=== PATIENT | female | born 1940 | race Caucasian/White ===

== ENCOUNTER → 2017-02-20 | Outpatient (CLI) | payer OTHER ==
[~2017-02-20] MED LIST: ASCRIPTIN PO; ATR25 PO; LEVO-217 PO; LISI-725 PO; MEPE1TAB PO; OXAZ10CA25 PO; [UNRECOGNIZED DRUG - CODE] PO
[2017-02-20 18:11] LABS: ALT/SGPT 31 U/L (12-78); AST/SGOT 18 U/L (15-37); BLOOD UREA NITROGEN 19 mg/dl (7-18); BUN/CREATININE RATIO 19.1 (10-20); CARBON DIOXIDE 29 mmol/L (21-32); CHLORIDE 104 mmol/L (98-107); GLUCOSE 107 mg/dl (70-99); POTASSIUM 4.1 mmol/L (3.5-5.1); SODIUM 139 mmol/L (136-145)
[2017-02-20 18:21] LABS: ALKALINE PHOSPHATASE 155 U/L (45-117)
== END | disposition home or self-care (01) ==
LOC: C.LABPVFM 12:54
PROVIDERS: ATTEND Family Medicine
DX: E03.9 Hypothyroidism, unspecified (principal); I10 Essential (primary) hypertension; M26.609 Unspecified temporomandibular joint disorder, unspecified side; E55.9 Vitamin D deficiency, unspecified

== ENCOUNTER → 2018-02-01 | Outpatient (CLI) | payer OTHER ==
[2018-02-01 17:39] LABS: HEMATOCRIT 42.8 % (37-47); HEMOGLOBIN 14.2 g/dL (12.0-16.0); MEAN CELL VOLUME 90.7 fL (80-100); MEAN CORPUSCULAR HEMOGLOBIN 30.1 pg (25-34); MEAN CORPUSCULAR HGB CONC 33.2 g/dl (32-36); MEAN PLATELET VOLUME 9.5 fL (7.4-10.4); PLATELET COUNT 270 K/uL (130-400); RED CELL DISTRIBUTION WIDTH CV 12.8 % (11.5-14.5); RED CELL DISTRIBUTION WIDTH SD 42.7 fL (36.4-46.3); WHITE BLOOD COUNT 5.51 K/uL (4.8-10.8)
[2018-02-01 18:14] LABS: ALBUMIN 3.9 gm/dl (3.4-5.0); ALT/SGPT 22 U/L (12-78); AST/SGOT 14 U/L (15-37); BLOOD UREA NITROGEN 16 mg/dl (7-18); CALCIUM 9.2 mg/dl (8.5-10.1); CARBON DIOXIDE 28 mmol/L (21-32); CREATININE 1.07 mg/dl (0.60-1.20); GLUCOSE 102 mg/dl (70-99); POTASSIUM 3.7 mmol/L (3.5-5.1); SODIUM 136 mmol/L (136-145)
[2018-02-01 18:26] LABS: ALKALINE PHOSPHATASE 164 U/L (45-117); CHOLESTEROL 241 mg/dl (0-200); LDL CHOLESTEROL CALCULATED 147 mg/dl
[2018-02-02 07:54] LABS: HEMOGLOBIN A1C 5.7 % (4.5-5.6)
== END | disposition home or self-care (01) ==
LOC: C.LABPVFM 13:04
PROVIDERS: ATTEND Family Medicine
DX: I10 Essential (primary) hypertension (principal); E78.5 Hyperlipidemia, unspecified; R73.9 Hyperglycemia, unspecified; E55.9 Vitamin D deficiency, unspecified; E03.9 Hypothyroidism, unspecified

== ENCOUNTER 2024-06-03 15:21 | Inpatient (IN) ==
--- NOTE | 2024-06-03 16:06 | Emergency Department Note ---
Impression & Plan Abdominal pain, Transaminitis, Elevated bilirubin, Vomiting, HTN (hypertension) ED Provider Note NAME: LAURA SOLOMON AGE: 83 SEX: F : 1940 ARRIVES VIA: Ambulance INFORMANT: Patient ED PROVIDER(S): Jomar Morales DO CHIEF COMPLAINT: abdominal pain HPI: Patient is a 83-year-old female who presents to the ER with a past medical history of hyperlipidemia, hypertension for right lower quadrant abdominal pain associated with nausea, vomiting, and diarrhea. She also has pain in the left flank associated with this. Does admit to a history of cholecystectomy and appendectomy. Symptoms have been present since Sunday. She denies any other exacerbating or remitting factors. No fevers. ADDITIONAL HISTORY OBTAINED: Per HPI Chronic Medical/Social Conditions Affecting Care: Per HPI PAST MEDICAL HISTORY:See Below PAST SURGICAL HISTORY:See Below FAMILY HISTORY:See Below SOCIAL HISTORY:See Below HOME MEDICATIONS:See Below ALLERGIES:See Below VITALS:See Below PHYSICAL EXAMINATION: GENERAL: Sitting up in bed, alert, well appearing, well nourished, no distress, non-toxic EYE EXAM: normal conjunctiva. PERRL and EOM's grossly intact. OROPHARYNX: mucous membranes are moist NECK: supple, no nuchal rigidity, no adenopathy, non-tender LUNGS: Clear to auscultation. Normal chest wall mechanics HEART: no murmurs, S1 normal and S2 normal ABDOMEN: abdomen soft, non-tender, normo-active bowel sounds, no masses, no rebound or guarding. BACK: Back is symmetrical on inspection and there is no deformity, no midline tenderness, no CVA tenderness. SKIN: no rashes and no bruising UPPER EXTREMITIES: upper extremities are grossly normal. LOWER EXTREMITIES: No pitting edema. NEURO EXAM: Normal sensorium, cranial nerves II-XII grossly intact, normal speech, no gross weakness of arms, no gross weakness of legs. MEDICAL DECISION MAKING: Patient is an 83-year-old female who presents ER for the above-stated complaint. IV was established blood work was obtained. Labs show no significant leukocytosis or anemia. INR was unremarkable. BMP with a hypokalemia 3.3. LFTs with a significant transaminitis of 300-400. T. bili at 5 lipase was normal. UA without white cells. I discussed with GI and they are agreeable to keeping the patient here and getting an MRCP as an inpatient. The hospitalist refused until results of the MRCP. MRCP was ordered and was negative. IV discussed with the hospitalist and they will admit. Patient was given IV fluids Reglan Zofran and updated bedside. Patient was also given Toradol and hydralazine for the elevated blood pressure. Consults/Care Managements Discussions: Per MDM Triage Nursing notes reviewed. Limited review of prior medical records performed Vital Signs: reviewed and remarkable for no significant abnormalities Differential diagnosis: Differential diagnoses includes but is not limited to gastritis, peptic ulcer disease, GERD, gallbladder disease, pancreatitis, small bowel obstruction, appendicitis, diverticulitis, hernia, urinary tract infection, torsion, perforation, trauma, infectious. ER treatment provided: See below Diagnostics interpreted by me include EKG and cardiac monitoring as listed below: -Cardiac Monitoring: An order was placed for continuous cardiac monitoring. The monitor shows a rate of 70 with sinus rhythm. -ECG: Sinus rhythm rate of 66 Left axis No PVCs QTc 423 -Laboratory studies:Interpreted by me as stated above in MDM and shown below. Imaging studies: Xrays: As interpreted by me:none CTs show: CT abdomen pelvis per my preliminary interpretation showed no obvious bowel obstruction CT abdomen pelvis per radiology as described above MRCP showed no obstruction Procedures:none Critical Care: None Past Med/Surg History Problem List (Updated 06/03/24 @ 22:20 by Jomar Morales DO) HTN (hypertension) (Acute) Vomiting (Acute) Elevated bilirubin (Acute) Transaminitis (Acute) Abdominal pain (Acute) Impacted cerumen of both ears Routine health maintenance (Chronic) Vitamin D deficiency (Chronic) Temporomandibular joint dysfunction syndrome (Chronic) Hypothyroidism (Chronic) Hyperlipidemia (Chronic) Elevated blood sugar level (Acute) History of mandibular surgery No pertinent family history HTN (hypertension) TMJ (dislocation of temporomandibular joint) Medical History Elevated blood sugar level HTN (hypertension) Hyperlipidemia Hypothyroidism No pertinent family history Temporomandibular joint dysfunction syndrome TMJ (dislocation of temporomandibular joint) Vitamin D deficiency Surgical History H/O oophorectomy History of mandibular surgery Family History Mother Hypertension Denies family history of Ovarian cancer Prostate cancer Diabetes Myocardial infarction Breast cancer Colorectal cancer Social History Smoking Status: Never smoker Second Hand Exposure: No; Do You Dip or Chew Tobacco: No; Hx Alcohol Use: No Hx Substance Use: No Preferred Language: Turkish Communication Ability: Effective Visual Impairment: No Limitations Hearing Ability: Normal marital status: Current Living Situation: Spouse current occupational status: retired How many Children do You have: 3 Feels Safe at Home: Yes Childhood Exposure to Second-Hand Smoke: Yes Diet: regular caffeine: Yes (coffee) Physical Activity Frequency: 1-2 Times per Week Seatbelt Use: sometimes Sunscreen Use: No Allergies Allergies Allergy/AdvReac Type Severity Reaction Status Date / Time acetaminophen Allergy Unknown Unknown Verified 06/03/24 18:29 codeine Allergy Unknown Unknown Verified 06/03/24 18:29 cyclobenzaprine Allergy Unknown Unknown Verified 06/03/24 18:29 diazepam Allergy Unknown Unknown Verified 06/03/24 18:29 Opioids - Morphine Analogues Allergy Unknown Unknown Verified 06/03/24 18:29 oxycodone Allergy Unknown Unknown Verified 06/03/24 18:29 propoxyphene Allergy Unknown Unknown Verified 06/03/24 18:29 Home Meds Home Medications Medication Instructions Recorded Confirmed atorvastatin 40 mg tablet 40 mg PO DAILY 06/03/24 06/03/24 hydroxyzine pamoate 50 mg capsule 50 mg PO HS 06/03/24 06/03/24 meprobamate 400 mg tablet 400 mg PO .Q4-6XDAY PRN pain 06/03/24 06/03/24 oxazepam 10 mg capsule 10 mg PO .Q4-6XDAY PRN TMJ 06/03/24 06/03/24 Previous Rx's Medication Instructions Recorded cholecalciferol (vitamin D3) 50 2,000 units PO DAILY #30 caps 05/13/19 mcg (2,000 unit) capsule hydrochlorothiazide 12.5 mg tablet 12.5 mg PO DAILY #90 tabs 07/13/23 lisinopril 20 mg tablet 20 mg PO DAILY #90 tabs 07/13/23 morphine 15 mg tablet,extended 15 mg PO HS PRN severe pain #90 05/08/24 release tabs levothyroxine 75 mcg tablet 75 mcg PO DAILY #30 tabs 05/23/24 Results & Data (ED) Vital Signs Vital Signs - 24 hr 06/03/24 15:45 06/03/24 15:45 06/03/24 15:54 Temperature 37.0 C Temperature Source Oral Pulse Rate 67 66 70 Pulse Rate from SpO2 Sensor Pulse Rhythm Regular Pulse Strength Normal Respiratory Rate 15 23 Respiratory Effort / Characteristics Non-Labored Respiratory Depth Normal Respiratory Pattern Regular Blood Pressure 175/128 H Blood Pressure Mean 143 Blood Pressure Position Lying Pulse Oximetry 95 Oxygen Delivery Method Room Air Sepsis Recent Fever Within 48 Hours No Sepsis New/Unexplained Change in Mental Status N/A Sepsis Action Taken by Nursing No Action Required 06/03/24 15:56 06/03/24 16:00 06/03/24 16:00 Temperature Temperature Source Pulse Rate 70 65 Pulse Rate from SpO2 Sensor Pulse Rhythm Pulse Strength Respiratory Rate 23 20 Respiratory Effort / Characteristics Respiratory Depth Respiratory Pattern Blood Pressure 187/83 H Blood Pressure Mean 144 Blood Pressure Position Pulse Oximetry 95 Oxygen Delivery Method Room Air Sepsis Recent Fever Within 48 Hours Sepsis New/Unexplained Change in Mental Status Sepsis Action Taken by Nursing 06/03/24 16:00 06/03/24 16:24 06/03/24 16:30 Temperature Temperature Source Pulse Rate 63 Pulse Rate from SpO2 Sensor Pulse Rhythm Pulse Strength Respiratory Rate 25 H Respiratory Effort / Characteristics Respiratory Depth Respiratory Pattern Blood Pressure 187/83 H 195/92 H Blood Pressure Mean 144 129 Blood Pressure Position Pulse Oximetry Oxygen Delivery Method Sepsis Recent Fever Within 48 Hours Sepsis New/Unexplained Change in Mental Status Sepsis Action Taken by Nursing 06/03/24 16:30 06/03/24 16:36 06/03/24 16:57 Temperature Temperature Source Pulse Rate 67 63 Pulse Rate from SpO2 Sensor 63 Pulse Rhythm Pulse Strength Respiratory Rate 25 H 19 Respiratory Effort / Characteristics Respiratory Depth Respiratory Pattern Blood Pressure 195/92 H Blood Pressure Mean 129 Blood Pressure Position Pulse Oximetry 97 Oxygen Delivery Method Sepsis Recent Fever Within 48 Hours Sepsis New/Unexplained Change in Mental Status Sepsis Action Taken by Nursing 06/03/24 17:00 06/03/24 17:09 06/03/24 17:24 Temperature Temperature Source Pulse Rate 58 L 63 Pulse Rate from SpO2 Sensor 58 L 63 Pulse Rhythm Pulse Strength Respiratory Rate 18 Respiratory Effort / Characteristics Respiratory Depth Respiratory Pattern Blood Pressure 201/92 H Blood Pressure Mean 135 Blood Pressure Position Pulse Oximetry 95 99 Oxygen Delivery Method Sepsis Recent Fever Within 48 Hours Sepsis New/Unexplained Change in Mental Status Sepsis Action Taken by Nursing 06/03/24 17:26 06/03/24 17:30 06/03/24 17:30 Temperature Temperature Source Pulse Rate Pulse Rate from SpO2 Sensor Pulse Rhythm Pulse Strength Respiratory Rate Respiratory Effort / Characteristics Respiratory Depth Respiratory Pattern Blood Pressure 200/102 H 208/94 H 208/94 H Blood Pressure Mean 140 126 126 Blood Pressure Position Pulse Oximetry Oxygen Delivery Method Sepsis Recent Fever Within 48 Hours Sepsis New/Unexplained Change in Mental Status Sepsis Action Taken by Nursing 06/03/24 17:30 06/03/24 17:30 06/03/24 17:30 Temperature Temperature Source Pulse Rate 61 Pulse Rate from SpO2 Sensor 61 Pulse Rhythm Pulse Strength Respiratory Rate 26 H Respiratory Effort / Characteristics Respiratory Depth Respiratory Pattern Blood Pressure 208/94 H 208/94 H Blood Pressure Mean 126 126 Blood Pressure Position Pulse Oximetry 98 Oxygen Delivery Method Sepsis Recent Fever Within 48 Hours Sepsis New/Unexplained Change in Mental Status Sepsis Action Taken by Nursing 06/03/24 18:00 06/03/24 18:00 06/03/24 18:03 Temperature Temperature Source Pulse Rate Pulse Rate from SpO2 Sensor 61 Pulse Rhythm Pulse Strength Respiratory Rate Respiratory Effort / Characteristics Respiratory Depth Respiratory Pattern Blood Pressure 170/88 H 170/88 H Blood Pressure Mean 133 133 Blood Pressure Position Pulse Oximetry 93 Oxygen Delivery Method Sepsis Recent Fever Within 48 Hours Sepsis New/Unexplained Change in Mental Status Sepsis Action Taken by Nursing 06/03/24 18:30 06/03/24 18:32 06/03/24 18:32 Temperature Temperature Source Pulse Rate 63 Pulse Rate from SpO2 Sensor Pulse Rhythm Pulse Strength Respiratory Rate 29 H Respiratory Effort / Characteristics Respiratory Depth Respiratory Pattern Blood Pressure 224/85 H 224/85 H Blood Pressure Mean 101 101 Blood Pressure Position Pulse Oximetry Oxygen Delivery Method Sepsis Recent Fever Within 48 Hours Sepsis New/Unexplained Change in Mental Status Sepsis Action Taken by Nursing 06/03/24 18:38 06/03/24 18:38 06/03/24 19:34 Temperature Temperature Source Pulse Rate 72 Pulse Rate from SpO2 Sensor Pulse Rhythm Pulse Strength Respiratory Rate Respiratory Effort / Characteristics Respiratory Depth Respiratory Pattern Blood Pressure 204/83 H 204/83 H Blood Pressure Mean 111 111 Blood Pressure Position Pulse Oximetry Oxygen Delivery Method Sepsis Recent Fever Within 48 Hours Sepsis New/Unexplained Change in Mental Status Sepsis Action Taken by Nursing Laboratory Data 06/03/24 16:33 06/03/24 16:33 Lab Results 06/03/24 06/03/24 Range/Units 16:33 16:47 WBC 9.08 (4.8-10.8) K/ul RBC 4.88 (4.20-5.40) M/uL Hgb 15.1 (12.0-16.0) g/dl Hct 43.2 (37.0-47.0) % MCV 88.5 (80.0-100.0) fL MCH 30.9 (25.0-34.0) pg MCHC 35.0 (32.0-36.0) g/dL RDW Std Deviation 41.0 (36.4-46.3) fL RDW Coeff of Mj 12.7 (11.5-14.5) % Plt Count 223 (130-400) K/uL MPV 9.8 (9.4-12.4) fL Immature Gran % (Auto) 0.3 % Neut % (Auto) 82.9 % Lymph % (Auto) 8.9 % [place] % (Auto) 7.7 % Eos % (Auto) 0.0 % Baso % (Auto) 0.2 % Neut # (Auto) 7.52 H (1.40-6.50) K/uL Lymph # (Auto) 0.81 L (1.20-3.40) K/uL [place] # (Auto) 0.70 H (0.11-0.59) K/uL Eos # (Auto) 0.00 (0.00-0.50) K/uL Baso # (Auto) 0.02 (0.00-0.20) K/uL Immature Gran # (Auto) 0.03 (0.01-0.20) K/uL PT 10.9 (9.0-12.0) Seconds INR 1.0 (0.9-1.1) Sodium 140 (136-145) mmol/L Potassium 3.3 L (3.5-5.1) mmol/L Chloride 100 (98-107) mmol/L Carbon Dioxide 28 (21-32) mmol/L Anion Gap 12 H (3-11) BUN 17 (6-23) mg/dl Creatinine 1.00 (0.6-1.2) mg/dl Est Cr Clr Drug Dosing 37.1 ml/min Est GFR ( Amer) 61.2 ml/min Est GFR (Non-Af Amer) 52.8 ml/min BUN/Creatinine Ratio 17.0 (10-20) Glucose 128 H (70-99(Fasting)) mg/dl Calcium 9.8 (8.6-10.3) mg/dl Total Bilirubin 5.0 H (0.2-1.0) mg/dl AST 387 H (13-39) U/L ALT 461 H (7-52) U/L Alkaline Phosphatase 428 H (34-104) U/L Total Protein 8.4 H (6.0-8.3) gm/dl Albumin 4.8 (3.4-5.0) gm/dl Globulin 3.6 (2.5-4.0) gm/dl Albumin/Globulin Ratio 1.3 (0.9-2) Lipase 9 L (11-82) U/L Urine Color Dark Yellow Urine Appearance Clear (Clear) Urine pH 5.5 (4.5-7.5) Ur Specific [place] 1.026 (1.000-1.030) Urine Protein 2+ H (Negative) Urine Glucose (UA) Negative (Negative) Urine Ketones Negative (Negative) Urine Blood Trace H (Negative) Urine Nitrite Negative (Negative) Urine Bilirubin 2+ H (Negative) Urine Urobilinogen Negative (Negative) Ur Leukocyte Esterase Trace H (Negative) Urine WBC (Auto) 0-5 (0-5) /hpf Urine RBC (Auto) 3-5 H (0-2) /hpf U Hyaline Cast (Auto) 0-2 (0-2) /lpf U Epithel Cells (Auto) 6-10 H (0-2) /hpf Urine Bacteria (Auto) 2+ H (None Seen) Administered Medications Discontinued Medications Hydralazine HCl (Hydralazine Hcl 20 Mg/Ml Vial) 10 mg IV NOW STA Stop: 06/03/24 18:51 Last Admin: 06/03/24 19:03 Dose: 10 mg Documented By: JERILYN Sodium Chloride (Nss) 500 mls @ 999 mls/hr IV .Q31M ONE Stop: 06/03/24 16:33 Last Infusion: 06/03/24 17:56 Dose: Infused Documented By: Admin: 06/03/24 16:39 Dose: 999 mls/hr Documented By: JERILYN Ioversol (Optiray 320 100ml) 95 ml IV ONCE ONE Stop: 06/03/24 17:43 Last Admin: 06/03/24 17:42 Dose: 95 ml Documented By: HARSHAL Ketorolac Tromethamine (Ketorolac Tromethamine 15 Mg/Ml Vial) 10 mg IV NOW ONE Stop: 06/03/24 20:30 Last Admin: 06/03/24 20:59 Dose: 10 mg Documented By: JERILYN Metoclopramide HCl (Metoclopramide Hcl Inj 5 Mg/Ml 2 Ml Vial) 5 mg IV NOW STA Stop: 06/03/24 21:21 Last Admin: 06/03/24 21:30 Dose: 5 mg Documented By: JERILYN Ondansetron HCl (Ondansetron Inj 2 Mg/Ml 2 Ml Vial) 4 mg IV NOW STA Stop: 06/03/24 16:04 Last Admin: 06/03/24 16:38 Dose: 4 mg Documented By: JERILYN Imaging Data Radiologist's Impression: Abdomen/Pelvis CT 06/03/24 16:02 CT abd pelvis IV con only CLINICAL HISTORY: RLQ abd pain and flank pain TECHNIQUE: Helical axial images of the abdomen and pelvis were obtained and displayed. Automated dose lowering techniques and/or adjustment according to patient size were utilized for this exam. This exam was performed with intravenous contrast. CT DOSE: 1168.69 mGy.cm COMPARISON: None available at the time of this dictation. FINDINGS: Lower chest: Bibasilar atelectasis versus scarring is seen. Liver: Unremarkable. No focal lesions are seen. Gallbladder and biliary tree: Patient is status post cholecystectomy. Physiologic prominence of the biliary ducts is noted. Pancreas: Unremarkable, no focal lesions. Spleen: Unremarkable. Adrenals: Unremarkable. Kidneys and ureters: Unremarkable. Bladder: Unremarkable. Reproductive organs: Unremarkable. Bowel: Patient is status post appendectomy. A hiatal hernia is seen. Lymph nodes Retroperitoneal: Unremarkable. Pelvic: Unremarkable. Mesenteric: Unremarkable. Peritoneum: Normal. Vessels: Atherosclerotic calcifications are seen. Abdominal wall: Unremarkable. Bones: Degenerative changes in the visualized spine. IMPRESSION: 1. No acute abnormalities are seen. 2. Status post colectomy. 3. Additional findings are seen. ACT 112: Negative or not required by law. Electronically signed by: Damien Robertson M.D. 06/03/2024 6:05 PM Cholangiopancreatography MRI 06/03/24 19:09 Exam(s): MRI MRCP EXAM: MR Abdomen Without Intravenous Contrast, MRCP Protocol CLINICAL HISTORY: Reason for exam: obstructive liver enzyme pattern. TECHNIQUE: Multiplanar magnetic resonance images of the abdomen without intravenous contrast using MRCP protocol. COMPARISON: CT abdomen and pelvis 06/03/24 FINDINGS: Gallbladder is surgically absent. There is intrahepatic and extra hepatic bile duct dilatation. Common bile duct measures up to 1.5 cm. No choledocholithiasis or obstructing mass lesion is visible. Pancreas appears within normal limits. Pancreatic duct is normal in caliber. Spleen and adrenal glands are unremarkable. Kidneys are similar in size and contour. There is no hydronephrosis. Small simple parapelvic cysts are present bilaterally, more numerous in the left kidney; no follow-up is required. There is no aortic aneurysm. Bowel gas pattern is nonobstructive. IMPRESSION: Biliary dilatation in the setting of cholecystectomy without visible choledocholithiasis or obstructing mass. Consider ERCP for further characterization. Electronically signed by: Edward Ordaz M.D. 06/03/24 22:09 PM Discharge Plan Visit Data Chief Complaint: Abdominal Pain ED Provider: Jomar Morales Discharge Problem: Abdominal pain, Transaminitis, Elevated bilirubin, Vomiting, HTN (hypertension) Forms Stand Alone Forms: [facility] [employer] Prescriptions Prescriptions: No Action lisinopril 20 mg tablet 20 mg PO DAILY Qty: 90 1RF Rx Instructions: PER EXT MED HX--LAST FILLED 07/13/23 FOR 90 TABS. hydrochlorothiazide 12.5 mg tablet 12.5 mg PO DAILY Qty: 90 1RF Rx Instructions: PER EXT MED HX--LAST FILLED 07/13/23 FOR 90 TABS. morphine 15 mg tablet extended release 15 mg PO HS PRN (Reason: severe pain) Qty: 90 0RF levothyroxine 75 mcg tablet 75 mcg PO DAILY Qty: 30 2RF cholecalciferol (vitamin D3) 2,000 unit capsule 2,000 units PO DAILY Qty: 30 0RF atorvastatin 40 mg tablet 40 mg PO DAILY Rx Instructions: PER EXT MED HX --LAST FILLED 01/17/24 FOR 90 TABS oxazepam 10 mg capsule 10 mg PO .Q4-6XDAY PRN (Reason: TMJ) meprobamate 400 mg tablet 400 mg PO .Q4-6XDAY PRN (Reason: pain) hydroxyzine pamoate 50 mg capsule 50 mg PO HS Rx Instructions: PER EXT MED LIST-- CAN BE TAKEN Q4H. Referrals Referrals: Mary Mckeon MD [Primary Care Provider] - Discharge Problem: Abdominal pain Qualifiers: Abdominal location: unspecified location Qualified Code(s): R10.9 - Unspecified abdominal pain Vomiting Qualifiers: Vomiting type: unspecified Nausea presence: unspecified Qualified Code(s): R 11.10 - Vomiting, unspecified HTN (hypertension) Qualifiers: Hypertension type: unspecified Qualified Code(s): I10 - Essential (primary) hypertension
[2024-06-03] MEDS: ONDANSETRON INJ 2 MG/ML 2 ML VIAL IV STA (16:38)
[2024-06-03] MEDS: SODIUM CHLORIDE 0.9% 500 ML IV ONE (16:39)
[2024-06-03 16:52] LABS: Basophils # (auto) 0.02 K/uL (0.00-0.20); Basophils % (auto) 0.2 %; Hematocrit (blood only) 43.2 % (37.0-47.0); Hemoglobin 15.1 g/dl (12.0-16.0); Immature Granulocytes # (auto) 0.03 K/uL (0.01-0.20); Immature Granulocytes % (auto) 0.3 %; Lymphocytes # (auto) 0.81 K/uL (1.20-3.40); Lymphocytes % (auto) 8.9 %; Mean Corpuscular Hemoglobin 30.9 pg (25.0-34.0); Mean Corpuscular Volume 88.5 fL (80.0-100.0); Mean Platelet Volume 9.8 fL (9.4-12.4); Monocytes % (auto) 7.7 %; Neutrophils # (auto) 7.52 K/uL (1.40-6.50); Neutrophils % (auto) 82.9 %; Platelet Count 223 K/uL (130-400); RDW Coefficient of Variation 12.7 % (11.5-14.5); Red Blood Count 4.88 M/uL (4.20-5.40); White Blood Count 9.08 K/ul (4.8-10.8)
[2024-06-03 17:02] LABS: Appearance Urine Clear (Clear); Bacteria Urine Automated 2+ (None Seen); Bilirubin Urine 2+ (Negative); Blood Urine Trace (Negative); Cast Urine Automated 0-2 /lpf (0-2); Color Urine Dark Yellow; Glucose Urine UA Negative (Negative); Ketones Urine Negative (Negative); Leukocyte Esterase Urine Trace (Negative); Nitrite Urine Negative (Negative); Protein Urine 2+ (Negative); Specific Gravity Urine 1.026 (1.000-1.030); Urobilinogen Urine Negative (Negative); WBC Urine Automated 0-5 /hpf (0-5); pH Urine 5.5 (4.5-7.5)
[2024-06-03 17:12] LABS: Albumin Globulin Ratio 1.3 (0.9-2); Albumin Level 4.8 gm/dl (3.4-5.0); Calcium 9.8 mg/dl (8.6-10.3); Creatinine Clr Calc Pharmacy 37.1 ml/min; Est GFR (African American) 61.2 ml/min; Est GFR (Non-African American) 52.8 ml/min; Globulin 3.6 gm/dl (2.5-4.0); Potassium 3.3 mmol/L (3.5-5.1); Total Protein 8.4 gm/dl (6.0-8.3)
[2024-06-03] MEDS: OPTIRAY 320 100ml IV ONE (17:42)
--- NOTE | 2024-06-03 18:07 | CT Scan Report ---
CT abd pelvis IV con only CLINICAL HISTORY: RLQ abd pain and flank pain TECHNIQUE: Helical axial images of the abdomen and pelvis were obtained and displayed. Automated dose lowering techniques and/or adjustment according to patient size were utilized for this exam. This e xam was performed with intravenous contrast. CT DOSE: 1168.69 mGy.cm COMPARISON: None available at the time of this dictation. FINDINGS: Lower chest: Bibasilar atelectasis versus scarring is seen. Liver: Unremarkable. No focal lesions are seen. Gallbladder and biliary tree: Patient is status post cholecystectomy. Physiologic prominence of the b iliary ducts is noted. Pancreas: Unremarkable, no focal lesions. Spleen: Unremarkable. Adrenals: Unremarkable. Kidneys and ureters: Unremarkable. Bladder: Unremarkable. Reproductive organs: Unremarkable. Bowel: Patient is status post appendectomy. A hiatal hernia is seen. Lymph nodes Retroperitoneal: Unremarkable. Pelvic: Unremarkable. Mesenteric: Unremarkable. Peritoneum: Normal. Vessels: Atherosclerotic calcifications are seen. Abdominal wall: Unremarkable. Bones: Degenerative changes in the visualized spine. IMPRESSION: 1. No acute abnormalities are seen. 2. Status post colectomy. 3. Additional findings are seen. ACT 112: Negative or not required by law. Electronically signed by: Damien Robertson M.D. 06/03/2024 6:05 PM
[2024-06-03] MEDS: hydrALAZINE HCL 20 MG/ML VIAL IV STA (19:03)
[2024-06-03] MEDS: KETOROLAC TROMETHAMINE 15 MG/ML VIAL IV ONE (20:59)
[2024-06-03 21:04] LABS: Prothrombin Time 10.9 Seconds (9.0-12.0)
[2024-06-03] MEDS: METOCLOPRAMIDE HCL INJ 5 MG/ML 2 ML VIAL IV STA (21:30)
--- NOTE | 2024-06-03 22:10 | Magnetic Resonance Report ---
Exam(s): MRI MRCP EXAM: MR Abdomen Without Intravenous Contrast, MRCP Protocol CLINICAL HISTORY: Reason for exam: obstructive liver enzyme pattern. TECHNIQUE: Multiplanar magnetic resonance images of the abdomen without intravenous contrast using MRCP protocol. COMPARISON: CT abdomen and pelvis 06/03/24 FINDINGS: Gallbladder is surgically absent. There is intrahepatic and extra hepatic bile duct dilatation. Common bile duct measures up to 1.5 cm. No choledocholithiasis or obstructing mass lesion is visible. Pancreas appears within normal limits. Pancreatic duct is normal in caliber. Spleen and adrenal glands are unremarkable. Kidneys are similar in size and contour. There is no hydronephrosis. Small simple parapelvic cysts are present bilaterally, more numerous in the left kidney; no follow-up is required. There is no aortic aneurysm. Bowel gas pattern is nonobstructive. IMPRESSION: Biliary dilatation in the setting of cholecystectomy without visible choledocholithiasis or obstructing mass. Consider ERCP for further characterization. Electronically signed by: Edward Ordaz M.D. 06/03/24 22:09 PM
--- NOTE | 2024-06-03 23:30 | History & Physical Report ---
Date of Service June 03, 2024 Assessment & Plan (1) HTN (hypertension): (2) Vomiting: (3) Transaminitis: (4) Hypothyroidism: (5) Hyperlipidemia: Plan Marisol is an 83-year-old female with past medical history of hypertension, TMJ dysfunction, hypothyroidism, hyperlipidemia, and history of cholecystectomy and appendectomy who was admitted due to abdominal pain with associated nausea and vomiting that has limited p.o. intake. Abdominal pain //abnormal LFTs -Patient with abdominal pain with associated nausea and vomiting in the setting of elevated AST at 387, ALT of 461, alk phos of 428, and T. bili of 5 -MRCP without evidence of choledocholithiasis however did show dilation of intrahepatic and extrahepatic bile ducts with the common bile duct measuring up to 1.5 cm. -Differential diagnosis at this time includes acute hepatitis, tickborne il lness, or autoimmune disorder like primary sclerosing cholangitis or autoimmune hepatitis given that patient has had similar symptoms in the past -Hepatitis panel ordered and collected. Result pending -Order antimitochondrial and anti-smooth muscle antibody testing -Will treat supportively with IV fluids, Zofran, and Tylenol for pain control -GI consulted. Appreciate recommendations -Monitor a.m. labs Asymptomatic UTI -UA showing positive leukocyte esterase and bacteria patient without dysuria, frequency, or urgency; no no suprapubic tenderness -No fevers or azul CVA tenderness to raise suspicion of pyelonephritis -Will hold off on the biotic coverage for now as patient is asymptomatic, but may consider starting warranted if patient becomes febrile or new symptoms develop Hypertension -Patient usually takes lisinopril 20 mg daily and hydrochlorothiazide 12.5 mg daily at home -Did not take her blood pressure medications today due to significant nausea and vomiting -Blood pressure corrected after hydralazine administration. Patient has remained asymptomatic. -Will continue home antihypertensive regimen Hypothyroidism -Continue home levothyroxine 75 mcg Hyperlipidemia -Will hold atorvastatin 40 mg due to current transaminitis Dispo: Admit to MedSurg Fluids: LR at 200 cc/h Diet: N.p.o. for now but may advance as tolerated starting tomorrow if nausea is well controlled VTE ppx: Lovenox Code Status: Full History of Present Illness Chief Complaint: Abdominal pain Primary Care Provider: Mary Mckeon MD Marisol is a 83 y/o F who comes to the ED due to RUQ pain and left flank pain that began on Sunday (05/31/24). She had similar pain around 3 weeks ago, which resolved spontaneously. The same pain returned on 05/31/24 and was more marked in lower abdomen, RUQ and left flank. Associated sxs are nausea and bilious non- bloody vomiting. Due to nausea, has not been able to eat or drink much and was not able to take her antihypertensives this morning. No changes in bm, which have remained non-bloody. Patient states she has had the same symptoms on previous occasions over the last 3 years, one of which brought her to the ED. Denies any recent travel or sick contacts. Denies alcohol use or subtance use. Denies having fevers, chills, weakness, chest pain, SOB, or any other sxs. ED Course: Given Toradol 10 mg x1, Reglan 5 mg x1, Zofran 4 mg x1, NSS 1L bolus x2, Hydralazine 10 mg due to BP reaching ~220 systolic (asymptomatic) Labs/Imaging: CBC w/o leukocytosis but showing mild neutrophilia, hgb of 15.1, platelets wnl. CMP with mild hypokalemia (3.3) and no other electrolyte abnormalities, renal function wnl (Cr of 1). LFTs with AST of 387 and ALT 461, alk phos of 428, T.bili of 5. Normal lipase. U/A with possible UTI. Medical History: [Reviewed] Medications: [Reviewed] Surgical History: [Reviewed] Family history: [Reviewed] Allergies: [Reviewed] Social History: [Reviewed] Allergies Allergy/AdvReac Type Severity Reaction Status Date / Time acetaminophen Allergy Unknown Unknown Verified 06/03/24 18:29 codeine Allergy Unknown Unknown Verified 06/03/24 18:29 cyclobenzaprine Allergy Unknown Unknown Verified 06/03/24 18:29 diazepam Allergy Unknown Unknown Verified 06/03/24 18:29 Opioids - Morphine Analogues Allergy Unknown Unknown Verified 06/03/24 18:29 oxycodone Allergy Unknown Unknown Verified 06/03/24 18:29 propoxyphene Allergy Unknown Unknown Verified 06/03/24 18:29 Home Medications Medication Instructions Recorded Confirmed Type cholecalciferol (vitamin D3) 50 2,000 units PO DAILY #30 caps 05/13/19 06/03/24 Rx mcg (2,000 unit) capsule hydrochlorothiazide 12.5 mg tablet 12.5 mg PO DAILY #90 tabs 07/13/23 06/03/24 Rx lisinopril 20 mg tablet 20 mg PO DAILY #90 tabs 07/13/23 06/03/24 Rx morphine 15 mg tablet,extended 15 mg PO HS PRN severe pain #90 05/08/24 06/03/24 Rx release tabs levothyroxine 75 mcg tablet 75 mcg PO DAILY #30 tabs 05/23/24 06/03/24 Rx atorvastatin 40 mg tablet 40 mg PO DAILY 06/03/24 06/03/24 History hydroxyzine pamoate 50 mg capsule 50 mg PO HS 06/03/24 06/03/24 History meprobamate 400 mg tablet 400 mg PO .Q4-6XDAY PRN pain 06/03/24 06/03/24 History oxazepam 10 mg capsule 10 mg PO .Q4-6XDAY PRN TMJ 06/03/24 06/03/24 History Past Med/Surg History Problem List (Updated 06/03/24 @ 22:20 by Jomar Morales DO) HTN (hypertension) (Acute) Vomiting (Acute) Elevated bilirubin (Acute) Transaminitis (Acute) Abdominal pain (Acute) Impacted cerumen of both ears Routine health maintenance (Chronic) Vitamin D deficiency (Chronic) Temporomandibular joint dysfunction syndrome (Chronic) Hypothyroidism (Chronic) Hyperlipidemia (Chronic) Elevated blood sugar level (Acute) History of mandibular surgery No pertinent family history HTN (hypertension) TMJ (dislocation of temporomandibular joint) Medical History Elevated blood sugar level HTN (hypertension) Hyperlipidemia Hypothyroidism No pertinent family history Temporomandibular joint dysfunction syndrome TMJ (dislocation of temporomandibular joint) Vitamin D deficiency Surgical History H/O oophorectomy History of mandibular surgery Family History Mother Hypertension Denies family history of Ovarian cancer Prostate cancer Diabetes Myocardial infarction Breast cancer Colorectal cancer Social History Smoking Status: Never smoker Second Hand Exposure: No; Do You Dip or Chew Tobacco: No; Tobacco Cessation Education Requested by Patient: No Hx Alcohol Use: No Hx Substance Use: No Preferred Language: Chilean Communication Ability: Effective Visual Impairment: No Limitations Hearing Ability: Normal Linux Network Engineer Required: No Beliefs That Will Affect Care: None marital status: Current Living Situation: Spouse current occupational status: retired How many Children do You have: 3 Other Information That Helps Us Care for You: No Feels Safe at Home: Yes Safety Concerns: Feels Safe At This Time Childhood Exposure to Second-Hand Smoke: Yes Diet: regular caffeine: Yes (coffee) Physical Activity Frequency: 1-2 Times per Week Seatbelt Use: sometimes Sunscreen Use: No Assistive Devices: Glasses, Hospital Bed and Walker Review of Systems Review of Systems: As per HPI Physical Exam Physical Exam: GENERAL: AAOx3, afebrile, NAD HEAD: AT and NC EYES: EOM intact, ALFONZO, no scleral icterus CHEST: symmetrical chest expansions w/ respirations CARDIO: RRR, murmur in right sternal border, no rubs or gallops PULMONARY: CTA, normal respiratory effort, no respiratory distress GI: soft, non-distended, mild tenderness with palpation of left CVA that is not the same pain she has been experiencing, no pain on palpation of RUQ or other abdominal regions, no suprapubic tenderness EXTREMITIES: no swelling or calf tenderness in b/l LE SKIN: no rashes, warm, dry Results & Data Results & Data Vital Signs (Past 12 Hours) Vital Signs Temp Pulse Resp BP Pulse Ox O2 Del Method 06/03/24 21:06 66 16 06/03/24 20:42 66 17 96 06/03/24 20:24 82 18 06/03/24 20:00 160/80 H 06/03/24 20:00 160/80 H 06/03/24 19:42 70 15 06/03/24 19:36 71 17 06/03/24 19:34 72 06/03/24 19:30 166/71 H 06/03/24 19:30 166/71 H 06/03/24 19:30 166/71 H 06/03/24 19:21 172/81 H 06/03/24 19:21 172/81 H 06/03/24 19:21 71 17 06/03/24 19:01 177/119 H 06/03/24 18:48 66 16 06/03/24 18:42 67 19 06/03/24 18:38 204/83 H 06/03/24 18:38 204/83 H 06/03/24 18:32 224/85 H 06/03/24 18:32 224/85 H 06/03/24 18:30 63 29 H 06/03/24 18:03 93 06/03/24 18:00 170/88 H 06/03/24 18:00 170/88 H 06/03/24 17:30 61 26 H 98 06/03/24 17:30 208/94 H 06/03/24 17:30 208/94 H 06/03/24 17:30 208/94 H 06/03/24 17:30 208/94 H 06/03/24 17:26 200/102 H 06/03/24 17:24 63 18 99 06/03/24 17:09 58 L 95 06/03/24 17:00 201/92 H 06/03/24 16:57 63 19 97 06/03/24 16:36 67 25 H 06/03/24 16:30 195/92 H 06/03/24 16:30 195/92 H 06/03/24 16:24 63 25 H 06/03/24 16:00 187/83 H 06/03/24 16:00 187/83 H 06/03/24 16:00 65 20 06/03/24 15:56 70 23 95 Room Air 06/03/24 15:54 37.0 C 70 23 175/128 H 95 Room Air 06/03/24 15:45 66 15 06/03/24 15:45 67 Supervising Physician Co-Signing Physician Notes Attending addendum: I have physically seen this patient, have supervised the medical residents activities, and agree with the H&P unless as otherwise noted. Assessment and Plan: Abnormal LFTs- NPO except meds Total bilirubin 5.0, AST 387, ALT 461 28, total protein 8.4 CT scan abdomen pelvis without acute findings, rotation of status post colectomy MRCP without evidence of choledocholithiasis, but does show dilation of intrahepatic and extrahepatic bile ducts with common bile duct measuring up to 1.5 cm. Recommendation for ERCP as follow-up Order acute hepatitis panel Order ESR, antimitochondrial antibody, anti-smooth muscle antibody and YOBANY Pantoprazole 40 mg IV daily Zofran 4 mg IV every 4 hours as needed NSS 1 L bolus LR at 200 mL/h x 1 Follow-up CBC with differential, chemistry profile and magnesium level in a.m Consult gastroenterology Hypertension- Hold HCTZ and lisinopril Hyperlipidemia- Hold atorvastatin Resident Activity Tracking Resident Involvement: Resident Care Provided Care Provided: Adult Hospital Medicine (1) HTN (hypertension) Hypertension type: unspecified Qualified Code(s): I10 - Essential (primary) hypertension (2) Vomiting Nausea presence: unspecified Vomiting type: unspecified Qualified Code(s): R11.10 - Vomiting, unspecified (4) Hypothyroidism Hypothyroidism type: acquired Qualified Code(s): E03.9 - Hypothyroidism, unspecified (5) Hyperlipidemia Hyperlipidemia type: mixed hyperlipidemia Qualified Code(s): E78.2 - Mixed hyperlipidemia
[2024-06-03] MEDS: SODIUM CHLORIDE 0.9% 1,000 ML IV ONE (23:43)
[2024-06-03 23:51] LABS: Hep B Surface Ag with confirm Negative (Negative)
[2024-06-03 23:56] LABS: Hep C Ab Rflx HepCQuant RNA Negative (Negative)
[2024-06-04] MEDS ORDERED: ACETAMINOPHEN 325 MG TAB PO PRN (01:23)
[2024-06-04] MEDS: LACTATED RINGER'S 1,000 ML IV SCH (01:23)
[2024-06-04] MEDS ORDERED: OXAZEPAM 10 MG PO PRN (01:23)
[2024-06-04] MEDS: KETOROLAC TROMETHAMINE 15 MG/ML VIAL IV ONE ×2 (03:12→07:57)
--- NOTE | 2024-06-04 03:41 | Billing Data ---
Date of Service June 04, 2024 Coding Level of Care Code 57288 INT INP/OBS CARE
[2024-06-04] MEDS: LEVOTHYROXINE SODIUM 75 MCG TABLET PO SCH (06:27)
[2024-06-04 06:41] LABS: Basophils # (auto) 0.02 K/uL (0.00-0.20); Basophils % (auto) 0.3 %; Eosinophils # (auto) 0.01 K/uL (0.00-0.50); Eosinophils % (auto) 0.1 %; Immature Granulocytes # (auto) 0.03 K/uL (0.01-0.20); Immature Granulocytes % (auto) 0.4 %; Lymphocytes # (auto) 0.73 K/uL (1.20-3.40); Lymphocytes % (auto) 9.7 %; Mean Corpuscular Hemoglobin 30.6 pg (25.0-34.0); Mean Corpuscular Hgb Conc 34.2 g/dL (32.0-36.0); Mean Corpuscular Volume 89.4 fL (80.0-100.0); Mean Platelet Volume 9.9 fL (9.4-12.4); Monocytes # (auto) 0.59 K/uL (0.11-0.59); Monocytes % (auto) 7.9 %; Neutrophils # (auto) 6.11 K/uL (1.40-6.50); Neutrophils % (auto) 81.6 %; Platelet Count 183 K/uL (130-400); RDW Coefficient of Variation 12.5 % (11.5-14.5); RDW Standard Deviation 41.3 fL (36.4-46.3); Red Blood Count 4.25 M/uL (4.20-5.40); White Blood Count 7.49 K/ul (4.8-10.8)
[2024-06-04 07:08] LABS: Alanine Aminotransferase 340 U/L (7-52); Albumin Globulin Ratio 1.4 (0.9-2); Albumin Level 3.6 gm/dl (3.4-5.0); Alkaline Phosphatase 333 U/L (34-104); Anion Gap 8 (3-11); Aspartate Aminotransferase 180 U/L (13-39); BUN Creatinine Ratio 18.5 (10-20); Bilirubin Direct 0.6 mg/dl (0-0.2); Bilirubin,Total 1.8 mg/dl (0.2-1.0); Blood Urea Nitrogen 17 mg/dl (6-23); C Reactive Protein < 0.50 mg/dl (0-0.5); Calcium 8.5 mg/dl (8.6-10.3); Carbon Dioxide 28 mmol/L (21-32); Chloride 105 mmol/L (98-107); Creatinine Clr Calc Pharmacy 39.3 ml/min; Est GFR (African American) 67.7 ml/min; Est GFR (Non-African American) 58.4 ml/min; Globulin 2.6 gm/dl (2.5-4.0); Glucose 100 mg/dl (70-99(Fasting)); Potassium 3.6 mmol/L (3.5-5.1); Sodium 141 mmol/L (136-145); Total Protein 6.2 gm/dl (6.0-8.3)
[2024-06-04] MEDS: ONDANSETRON INJ 2 MG/ML 2 ML VIAL IV PRN (07:58)
[2024-06-04] MEDS ORDERED: hydroCHLOROthiazide 25 MG TAB PO SCH (09:00)
[2024-06-04] MEDS ORDERED: lisinopril 20 MG TAB PO SCH (09:00)
[2024-06-04] MEDS ORDERED: CHOLECALCIFEROL 25 MCG (1000 UNITS) TAB PO SCH (09:00)
--- NOTE | 2024-06-04 10:16 | Gastrointestinal Consultation ---
Date of Consultation June 04, 2024 Assessment & Plan (1) Elevated bilirubin: 83 year old female w/ history of HTN, hypothyroidism, hyperlipidemia s/p CCY years ago admitted with LLQ pain, nausea/vomiting and elevated transaminases. CT and MR imaging with CBD dilation of 1.5 cm without apparent mass/stone/lesion. Interestingly, her LFTs are improving overnight with downtrending Tbili 5 --> 1 and she has been afebrile without leukocytosis with normal INR and normal mental status. DDX discussed including passed biliary stone, infectious hepatitis, DILI, autoimmune hepatitis vs other. Given symptomatic improvement, downtrending LFTs and no current evidence of cholangitis, no urgent indication for EUS/ERCP evaluation Symptomatic management NPO for bowel rest May advance to clear liquids once pain is controlled IVF maintenance Analgesia PRN Antiemetics PRN Trend LFTs Follow autoimmune studies Follow acute hepatitis panel Thank you for allowing us to participate in the care of this patient. Please call with any acute changes, questions or concerns. Please see addendum below with additional recommendation from my supervising physician. I spent a total of 80 minutes on the date of service in review of patient's record, and previously obtained information in person and appropriate medical visit, discussion and education of plan, with patient and/or caregiver, placing orders for tests/referral/procedures as medically necessary and documentation of pertinent clinical information in patient's medical records for their visit today. Supervising Physician Co-Signing Physician Notes I personally saw and examined the patient. I have reviewed the chart and agree with the documentation provided by the EXECUTIVE MARKETING ASSISTANT including discussion about the assessment, treatment and plan. Briefly, 83 year old female w/ history of HTN, hypothyroidism, hyperlipidemia s/p CCY years ago admitted with LLQ pain, nausea/vomiting and elevated transaminases and tb 5.3. CT and MR imaging with CBD dilation of 1.5 cm without apparent mass/stone/lesion. Interestingly, her LFTs are improving overnight with downtrending Tbili 5 --> 1 and she has been afebrile without leukocytosis with normal INR and normal mental status. I suspect she passed a cbd stone as mrcp is negative and she is improving. Lower in ddx: viral hep, autoimmune hep, dili. Suggest trend lfts to normal and f/up liver workup which has been sent. Advance diet to soft solids. History of Present Illness Reason for Consultation: abnormal LFTs Requesting Physician: Isidro Attending Physician: Christine Felix DO History of Present Illness 83 year old female with history of hypertension, TMJ dysfunction, hypothyroidism, hyperlipidemia, and history of cholecystectomy and appendectomy admitted through the ED w/ LLQ abd pain x 1 month and a week of nausea/vomiting - GI asked to evaluate. Pt was seen and evaluated, chart reviewed. She endorses a month of left lower abd pain, cramping. No change in bowel habits - denies diarrhea/constipation or black or bloody stools. A week ago she also developed nausea and bilious emesis. No black or bloody emesis. INR 1 Tbili 5 --> 1.8 AST 387 --> 180 ALT 461 --> 340 ALKP 428 -->333 Lipase 9 Hep A pending Hep B pending Hep C negative YOBANY/AMA/ASMA pending MRCP 2023: Biliary dilatation in the setting of cholecystectomy without visible choledocholithiasis or obstructing mass. Consider ERCP for further characterization. CTAP 2023: Liver: Unremarkable. No focal lesions are seen.Gallbladder and biliary tree: Patient is status post cholecystectomy. Physiologic prominence of the biliary ducts is noted. Pancreas: Unremarkable, no focal lesions. EGD: none Colonoscopy: none Allergies Allergy/AdvReac Type Severity Reaction Status Date / Time acetaminophen Allergy Unknown Unknown Verified 06/03/24 18:29 codeine Allergy Unknown Unknown Verified 06/03/24 18:29 cyclobenzaprine Allergy Unknown Unknown Verified 06/03/24 18:29 diazepam Allergy Unknown Unknown Verified 06/03/24 18:29 Opioids - Morphine Analogues Allergy Unknown Unknown Verified 06/03/24 18:29 oxycodone Allergy Unknown Unknown Verified 06/03/24 18:29 propoxyphene Allergy Unknown Unknown Verified 06/03/24 18:29 Home Medications Medication Instructions Recorded Confirmed Type cholecalciferol (vitamin D3) 50 2,000 units PO DAILY #30 caps 05/13/19 06/03/24 Rx mcg (2,000 unit) capsule hydrochlorothiazide 12.5 mg tablet 12.5 mg PO DAILY #90 tabs 07/13/23 06/03/24 Rx lisinopril 20 mg tablet 20 mg PO DAILY #90 tabs 07/13/23 06/03/24 Rx morphine 15 mg tablet,extended 15 mg PO HS PRN severe pain #90 05/08/24 06/03/24 Rx release tabs levothyroxine 75 mcg tablet 75 mcg PO DAILY #30 tabs 05/23/24 06/03/24 Rx atorvastatin 40 mg tablet 40 mg PO DAILY 06/03/24 06/03/24 History hydroxyzine pamoate 50 mg capsule 50 mg PO HS 06/03/24 06/03/24 History meprobamate 400 mg tablet 400 mg PO .Q4-6XDAY PRN pain 06/03/24 06/03/24 History oxazepam 10 mg capsule 10 mg PO .Q4-6XDAY PRN TMJ 06/03/24 06/03/24 History Patient History Medical History Elevated blood sugar level HTN (hypertension) Hyperlipidemia Hypothyroidism No pertinent family history Temporomandibular joint dysfunction syndrome TMJ (dislocation of temporomandibular joint) Vitamin D deficiency Surgical History H/O oophorectomy History of mandibular surgery Family History Mother Hypertension Denies family history of Ovarian cancer Prostate cancer Diabetes Myocardial infarction Breast cancer Colorectal cancer Social History Smoking Status: Never smoker Second Hand Exposure: No; Do You Dip or Chew Tobacco: No; Tobacco Cessation Education Requested by Patient: No Hx Alcohol Use: No Hx Substance Use: No Preferred Language: Liberian Communication Ability: Effective Visual Impairment: No Limitations Hearing Ability: Normal Health And Safety Tech Required: No Beliefs That Will Affect Care: None marital status: Current Living Situation: Spouse current occupational status: retired How many Children do You have: 3 Other Information That Helps Us Care for You: No Feels Safe at Home: Yes Safety Concerns: Feels Safe At This Time Childhood Exposure to Second-Hand Smoke: Yes Diet: regular caffeine: Yes (coffee) Physical Activity Frequency: 1-2 Times per Week Seatbelt Use: sometimes Sunscreen Use: No Assistive Devices: Glasses, Hospital Bed and Walker Review of Systems Review of Systems: All other findings negative except as noted in HPI. Physical Exam Constitutional: WD/WN, vitals as above Respiratory: normal respiratory effort, lungs clear to auscultation Cardiovascular: Rate/Rhythm: regular rate and regular rhythm Gastrointestinal (Abdomen): normal bowel sounds, soft, nontender, no hepatosplenomegaly Skin: no rashes, warm and dry Results & Data Vital Signs (Past 12 Hours) Vital Signs Temp Pulse Pulse Resp BP BP Pulse Ox 06/04/24 07:30 06/04/24 07:25 36.8 C 51 L 16 127/71 96 06/04/24 01:20 96 06/04/24 01:20 06/04/24 01:20 06/04/24 01:20 36.7 C 60 16 145/75 H 96 06/04/24 01:20 06/03/24 23:51 57 L 06/03/24 23:00 140/73 06/03/24 23:00 140/73 06/03/24 23:00 140/73 06/03/24 23:00 58 L 26 H 06/03/24 22:30 163/85 H 06/03/24 22:21 59 L 29 H 93 Pulse Ox O2 Del Method O2 Del Method 06/04/24 07:30 Room Air 06/04/24 07:25 Room Air 06/04/24 01:20 Room Air 06/04/24 01:20 Room Air 06/04/24 01:20 96 Room Air 06/04/24 01:20 Room Air 06/04/24 01:20 Room Air 06/03/24 23:51 06/03/24 23:00 06/03/24 23:00 06/03/24 23:00 06/03/24 23:00 06/03/24 22:30 06/03/24 22:21 Laboratory Results 06/04/24 06/03/24 06/03/24 Range/Units 05:52 22:44 16:47 WBC 7.49 (4.8-10.8) K/ul RBC 4.25 (4.20-5.40) M/uL Hgb 13.0 (12.0-16.0) g/dl Hct 38.0 (37.0-47.0) % MCV 89.4 (80.0-100.0) fL MCH 30.6 (25.0-34.0) pg MCHC 34.2 (32.0-36.0) g/dL RDW Std Deviation 41.3 (36.4-46.3) fL RDW Coeff of Mj 12.5 (11.5-14.5) % Plt Count 183 (130-400) K/uL MPV 9.9 (9.4-12.4) fL Immature Gran % (Auto) 0.4 % Neut % (Auto) 81.6 % Lymph % (Auto) 9.7 % [place] % (Auto) 7.9 % Eos % (Auto) 0.1 % Baso % (Auto) 0.3 % Neut # (Auto) 6.11 (1.40-6.50) K/uL Lymph # (Auto) 0.73 L (1.20-3.40) K/uL [place] # (Auto) 0.59 (0.11-0.59) K/uL Eos # (Auto) 0.01 (0.00-0.50) K/uL Baso # (Auto) 0.02 (0.00-0.20) K/uL Immature Gran # (Auto) 0.03 (0.01-0.20) K/uL ESR 8 (0-30) mm/hr PT (9.0-12.0) Seconds INR (0.9-1.1) Sodium 141 (136-145) mmol/L Potassium 3.6 (3.5-5.1) mmol/L Chloride 105 (98-107) mmol/L Carbon Dioxide 28 (21-32) mmol/L Anion Gap 8 (3-11) BUN 17 (6-23) mg/dl Creatinine 0.92 (0.6-1.2) mg/dl Est Cr Clr Drug Dosing 39.3 ml/min Est GFR ( Amer) 67.7 ml/min Est GFR (Non-Af Amer) 58.4 ml/min BUN/Creatinine Ratio 18.5 (10-20) Glucose 100 H (70-99(Fasting)) mg/dl Calcium 8.5 L (8.6-10.3) mg/dl Total Bilirubin 1.8 H D (0.2-1.0) mg/dl Direct Bilirubin 0.6 H (0-0.2) mg/dl AST 180 H (13-39) U/L ALT 340 H (7-52) U/L Alkaline Phosphatase 333 H (34-104) U/L C-Reactive Protein < 0.50 (0-0.5) mg/dl Total Protein 6.2 D (6.0-8.3) gm/dl Albumin 3.6 (3.4-5.0) gm/dl Globulin 2.6 (2.5-4.0) gm/dl Albumin/Globulin Ratio 1.4 (0.9-2) Lipase (11-82) U/L Urine Color Dark Yellow Urine Appearance Clear (Clear) Urine pH 5.5 (4.5-7.5) Ur Specific Royal 1.026 (1.000-1.030) Urine Protein 2+ H (Negative) Urine Glucose (UA) Negative (Negative) Urine Ketones Negative (Negative) Urine Blood Trace H (Negative) Urine Nitrite Negative (Negative) Urine Bilirubin 2+ H (Negative) Urine Urobilinogen Negative (Negative) Ur Leukocyte Esterase Trace H (Negative) Urine WBC (Auto) 0-5 (0-5) /hpf Urine RBC (Auto) 3-5 H (0-2) /hpf U Hyaline Cast (Auto) 0-2 (0-2) /lpf U Epithel Cells (Auto) 6-10 H (0-2) /hpf Urine Bacteria (Auto) 2+ H (None Seen) YOBANY Screen Pending Anti-Mitochondrial Ab Pending Anti-Smooth Muscle Ab Pending Hepatitis A IgM Ab Pending Hep Bs Antigen Negative (Negative) Hep B Core IgM Ab Pending Hepatitis C Antibody Negative (Negative) 06/03/24 Range/Units 16:33 WBC 9.08 (4.8-10.8) K/ul RBC 4.88 (4.20-5.40) M/uL Hgb 15.1 (12.0-16.0) g/dl Hct 43.2 (37.0-47.0) % MCV 88.5 (80.0-100.0) fL MCH 30.9 (25.0-34.0) pg MCHC 35.0 (32.0-36.0) g/dL RDW Std Deviation 41.0 (36.4-46.3) fL RDW Coeff of Mj 12.7 (11.5-14.5) % Plt Count 223 (130-400) K/uL MPV 9.8 (9.4-12.4) fL Immature Gran % (Auto) 0.3 % Neut % (Auto) 82.9 % Lymph % (Auto) 8.9 % [place] % (Auto) 7.7 % Eos % (Auto) 0.0 % Baso % (Auto) 0.2 % Neut # (Auto) 7.52 H (1.40-6.50) K/uL Lymph # (Auto) 0.81 L (1.20-3.40) K/uL [place] # (Auto) 0.70 H (0.11-0.59) K/uL Eos # (Auto) 0.00 (0.00-0.50) K/uL Baso # (Auto) 0.02 (0.00-0.20) K/uL Immature Gran # (Auto) 0.03 (0.01-0.20) K/uL ESR (0-30) mm/hr PT 10.9 (9.0-12.0) Seconds INR 1.0 (0.9-1.1) Sodium 140 (136-145) mmol/L Potassium 3.3 L (3.5-5.1) mmol/L Chloride 100 (98-107) mmol/L Carbon Dioxide 28 (21-32) mmol/L Anion Gap 12 H (3-11) BUN 17 (6-23) mg/dl Creatinine 1.00 (0.6-1.2) mg/dl Est Cr Clr Drug Dosing 37.1 ml/min Est GFR ( Amer) 61.2 ml/min Est GFR (Non-Af Amer) 52.8 ml/min BUN/Creatinine Ratio 17.0 (10-20) Glucose 128 H (70-99(Fasting)) mg/dl Calcium 9.8 (8.6-10.3) mg/dl Total Bilirubin 5.0 H (0.2-1.0) mg/dl Direct Bilirubin (0-0.2) mg/dl AST 387 H (13-39) U/L ALT 461 H (7-52) U/L Alkaline Phosphatase 428 H (34-104) U/L C-Reactive Protein (0-0.5) mg/dl Total Protein 8.4 H (6.0-8.3) gm/dl Albumin 4.8 (3.4-5.0) gm/dl Globulin 3.6 (2.5-4.0) gm/dl Albumin/Globulin Ratio 1.3 (0.9-2) Lipase 9 L (11-82) U/L Urine Color Urine Appearance (Clear) Urine pH (4.5-7.5) Ur Specific Royal (1.000-1.030) Urine Protein (Negative) Urine Glucose (UA) (Negative) Urine Ketones (Negative) Urine Blood (Negative) Urine Nitrite (Negative) Urine Bilirubin (Negative) Urine Urobilinogen (Negative) Ur Leukocyte Esterase (Negative) Urine WBC (Auto) (0-5) /hpf Urine RBC (Auto) (0-2) /hpf U Hyaline Cast (Auto) (0-2) /lpf U Epithel Cells (Auto) (0-2) /hpf Urine Bacteria (Auto) (None Seen) YOBANY Screen Anti-Mitochondrial Ab Anti-Smooth Muscle Ab Hepatitis A IgM Ab Hep Bs Antigen (Negative) Hep B Core IgM Ab Hepatitis C Antibody (Negative) PG Care Time/CCT Total # of Minutes Spent Total Time Spent with Patient: Total time spent is greater than 50% in coordination of care (as documented) at patient's floor/unit and/or counseling patient: Coding Level of Care Code 23391 INT INP/OBS CARE 3/75MIN Diagnoses Elevated bilirubin R17
[2024-06-04] MEDS: PANTOprazole 40 MG in SYRINGE 0 ML IV SCH (11:54)
[2024-06-04] MEDS: LORazepam 0.5 MG TAB PO PRN (13:11)
--- NOTE | 2024-06-04 14:30 | Hospitalist Progress Note ---
Date of Service June 04, 2024 Assessment & Plan (1) HTN (hypertension): (2) Vomiting: (3) Transaminitis: (4) Hypothyroidism: (5) Hyperlipidemia: Plan Marisol is an 83-year-old female with past medical history of hypertension, TMJ dysfunction, hypothyroidism, hyperlipidemia, and history of cholecystectomy and appendectomy who was admitted due to abdominal pain with associated nausea and vomiting that has limited p.o. intake. Abdominal pain //abnormal LFTs -LFTs improving -Autoimmune/hepatitis labs pending -MRCP without evidence of choledocholithiasis however did show dilation of intrahepatic and extrahepatic bile ducts with the common bile duct measuring up to 1.5 cm. -Will treat supportively with IV fluids, Zofran, and Tylenol for pain control -GI consulted advance diet as tolerated rest as above Asymptomatic UTI -UA showing positive leukocyte esterase Hypertension Pt w/ episodes of HTN since admission Will restart home HCTZ and lisinopril Hypothyroidism levothyroxine 75 mcg Hyperlipidemia hold atorvastatin due to current transaminitis [facility] 100[facility]/hr Diet: Advance as tolerated VTE ppx: Lovenox Code Status: Full Admission and Anticipated Discharge Date Admission Date: June 03, 2024 Supervising Physician Co-Signing Physician Notes I personally examined the patient and verified thornton points of history and exam, discussed case, and agree with decision making and plan documented by Dr. Gilliland. Patient with marked improvement of transaminases, bilirubin, and alk phos with fluids. She reported that she had decreased appetite and naus ea/vomiting for 4 days prior to her admission. She is advancing her diet. YOBANY, antimicrobial AB and anti-smooth muscle AB pending in addition to completion of hepatitis panel. Subjective Patient seen and evaluated at bedside this morning. No acute events overnight. States her abdominal pain is improving. Is moving bowels and urinating appropri ately. Seen by GI who recommend to advance diet as tolerated. Majority of complaints were in regards to her chronic TMJ dysfunction for which she takes pain medication. Otherwise, no acute complaints this am. VSS. Transaminases trending down. Review of Systems Review of Systems: reviewed, per HPI Physical Exam Physical Exam: Constitutional: age appropriate, overall well-appearing, no acute distress HEENT: NCAT, no conjunctival injection CV: regular rhythm, no murmur appreciated, extremities well-perfused, no LE edema Resp: CTABL, no wheezes/rales/rhonchi appreciated, no increased work of breathing GI: soft, nondistended, nontender, BS normoactive MSK: no gross deformities appreciated Skin: warm, dry, no rash appreciated Neuro: alert, oriented, no focal neurologic deficit appreciated Results & Data Results & Data Vital Signs (Past 12 Hours) Vital Signs Temp Pulse Resp BP Pulse Ox O2 Del Method 06/04/24 07:30 Room Air 06/04/24 07:25 36.8 C 51 L 16 127/71 96 Room Air Resident Activity Tracking Resident Involvement: Resident Care Provided Care Provided: Adult Hospital Medicine (1) HTN (hypertension) Hypertension type: unspecified Qualified Code(s): I10 - Essential (primary) hypertension (2) Vomiting Nausea presence: unspecified Vomiting type: unspecified Qualified Code(s): R11.10 - Vomiting, unspecified (4) Hypothyroidism Hypothyroidism type: acquired Qualified Code(s): E03.9 - Hypothyroidism, unspecified (5) Hyperlipidemia Hyperlipidemia type: mixed hyperlipidemia Qualified Code(s): E78.2 - Mixed hyperlipidemia
--- NOTE | 2024-06-04 15:32 | Electrocardiogram Report ---
Test Reason : Blood Pressure : */* mmHG Vent. Rate : 66 BPM Atrial Rate : 66 BPM P-R Int : 150 ms QRS Dur : 98 ms QT Int : 404 ms P-R-T Axes : 97 -24 88 degrees QTcB Int : 423 ms Normal sinus rhythm possible Inferior infarct , age undetermined Abnormal ECG When compared with ECG of 29-Jan-2019 06:53, Aberrant conduction is no longer Present Inverted T waves have replaced nonspecific T wave abnormality in Inferior leads Nonspecific T wave abnormality has replaced inverted T waves in Lateral leads QT has shortened Confirmed by Grey Cheema ([id number]) on 06/04/2024 3:31:46 PM Referred By: REFERRED SELF Confirmed By: Grey Cheema
[2024-06-04] MEDS: LISINOPRIL/HCTZ 20/12.5MG 1 TAB TAB PO SCH (18:25)
[2024-06-04] MEDS: hydrOXYzine HCl 25 MG TAB PO SCH (20:36)
[2024-06-04] MEDS: MoRPHine SULFATE CR 15 MG TABCR PO PRN (20:37)
[2024-06-04] MEDS ORDERED: Nursing to Pharmacy Communication SCH (21:15)
[2024-06-05] MEDS: KETOROLAC TROMETHAMINE 15 MG/ML VIAL IV ONE ×2 (02:21→14:50)
[2024-06-05 07:27] VITALS: RESP 16
[2024-06-05 08:05] LABS: Basophils # (auto) 0.01 K/uL (0.00-0.20); Basophils % (auto) 0.2 %; Eosinophils # (auto) 0.05 K/uL (0.00-0.50); Eosinophils % (auto) 1.1 %; Hematocrit (blood only) 39.2 % (37.0-47.0); Hemoglobin 13.1 g/dl (12.0-16.0); Immature Granulocytes # (auto) 0.02 K/uL (0.01-0.20); Immature Granulocytes % (auto) 0.4 %; Lymphocytes # (auto) 0.89 K/uL (1.20-3.40); Lymphocytes % (auto) 19.3 %; Mean Corpuscular Hemoglobin 30.6 pg (25.0-34.0); Mean Corpuscular Hgb Conc 33.4 g/dL (32.0-36.0); Mean Corpuscular Volume 91.6 fL (80.0-100.0); Mean Platelet Volume 9.7 fL (9.4-12.4); Monocytes % (auto) 10.8 %; Neutrophils # (auto) 3.14 K/uL (1.40-6.50); Neutrophils % (auto) 68.2 %; Platelet Count 144 K/uL (130-400); RDW Coefficient of Variation 12.7 % (11.5-14.5); RDW Standard Deviation 41.9 fL (36.4-46.3); Red Blood Count 4.28 M/uL (4.20-5.40); White Blood Count 4.61 K/ul (4.8-10.8)
[2024-06-05 08:28] LABS: Albumin Level 3.2 gm/dl (3.4-5.0); Bilirubin,Total 1.1 mg/dl (0.2-1.0); Calcium 8.2 mg/dl (8.6-10.3); Potassium 3.3 mmol/L (3.5-5.1)
[2024-06-05 08:34] LABS: Albumin Globulin Ratio 1.3 (0.9-2); BUN Creatinine Ratio 18.4 (10-20); Creatinine Clr Calc Pharmacy 36.9 ml/min; Est GFR (African American) 62.7 ml/min; Est GFR (Non-African American) 54.1 ml/min; Globulin 2.4 gm/dl (2.5-4.0); Total Protein 5.6 gm/dl (6.0-8.3)
[2024-06-05] MEDS: POTASSIUM CHLORIDE CRTAB 20 MEQ TABCR PO STA (09:04)
[2024-06-05 14:07] LABS: Hepatitis A Antibody IgM NON-REACTIVE (NON-REACTIVE); Hepatitis B Core Antibody IgM NON-REACTIVE (NON-REACTIVE)
[2024-06-05 14:53] LABS: Anti Mitochondrial Antibody NEGATIVE (NEGATIVE); Anti Nuclear Antibody Screen NEGATIVE (NEGATIVE); Smooth Muscle Antibody NEGATIVE (NEGATIVE)
[2024-06-05 15:14] VITALS: BP 179/65; PULSE 60; TEMP 97.9
[2024-06-05 15:37] VITALS: O2SAT 95
--- NOTE | 2024-06-05 16:30 | Discharge Summary ---
Date of Service June 05, 2024 Admission HPI Per Admitting Provider Marisol is a 83 y/o F who comes to the ED due to RUQ pain and left flank pain that began on Sunday (05/31/24). She had similar pain around 3 weeks ago, which resolved spontaneously. The same pain returned on 05/31/24 and was more marked in lower abdomen, RUQ and left flank. Associated sxs are nausea and bilious non- bloody vomiting. Due to nausea, has not been able to eat or drink much and was not able to take her antihypertensives this morning. No changes in bm, which have remained non-bloody. Patient states she has had the same symptoms on previous occasions over the last 3 years, one of which brought her to the ED. Denies any recent travel or sick contacts. Denies alcohol use or subtance use. Denies having fevers, chills, weakness, chest pain, SOB, or any other sxs. ED Course: Given Toradol 10 mg x1, Reglan 5 mg x1, Zofran 4 mg x1, NSS 1L bolus x2, Hydralazine 10 mg due to BP reaching ~220 systolic (asymptomatic) Labs/Imaging: CBC w/o leukocytosis but showing mild neutrophilia, hgb of 15.1, platelets wnl. CMP with mild hypokalemia (3.3) and no other electrolyte abnormalities, renal function wnl (Cr of 1). LFTs with AST of 387 and ALT 461, alk phos of 428, T.bili of 5. Normal lipase. U/A with possible UTI. Medical History: [Reviewed] Medications: [Reviewed] Surgical History: [Reviewed] Family history: [Reviewed] Allergies: [Reviewed] Social History: [Reviewed] Admission Exam Per Admitting Provider GENERAL: AAOx3, afebrile, NAD HEAD: AT and NC EYES: EOM intact, ALFONZO, no scleral icterus CHEST: symmetrical chest expansions w/ respirations CARDIO: RRR, murmur in right sternal border, no rubs or gallops PULMONARY: CTA, normal respiratory effort, no respiratory distress GI: soft, non-distended, mild tenderness with palpation of left CVA that is not the same pain she has been experiencing, no pain on palpation of RUQ or other abdominal regions, no suprapubic tenderness EXTREMITIES: no swelling or calf tenderness in b/l LE SKIN: no rashes, warm, dry Principal Diagnosis Choledocholithiasis Discharge Exam Constitutional: age appropriate, overall well-appearing, no acute distress HEENT: NCAT, no conjunctival injection CV: regular rhythm, no murmur appreciated, extremities well-perfused, no LE edema Resp: CTABL, no wheezes/rales/rhonchi appreciated, no increased work of breathing GI: soft, nondistended, nontender, BS normoactive MSK: no gross deformities appreciated Skin: warm, dry, no rash appreciated Neuro: alert, oriented, no focal neurologic deficit appreciated Discharge Data Allergies Allergy/AdvReac Type Severity Reaction Status Date / Time acetaminophen Allergy Unknown Unknown Verified 06/03/24 18:29 codeine Allergy Unknown Unknown Verified 06/03/24 18:29 cyclobenzaprine Allergy Unknown Unknown Verified 06/03/24 18:29 diazepam Allergy Unknown Unknown Verified 06/03/24 18:29 Opioids - Morphine Analogues Allergy Unknown Unknown Verified 06/03/24 18:29 oxycodone Allergy Unknown Unknown Verified 06/03/24 18:29 propoxyphene Allergy Unknown Unknown Verified 06/03/24 18:29 Consultations 06/03/24 18:51 ED Decision to Admit Stat 06/04/24 01:23 Consult Gastroenterology Routine Ordered Studies 06/03/24 16:02 CT abd pelvis IV con only Stat 06/03/24 19:09 MR MRCP Stat Hospital Course (1) HTN (hypertension): (2) Vomiting: (3) Transaminitis: (4) Hypothyroidism: (5) Hyperlipidemia: Alexis Damon is an 83-year-old female with past medical history of hypertension, TMJ dysfunction, hypothyroidism, hyperlipidemia, and history of cholecystectomy and appendectomy who was admitted due to abdominal pain with associated nausea and vomiting that has limited p.o. intake. Abdominal pain //abnormal LFTs -LFTs improving -Hepatitis labs negative -Autoimmune labs pending -MRCP without evidence of choledocholithiasis however did show dilation of intrahepatic and extrahepatic bile ducts with the common bile duct measuring up to 1.5 cm. -Treatment was supportive with IV fluids, Zofran, and Tylenol for pain control -GI consulted advance diet as tolerated rest as above Asymptomatic Bacteriuria -UA showing positive leukocyte esterase -No treatment Hypertension Pt w/ episodes of HTN since admission Will restart home HCTZ and lisinopril Appears in records patient is also to be on amlodipine, however none of these scripts appear to be filled since 2022 Will provide refills Strongly urged patient to follow up closely with PCP Hypothyroidism levothyroxine 75 mcg Hyperlipidemia hold atorvastatin due to current transaminitis, restart at discharge Total Time Total Time Spent Total Time Spent (In Minutes): 32 Total Time Includes: Examination of the Patient, Discharge Planning, Medication Reconciliation and Communication With Other Providers Discharge Plan Discharge Items Patient Disposition: Home - Self-Care Reason For Visit: ABD PAIN Discharge Diagnosis: Abdominal pain, choledocholithiasis, Activity: Resume your previous activity Activity Comment: As tolerated Non-emergency contact: Primary Care Provider Call non-emergency contact if: you have any medication questions and your pain is worsening Follow-up/Referrals: Mary Mckeon MD [Primary Care Provider] - 06/13/24 8:00 am Diet: Heart Healthy Addtl Attending Provider Instructions: You were admitted to the hospital for abdominal pain. You were found to have elevated liver enzymes. You were treated with pain medication and fluids. We believe you had a condition known as choledocholithiasis. This is a condition where a stone forms in the tube that connects your liver to your intestine. These stones can form in the absence of a gallbladder. This causes a backup of bile. Because your condition improved quickly, we believe this stone passed on its own and your liver enzymes began to improve. You should have repeat testing of these liver enzymes within one week. Please contact your primary care provider to arrange this testing early next week. While you were hospitalized your blood pressure was elevated. In your home medications you were listed as taking lisinopril 20mg and hydrochlorothiazide (HCTZ) 12.5mg daily. In reviewing your records prior to discharge, it appears that you were also to be taking amlodipine 5mg daily. Refills for all of these medications will be provided at discharge to ensure you have adequate supply until your follow up with your PCP. A discharge summary will be sent to your primary care physician to ensure continuity of care. Please bring this discharge summary with you to your next office appointment so that your provider can review it at that time. Follow-up appointments: Make a follow-up appointment with your PCP within the next week. It is very important that you follow up with them shortly after discharge from the hospital. Keep all your follow-up appointments as already scheduled. If you cannot make an appointment, notify your provider. Medications: Your medication list has been reviewed and reconciled upon discharge to ensure accuracy and continuity of care. An updated list of all your medications is incl uded with your hospital discharge paperwork. Please review this list closely, and make note of any changes. If you have any issues filling these prescriptions, please call [phone] and ask to leave a message for Dr. Sy Gilliland. Take your medications as instructed; do not skip a dose of your medicines. Make sure all of your doctors know every medicine you are taking (including over-the- counter medicines, vitamins, and supplements). Call your primary care provider before taking any new medicines (including [id number] medicines, vitamins, and supplements), because some of these may interact with your current medications, or may make your symptoms worse. Tell your primary care provider if you cannot afford your medications. CONTACT YOUR PRIMARY CARE PROVIDER if you experience any of the following: Increased abdominal pain Changes in your bowel habits Return of nausea and vomiting Difficulty following your treatment plan, or difficulty taking medications CALL 911 OR GO TO THE EMERGENCY DEPARTMENT if you experience any of the following: Sudden, severe abdominal pain or nausea/vomiting Severe chest pain, or chest pain that radiates (moves) to your jaw or arm Sudden, severe shortness of breath or difficulty breathing Thank you for allowing us to participate in your care. Pending Studies at Discharge: Yes Studies:: Rheumatologic studies Stand-Alone Forms: [facility] Chartboost, Smoking Cessation Medications and DC Order Prescriptions: New amlodipine 5 mg tablet 5 mg PO DAILY Qty: 90 1RF Continued morphine 15 mg tablet extended release 15 mg PO HS PRN (Reason: severe pain) Qty: 90 0RF levothyroxine 75 mcg tablet 75 mcg PO DAILY Qty: 30 2RF cholecalciferol (vitamin D3) 2,000 unit capsule 2,000 units PO DAILY Qty: 30 0RF atorvastatin 40 mg tablet 40 mg PO DAILY Rx Instructions: PER EXT MED HX --LAST FILLED 01/17/24 FOR 90 TABS oxazepam 10 mg capsule 10 mg PO .Q4-6XDAY PRN (Reason: TMJ) meprobamate 400 mg tablet 400 mg PO .Q4-6XDAY PRN (Reason: pain) hydroxyzine pamoate 50 mg capsule 50 mg PO HS Rx Instructions: PER EXT MED LIST-- CAN BE TAKEN Q4H. lisinopril 20 mg tablet 20 mg PO DAILY Qty: 90 1RF Rx Instructions: PER EXT MED HX--LAST FILLED 07/13/23 FOR 90 TABS. hydrochlorothiazide 12.5 mg tablet 12.5 mg PO DAILY Qty: 90 1RF Rx Instructions: PER EXT MED HX--LAST FILLED 07/13/23 FOR 90 TABS. Discharge Orders: Discharge Order (Routine); Ordered 06/05/24 Ordered By: Sy Gilliland Admission Data Admit Date/Time: 06/03/24 23:02 Attending Provider: Christine Felix Admit Provider: Dana Gomez Primary Care Provider: Mary Mckeon Other Providers: Darío Lechuga; Kan Santana Other Interventions: Discharge Summary Assessment (RN) Last Done: 06/05/24 16:43 Supervising Physician Co-Signing Physician Notes I personally examined the patient and verified thornton points of history and exam, discussed case, and agree with decision making and plan documented by Dr. Gilliland. Patient with improvement of transaminases, bilirubin, and alk phos with fluids. she was able to advance her diet successfully. YOBANY, antimicrobial AB and anti-smooth muscle AB pending on discharge. Blood pressure was elevated throughout hospitalization, it is unclear if patient has been taking her blood pressure medications as prescribed. At present, regimen includes lisinopril 20 mg daily, hydrochlorothiazide 12.5 mg daily, and amlodipine 5 mg daily. She was advised to monitor home blood pressures, she will follow-up closely with her PCP. Recommend rechecking liver function testing in 1 week. Resident Activity Tracking Resident Involvement: Resident Care Provided Care Provided: Adult Hospital Medicine
== END 2024-06-05 17:34 | disposition home or self-care (01) | DRG 446 ==
LOC: ED 15:21 → 3N 23:02 → SUATTDRO 23:02 → 3N 06-04 00:58
DX: E03.9 Hypothyroidism, unspecified; Z90.49 Acquired absence of other specified parts of digestive tract; R82.71 Bacteriuria; K80.50 Calculus of bile duct without cholangitis or cholecystitis without obstruction; Z88.8 Allergy status to other drugs, medicaments and biological substances; Z79.890 Hormone replacement therapy; Z79.899 Other long term (current) drug therapy; Z88.5 Allergy status to narcotic agent; R74.01 Elevation of levels of liver transaminase levels; E78.5 Hyperlipidemia, unspecified; I10 Essential (primary) hypertension; E87.6 Hypokalemia; Z88.6 Allergy status to analgesic agent

== ENCOUNTER 2025-03-03 17:30 | Inpatient (IN) ==
--- NOTE | 2025-03-03 17:52 | Emergency Department Note ---
Impression & Plan Colitis, Bloody diarrhea ED Provider Note Provider: Nela Zimmerman MD CHIEF COMPLAINT: Nausea, diarrhea, weak abdominal pain HISTORY OF PRESENT ILLNESS: Patient is a 84-year-old female past medical history of hypertension and hypothyroidism presenting here today stating she is doing okay yesterday and then today awoke and developed nausea and significant nonbloody diarrhea. Reports pain in her abdomen particular the left lower abdomen. Denies any falls or trauma. No medications at home by her report. States she lives at home with her sister but she has not been around her 's currently undergoing therapy not at home. No fevers reported. Patient reports she had something similar to this maybe a year ago or so but they did not figure it out but it did get better. PAST MEDICAL HISTORY: As noted above MEDICATIONS: Reviewed home medications SOCIAL HISTORY: PHYSICAL EXAM: GENERAL: alert and oriented in no acute distress on stretcher, holding emesis bag Head: normocephalic and atraumatic EYES: No injection, discharge or icterus. NECK: Trachea midline. ENT: Mucous membranes pink and moist. LUNGS: Airway patent. No retractions or tachypnea HEART: Regular rate and rhythm. No chest wall tenderness ABDOMEN: Soft but diffuse abdominal pain particular in the left lower quadrant. SKIN: Acyanotic, warm, dry, without rashes EXTREMITIES: Without swelling, tenderness or deformity NEUROLOGICAL: No focal deficits moving all extremities. No aphasia. No facial droop or slurred speech. EK bpm. Normal sinus rhythm. No PVC or PAC. But is not refract but no clear acute ST segment elevation or depression with QTc of 425. CONTINUOUS CARDIAC MONITORING: was ordered and showed a heart rate of bpm in Patient's laboratory studies and imaging reviewed. Differential includes Gastroenteritis, food borne illness, infections, appendicitis, diverticulitis, inflammatory bowel disease, obstruction, GI bleed, biliary pathology, volvulus, as well as other pathologies. IMPRESSION/MEDICAL DECISION MAKING: Patient appears uncomfortable with nausea and significant prickly left lower quadrant abdominal pain. Blood work sent here we will obtain a CT scan. Stool studies ordered but no recent significant travel or antibiotics reported. Given some IV fluid, Zofran for nausea and hydration. Patient with multiple allergies to Tylenol and narcotics so we will try to avoid. Blood work with significant leukocytosis of 36 which is new. Bit of an JOHANNA creatinine 1.5 today and again given IV fluids1 L normal saline ordered. Magnesium just slightly low and a gram of IV supplementation ordered. No transaminitis or elevated troponin. TSH normal. Negative COVID flu RSV. CT abdomen pelvis per radiology report shows pancolitis most prominently of the left colon with fluid about this area as well as some free fluid. There is no reported pneumoperitoneum. Patient has a large amount of bloody liquid stool obtained here. Given additional Zofran for nausea and vomiting. Recommend we bring her in for further care and evaluation here. Stool and C. difficile testing has been sent. Discussed with her further care at the hospital and the hospitalist team was consulted. She is agreeable to this and her nausea and pain have improved some here. Does not seem to have significant initial GI bleed as hemoglobin is stable but will be monitored. C. difficile would be important to exclude given the leukocytosis and the colitis findings. C. difficile testing does return negative. Stool PCR returns negative. Will defer any antibiotics to the admitting team. DIAGNOSIS: Bloody diarrhea/colitis DISPOSITION: Hospitalist will evaluate Patient was agreeable with this plan. Past Med/Surg History Problem List (Updated 03/03/25 @ 21:30 by Neal Zimmerman M.D.) Bloody diarrhea (Acute) Colitis (Acute) HTN (hypertension) (Acute) Elevated bilirubin (Acute) Transaminitis (Acute) Impacted cerumen of both ears Routine health maintenance (Chronic) Vitamin D deficiency (Chronic) Temporomandibular joint dysfunction syndrome (Chronic) Hypothyroidism (Chronic) Hyperlipidemia (Chronic) Elevated blood sugar level (Acute) History of mandibular surgery No pertinent family history HTN (hypertension) TMJ (dislocation of temporomandibular joint) Medical History Vomiting Abdominal pain Surgical History H/O oophorectomy Family History Mother Hypertension Denies family history of Ovarian cancer Prostate cancer Diabetes Myocardial infarction Breast cancer Colorectal cancer Social History Smoking Status: Never smoker Second Hand Exposure: Yes (As a child. ); Do You Dip or Chew Tobacco: No; Hx Alcohol Use: No Hx Substance Use: No Preferred Language: Micronesian Communication Ability: Effective Visual Impairment: Limited Hearing Ability: Normal [employer] Required: No Beliefs That Will Affect Care: None marital status: Current Living Situation: Spouse current occupational status: retired How many Children do You have: 3 Feels Safe at Home: Yes Childhood Exposure to Second-Hand Smoke: Yes Diet: regular caffeine: Yes (coffee) during the past year weight has: remained stable Dental Care, Regularly: No Physical Activity Frequency: 1-2 Times per Week Seatbelt Use: sometimes Sunscreen Use: No Do you think of yourself as: straight/heterosexual Sexual Activity: has been sexually active, but not for at least 12 months Gender Identity: Female Assistive Devices: Cane, Glasses and Walker Allergies Allergies Allergy/AdvReac Type Severity Reaction Status Date / Time acetaminophen Allergy Unknown Unknown Verified 03/03/25 19:12 codeine Allergy Unknown Unknown Verified 03/03/25 19:12 cyclobenzaprine Allergy Unknown Unknown Verified 03/03/25 19:12 Opioids - Morphine Analogues Allergy Unknown Unknown Verified 03/03/25 19:12 oxycodone Allergy Unknown Unknown Verified 03/03/25 19:12 propoxyphene Allergy Unknown Unknown Verified 03/03/25 19:12 Home Meds Home Medications Medication Instructions Recorded Confirmed hydroxyzine pamoate 50 mg capsule 50 mg PO Q4H 03/03/25 03/03/25 Previous Rx's Medication Instructions Recorded cholecalciferol (vitamin D3) 50 2,000 units PO DAILY #30 caps 05/13/19 mcg (2,000 unit) capsule atorvastatin 40 mg tablet 40 mg PO DAILY #90 tabs 08/25/24 amlodipine 5 mg tablet 5 mg PO DAILY #90 tabs 12/08/24 lisinopril 20 mg tablet 20 mg PO DAILY #90 tabs 12/08/24 diazepam 5 mg tablet 5 mg PO BID PRN anxiety #60 tabs 12/16/24 morphine 15 mg tablet,extended 15 mg PO HS PRN severe pain #90 01/20/25 release tabs levothyroxine 75 mcg tablet 75 mcg PO DAILY #90 tabs 02/04/25 meprobamate 400 mg tablet 400 mg PO .Q4-6XDAY PRN pain #60 02/09/25 tabs hydrochlorothiazide 12.5 mg tablet 12.5 mg PO DAILY #90 tabs 03/03/25 Results & Data (ED) Vital Signs Vital Signs - 24 hr 03/03/25 17:43 03/03/25 17:47 03/03/25 17:51 Temperature 36.4 C L Temperature Source Oral Pulse Rate 69 68 68 Pulse Rate [Apical] Pulse Rhythm Regular Pulse Rhythm [Apical] Respiratory Rate 16 16 Respiratory Effort / Characteristics Non-Labored Spontaneous Respiratory Depth Normal Respiratory Pattern Blood Pressure 167/80 H Blood Pressure [Left Arm] Blood Pressure Mean 109 Blood Pressure Mean [Left Arm] Pulse Oximetry 100 100 Oxygen Delivery Method Room Air Room Air Sepsis Recent Fever Within 48 Hours No Sepsis New/Unexplained Change in Mental Status No Sepsis Action Taken by Nursing No Action Required 03/03/25 20:07 Temperature Temperature Source Pulse Rate Pulse Rate [Apical] 73 Pulse Rhythm Pulse Rhythm [Apical] Regular Respiratory Rate 23 Respiratory Effort / Characteristics Respiratory Depth Respiratory Pattern Tachypnea Blood Pressure Blood Pressure [Left Arm] 161/63 H Blood Pressure Mean Blood Pressure Mean [Left Arm] 95 Pulse Oximetry 97 Oxygen Delivery Method Room Air Sepsis Recent Fever Within 48 Hours Sepsis New/Unexplained Change in Mental Status Sepsis Action Taken by Nursing Laboratory Data 03/03/25 17:40 03/03/25 17:40 Lab Results 03/03/25 03/03/25 03/03/25 Range/Units 17:40 19:48 Unknown WBC 36.52 H* (4.8-10.8) K/ul RBC 4.17 L (4.20-5.40) M/uL Hgb 13.3 (12.0-16.0) g/dl Hct 38.1 (37.0-47.0) % MCV 91.4 (80.0-100.0) fL MCH 31.9 (25.0-34.0) pg MCHC 34.9 (32.0-36.0) g/dL RDW Std Deviation 38.8 (36.4-46.3) fL RDW Coeff of Mj 11.5 (11.5-14.5) % Plt Count 245 (130-400) K/uL MPV 10.0 (9.4-12.4) fL Immature Gran % (Auto) 1.1 % Neut % (Auto) 93.1 % Lymph % (Auto) 0.9 % [place] % (Auto) 4.7 % Eos % (Auto) 0.0 % Baso % (Auto) 0.2 % Neut # (Auto) 33.97 H (1.40-6.50) K/uL Lymph # (Auto) 0.32 L (1.20-3.40) K/uL [place] # (Auto) 1.73 H (0.11-0.59) K/uL Eos # (Auto) 0.00 (0.00-0.50) K/uL Baso # (Auto) 0.09 (0.00-0.20) K/uL Immature Gran # (Auto) 0.41 H (0.01-0.20) K/uL Sodium 141 (136-145) mmol/L Potassium 4.2 (3.5-5.1) mmol/L Chloride 108 H (98-107) mmol/L Carbon Dioxide 24 (21-32) mmol/L Anion Gap 9 (3-11) BUN 47 H (6-23) mg/dl Creatinine 1.57 H (0.6-1.2) mg/dl Est Cr Clr Drug Dosing Not Reportable eGFR 32.74 BUN/Creatinine Ratio 29.9 H (10-20) Glucose 234 H (70-99(Fasting)) mg/dl Calcium 9.6 (8.6-10.3) mg/dl Magnesium 1.5 L (1.7-2.4) mg/dl Total Bilirubin 0.7 (0.2-1.0) mg/dl AST 24 (13-39) U/L ALT 17 (7-52) U/L Alkaline Phosphatase 98 (34-104) U/L Troponin I High Sens 13.8 (0-14) pg/ml Total Protein 7.4 (6.0-8.3) gm/dl Albumin 4.3 (3.4-5.0) gm/dl Globulin 3.1 (2.5-4.0) gm/dl Albumin/Globulin Ratio 1.4 (0.9-2) TSH 0.875 (0.300-4.500) uIu/ml Stl C. cayetanensis PCR Not Detected (NotDetected) Stool Rotavirus A PCR Not Detected (NotDetected) Stl Adenov F 40/41 PCR Not Detected (NotDetected) Stool Astrovirus (PCR) Not Detected (NotDetected) Stool Campylobacter PCR Not Detected (NotDetected) Stl C. diff Tox B Gene Negative Cdiff Gene (Neg) Stool Cryptosporidium PCR Not Detected (NotDetected) Stl E.coli Shiga Tox PCR Not Detected (NotDetected) Stl Enterotoxigenic E PCR Not Detected (NotDetected) Stool EPEC (PCR) Not Detected (NotDetected) Stool EAEC (PCR) Not Detected (NotDetected) Stl E. histolytica PCR Not Detected (NotDetected) Stool Giardia Lamblia PCR Not Detected (NotDetected) Stool Salmonella PCR Not Detected (NotDetected) Stool Sapovirus (PCR) Not Detected (NotDetected) Stl P. shigelloides PCR Not Detected (NotDetected) Stl Shigella/EIEC PCR Not Detected (NotDetected) St Y.enterocolitica PCR Not Detected (NotDetected) Stool Vibrio (PCR) Not Detected (NotDetected) Stl Vibrio cholerae PCR Not Detected (NotDetected) Stl Norovirus GI/GII PCR Not Detected (NotDetected) SARS-CoV-2 (PCR) NEGATIVE (Negative) Influenza Type A (PCR) Negative (Neg) Influenza Type B (PCR) Negative (Neg) RSV (RT-PCR) Negative (Neg) Administered Medications Discontinued Medications Sodium Chloride (Nss) 500 mls @ 999 mls/hr IV .Q31M ONE Stop: 03/03/25 18:21 Last Infusion: 03/03/25 19:41 Dose: Infused Documented By: Admin: 03/03/25 18:02 Dose: 999 mls/hr Documented By: BILL Magnesium Sulfate/Dextrose (Magnesium Sulfate / D5w) 1 gm in 100 mls @ 100 mls/hr IV NOW STA Stop: 03/03/25 19:27 Last Infusion: 03/03/25 21:13 Dose: Infused Documented By: Admin: 03/03/25 20:11 Dose: 100 mls/hr Documented By: V[place] Sodium Chloride (Nss) 500 mls @ 999 mls/hr IV .Q31M ONE Stop: 03/03/25 18:58 Last Infusion: 03/03/25 20:18 Dose: Infused Documented By: Admin: 03/03/25 19:35 Dose: 999 mls/hr Documented By: VRIGINIA Ioversol (Optiray 320 100ml) 90 ml IV ONCE ONE Stop: 03/03/25 18:40 Last Admin: 03/03/25 18:39 Dose: 90 ml Documented By: CANDELARIO Ondansetron HCl (Ondansetron Inj 2 Mg/Ml 2 Ml Vial) 4 mg IV NOW STA Stop: 03/03/25 17:52 Last Admin: 03/03/25 18:02 Dose: 4 mg Documented By: BILL Ondansetron HCl (Ondansetron Inj 2 Mg/Ml 2 Ml Vial) 4 mg IV NOW STA Stop: 03/03/25 20:04 Last Admin: 03/03/25 20:11 Dose: 4 mg Documented By: VIRGINIA Imaging Data Radiologist's Impression: Abdomen/Pelvis CT 03/03/25 17:51 EXAMINATION: CT of the abdomen and pelvis performed after the administration of IV contrast TECHNIQUE: Helical CT images from the lung bases through the symphysis pubis were obtained with contrast. Coronal and sagittal reformatted images were generated at a workstation for further assessment. Dose reduction techniques were achieved by using automatic exposure control and/or adjustment of mA and/or kV according to patient size and/or use of iterative reconstruction technique. COMPARISON: 06/03/2024 HISTORY: Abdominal pain FINDINGS: Lower chest: No consolidation. No pleural effusion or pneumothorax. Liver: No suspicious liver lesions. Portal veins appear patent. Gallbladder: Cholecystectomy. Pneumobilia is present. Spleen: Normal size. Pancreas: No suspicious pancreatic lesions. The pancreatic duct is not dilated. Adrenal glands: No adrenal nodules. Kidneys: No hydronephrosis or obstructing renal stones. Bladder / Pelvic organs: Surgical clips are seen about both sides of the pelvic sidewall. The endometrial stripe appears thickened up to approximately 0.9 cm in the sagittal plane.. Bowel: There is prominent wall thickening of the large bowel diffusely, most prominently at the descending, sigmoid colon, and rectum. Inflammatory fat stranding and free fluid is seen about the descending colon. There is moderate free fluid also in the pelvis.. The appendix is not visualized. Lymph nodes: No retroperitoneal, mesenteric, or pelvic lymphadenopathy. Peritoneum / Retroperitoneum: No free air Vessels: No infrarenal aortic aneurysm. Heavy aortoiliac calcification. Bones and soft tissues: No suspicious lesion in the bones. Degenerative changes of the spine. IMPRESSION: 1. Pancolitis, most prominently involving the left colon. There is moderate free fluid in the pelvis and extensive fluid about the left colon. 2. Thickness of the endometrial stripe in the sagittal plane of approximately 0.9 cm. Recommend nonemergent pelvic ultrasound. Electronically signed by Grey Schuster 03-03-2025 8:23 PM Discharge Plan Visit Data Chief Complaint: Illness Stated Complaint: ILLNESS ED Provider: Neal Zimmerman Discharge Problem: Colitis, Bloody diarrhea Patient Disposition: Being Evaluated by Hospitalist Condition: Fair Forms Stand Alone Forms: My [facility] Prescriptions Prescriptions: No Action atorvastatin 40 mg tablet 40 mg PO DAILY Qty: 90 3RF Rx Instructions: PER EXT MED HX --LAST FILLED 01/17/24 FOR 90 TABS amlodipine 5 mg tablet 5 mg PO DAILY Qty: 90 1RF lisinopril 20 mg tablet 20 mg PO DAILY Qty: 90 1RF Rx Instructions: PER EXT MED HX--LAST FILLED 07/13/23 FOR 90 TABS. diazepam 5 mg tablet 5 mg PO BID PRN (Reason: anxiety) Qty: 60 3RF morphine 15 mg tablet extended release 15 mg PO HS PRN (Reason: severe pain) Qty: 90 0RF levothyroxine 75 mcg tablet 75 mcg PO DAILY Qty: 90 2RF meprobamate 400 mg tablet 400 mg PO .Q4-6XDAY PRN (Reason: pain) Qty: 60 0RF hydrochlorothiazide 12.5 mg tablet 12.5 mg PO DAILY Qty: 90 1RF Rx Instructions: PER EXT MED HX--LAST FILLED 07/13/23 FOR 90 TABS. cholecalciferol (vitamin D3) 2,000 unit capsule 2,000 units PO DAILY Qty: 30 0RF hydroxyzine pamoate 50 mg capsule 50 mg PO Q4H Referrals Referrals: Mray Mckeon MD [Primary Care Provider] -
[2025-03-03] MEDS: ONDANSETRON INJ 2 MG/ML 2 ML VIAL IV STA ×2 (18:02→20:11)
[2025-03-03] MEDS: SODIUM CHLORIDE 0.9% 500 ML IV ONE ×2 (18:02→19:35)
[2025-03-03 18:07] LABS: Hematocrit (blood only) 38.1 % (37.0-47.0); Hemoglobin 13.3 g/dl (12.0-16.0); Mean Corpuscular Hemoglobin 31.9 pg (25.0-34.0); Mean Corpuscular Hgb Conc 34.9 g/dL (32.0-36.0); Mean Corpuscular Volume 91.4 fL (80.0-100.0); Platelet Count 245 K/uL (130-400); RDW Coefficient of Variation 11.5 % (11.5-14.5); RDW Standard Deviation 38.8 fL (36.4-46.3); Red Blood Count 4.17 M/uL (4.20-5.40); White Blood Count 36.52 K/ul (4.8-10.8)
[2025-03-03 18:13] LABS: Basophils # (auto) 0.09 K/uL (0.00-0.20); Basophils % (auto) 0.2 %; Immature Granulocytes # (auto) 0.41 K/uL (0.01-0.20); Immature Granulocytes % (auto) 1.1 %; Lymphocytes # (auto) 0.32 K/uL (1.20-3.40); Lymphocytes % (auto) 0.9 %; Monocytes # (auto) 1.73 K/uL (0.11-0.59); Monocytes % (auto) 4.7 %; Neutrophils # (auto) 33.97 K/uL (1.40-6.50); Neutrophils % (auto) 93.1 %
[2025-03-03 18:22] LABS: Alanine Aminotransferase 17 U/L (7-52); Albumin Globulin Ratio 1.4 (0.9-2); Albumin Level 4.3 gm/dl (3.4-5.0); Alkaline Phosphatase 98 U/L (34-104); Anion Gap 9 (3-11); Aspartate Aminotransferase 24 U/L (13-39); BUN Creatinine Ratio 29.9 (10-20); Bilirubin,Total 0.7 mg/dl (0.2-1.0); Blood Urea Nitrogen 47 mg/dl (6-23); Calcium 9.6 mg/dl (8.6-10.3); Carbon Dioxide 24 mmol/L (21-32); Chloride 108 mmol/L (98-107); Globulin 3.1 gm/dl (2.5-4.0); Glucose 234 mg/dl (70-99(Fasting)); Magnesium 1.5 mg/dl (1.7-2.4); Potassium 4.2 mmol/L (3.5-5.1); Sodium 141 mmol/L (136-145); Total Protein 7.4 gm/dl (6.0-8.3)
[2025-03-03 18:27] LABS: Troponin I High Sensitivity 13.8 pg/ml (0-14)
[2025-03-03 18:37] LABS: Thyroid Stimulating Hormone 0.875 uIu/ml (0.300-4.500)
[2025-03-03] MEDS: OPTIRAY 320 100ml IV ONE (18:39)
[2025-03-03 18:47] LABS: Influenza A virus by PCR Negative (Neg); Influenza B virus by PCR Negative (Neg); RSV by PCR Negative (Neg); SARS CoV2 RNA(COVID-19) Ceph NEGATIVE (Negative)
[2025-03-03] MEDS: MAGNESIUM SULFATE / D5W 1 GM/100 ML BAG IV STA (20:11)
--- NOTE | 2025-03-03 20:25 | CT Scan Report ---
EXAMINATION: CT of the abdomen and pelvis performed after the administration of IV contrast TECHNIQUE: Helical CT images from the lung bases through the symphysis pubis were obtained with contrast. Coronal and sagittal reformatted images were generated at a workstation for further assessment. Dose reduction techniques were achieved by using automatic exposure control and/or adjustment of mA and/or kV according to patient size and/or use of iterative reconstruction technique. COMPARISON: 06/03/2024 HISTORY: Abdominal pain FINDINGS: Lower chest: No consolidation. No pleural effusion or pneumothorax. Liver: No suspicious liver lesions. Portal veins appear patent. Gallbladder: Cholecystectomy. Pneumobilia is present. Spleen: Normal size. Pancreas: No suspicious pancreatic lesions. The pancreatic duct is not dilated. Adrenal glands: No adrenal nodules. Kidneys: No hydronephrosis or obstructing renal stones. Bladder / Pelvic organs: Surgical clips are seen about both sides of the pelvic sidewall. The endometrial stripe appears thickened up to approximately 0.9 cm in the sagittal plane.. Bowel: There is prominent wall thickening of the large bowel diffusely, most prominently at the descending, sigmoid colon, and rectum. Inflammatory fat stranding and free fluid is seen about the descending colon. There is moderate free fluid also in the pelvis.. The appendix is not visualized. Lymph nodes: No retroperitoneal, mesenteric, or pelvic lymphadenopathy. Peritoneum / Retroperitoneum: No free air Vessels: No infrarenal aortic aneurysm. Heavy aortoiliac calcification. Bones and soft tissues: No suspicious lesion in the bones. Degenerative changes of the spine. IMPRESSION: 1. Pancolitis, most prominently involving the left colon. There is moderate free fluid in the pelvis and extensive fluid about the left colon. 2. Thickness of the endometrial stripe in the sagittal plane of approximately 0.9 cm. Recommend nonemergent pelvic ultrasound. Electronically signed by Grey Schuster 03-03-2025 8:23 PM
--- NOTE | 2025-03-03 20:59 | History & Physical Report ---
Date of Service March 03, 2025 Assessment & Plan (1) Pancolitis: (2) Bloody diarrhea: (3) JOHANNA (acute kidney injury): (4) Hypomagnesemia: Plan Patient is an 84-year-old female with past medical history of hypertension, hypothyroidism, anxiety. Patient presented due to sudden onset nausea and diarrhea that began this morning with associated left lower quadrant abdominal pain. AP CT showed pancolitis and patient was found to have an elevated white blood cell count of 36 with a left shift. Laboratories showed mild JOHANNA with creatinine increased from 1.03 to 1.57 as well as hypomagnesemia suspected to be due to hypovolemia/depletion. #Pancolitis - AP CT showed pancolitis with free fluid within the pelvis and left colon. Patient with significant leukocytosis (WC 36 with left shift). Stool cultures negative, however clinically aligns with C. difficile; will reorder C. difficile testing and treat empirically with Dificid. Patient with hematochezia; hemodynamically stable and Hgb at baseline. No noted history of inflammatory bowel disease; patient denies ever having colonoscopy. *Of note patient had similar presentation in June 2024 with transaminitis. Had GI eval - Hepatitis labs negative, autoimmune labs negative, MRCP showed dilation of intrahepatic hepatic and extrahepatic bile ducts. - Nausea control with Zofran prn; Compazine prn 2nd line - morphine as needed for pain; patient has allergy to Tylenol and JOHANNA as noted below, some allergy to opioids however has tolerated morphine in the past - bowel rest, NPO - Hold nonessential p.o. medications - IVF resuscitation - will empirically treat for C. difficile with Dificid given significant leukocytosis and advanced age - Repeat stool cultures ordered as high clinical suspicion for C. difficile infection - consider starting on Zosyn if 2nd culture negative for C diff. - blood cultures ordered - procalcitonin ordered - Trend CBC to monitor WBC and H&H #JOHANNA/ hypomagnesemia - 2/2 hypovolemia/volume depletion with significant diarrhea. Magnesium 1.5, other electrolytes stable. CR increased from 1.03 to 1.57, BUN 47 (indicating prerenal cause). - total of 2G IV magnesium ordered - UA ordered - Avoid nephrotoxic agents - hold lisinopril, HCTZ - received 1L NSS bolus in ED; Additional 1 hour LR bolus ordered at time of admission and continue fluid resuscitation with LR at 150 mL/hr - trend BMP + magnesium #HTN stable - Holding HCTZ and lisinopril with JOHANNA - Holding amlodipine with bowel rest #Hypothyroidism stable, TSH WNL - Holding levothyroxine with bowel rest #Anxiety stable - Holding diazepam, hydroxyzine, and meprobamate with bowel rest VTE ppx: SCDs, low risk and with hematochezia Dispo: PCU Admission and Anticipated Discharge Date Admission Date: 03/03/25 History of Present Illness Chief Complaint: Illness Primary Care Provider: Mary Mckeon MD Patient is an 84-year-old female with past medical history of hypertension, hypothyroidism, anxiety. Patient presented due to sudden onset nausea and diarrhea that began this morning with associated left lower quadrant abdominal pain. AP CT showed pancolitis and patient was found to have an elevated white blood cell count of 36 with a left shift. Laboratories showed mild JOHANNA with creatinine increased from 1.03 to 1.57 as well as hypomagnesemia suspected to be due to hypovolemia/depletion. Patient seen at bedside. She is frail and appears mildly confused however is alert and oriented. She stated this morning she woke up to feed her cats and felt fine and then all of a sudden she developed sudden onset diarrhea and abdominal pain. She stated her abdominal pain is in her right upper quadrant similar to when she was here in June. She has since developed nausea without vomiting. She denies any blood in her stools, however nursing reports maroon stools have now transitioned to bright red blood filling the bowl. She denies any recent travel or antibiotic use. She denies any recent history of NSAID use. She stated she has never had a colonoscopy before. She denies any fevers, chills, chest pain, shortness of breath. She does not use nicotine or alcohol products. She stated she lives at home with her . She took her medications this morning. She wishes to be full code. Patient stated she gets extremely nauseous and with vomiting when she takes Tylenol. She does have an allergy to opioids however has tolerated morphine well in the past. Spoke with nursing staff regarding patient's bowel movements. They stated she has been having frequent loose bowel movements that have progressed from maroon- colored to bright red blood filling toilet bowl. Patient is hemodynamically stable and hemoglobin is at baseline. Allergies Allergy/AdvReac Type Severity Reaction Status Date / Time acetaminophen Allergy Unknown Unknown Verified 03/03/25 19:12 codeine Allergy Unknown Unknown Verified 03/03/25 19:12 cyclobenzaprine Allergy Unknown Unknown Verified 03/03/25 19:12 Opioids - Morphine Analogues Allergy Unknown Unknown Verified 03/03/25 19:12 oxycodone Allergy Unknown Unknown Verified 03/03/25 19:12 propoxyphene Allergy Unknown Unknown Verified 03/03/25 19:12 Home Medications Medication Instructions Recorded Confirmed Type cholecalciferol (vitamin D3) 50 2,000 units PO DAILY #30 caps 05/13/19 03/03/25 Rx mcg (2,000 unit) capsule atorvastatin 40 mg tablet 40 mg PO DAILY #90 tabs 08/25/24 03/03/25 Rx amlodipine 5 mg tablet 5 mg PO DAILY #90 tabs 12/08/24 03/03/25 Rx lisinopril 20 mg tablet 20 mg PO DAILY #90 tabs 12/08/24 03/03/25 Rx diazepam 5 mg tablet 5 mg PO BID PRN anxiety #60 tabs 12/16/24 03/03/25 Rx morphine 15 mg tablet,extended 15 mg PO HS PRN severe pain #90 01/20/25 03/03/25 Rx release tabs levothyroxine 75 mcg tablet 75 mcg PO DAILY #90 tabs 02/04/25 03/03/25 Rx meprobamate 400 mg tablet 400 mg PO .Q4-6XDAY PRN pain #60 02/09/25 03/03/25 Rx tabs hydrochlorothiazide 12.5 mg tablet 12.5 mg PO DAILY #90 tabs 03/03/25 03/03/25 Rx hydroxyzine pamoate 50 mg capsule 50 mg PO Q4H 03/03/25 03/03/25 History Past Med/Surg History Problem List (Updated 03/03/25 @ 22:19 by Supriya Palomares PA-C) Hypomagnesemia JOHANNA (acute kidney injury) Pancolitis Bloody diarrhea (Acute) Colitis (Acute) HTN (hypertension) (Acute) Elevated bilirubin (Acute) Transaminitis (Acute) Impacted cerumen of both ears Routine health maintenance (Chronic) Vitamin D deficiency (Chronic) Temporomandibular joint dysfunction syndrome (Chronic) Hypothyroidism (Chronic) Hyperlipidemia (Chronic) Elevated blood sugar level (Acute) History of mandibular surgery No pertinent family history HTN (hypertension) TMJ (dislocation of temporomandibular joint) Medical History Vomiting Abdominal pain Surgical History H/O oophorectomy Family History Mother Hypertension Denies family history of Ovarian cancer Prostate cancer Diabetes Myocardial infarction Breast cancer Colorectal cancer Social History Smoking Status: Never smoker Second Hand Exposure: Yes (As a child. 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 Beliefs That Will Affect Care: None marital status: Current Living Situation: Spouse current occupational status: retired How many Children do You have: 3 Feels Safe at Home: Yes Childhood Exposure to Second-Hand Smoke: Yes Diet: regular caffeine: Yes (coffee) during the past year weight has: remained stable Dental Care, Regularly: No Physical Activity Frequency: 1-2 Times per Week Seatbelt Use: sometimes Sunscreen Use: No Do you think of yourself as: straight/heterosexual Sexual Activity: has been sexually active, but not for at least 12 months Gender Identity: Female Assistive Devices: Glasses Review of Systems Review of Systems: See HPI Physical Exam Physical Exam: The patient is awake, alert and oriented 3, Frail. HEENT- EOMI, mucous membranes dry. Hearing grossly intact. Heart-normal S1 and S2. No murmurs, rubs or gallops. Lungs-clear bilaterally, no respiratory distress, no accessory muscle use. Abdomen-normal bowel sounds and soft. No ascites noted. Tenderness to the right upper quadrant. Extremities- no clubbing, cyanosis, or edema. Results & Data Results & Data Vital Signs (Past 12 Hours) Vital Signs Temp Pulse Pulse Resp BP BP Pulse Ox 03/03/25 20:07 73 23 161/63 H 97 03/03/25 17:51 68 16 100 03/03/25 17:47 36.4 C L 68 16 167/80 H 100 03/03/25 17:43 69 O2 Del Method 03/03/25 20:07 Room Air 03/03/25 17:51 Room Air 03/03/25 17:47 Room Air 03/03/25 17:43 Laboratory Results reviewed CBC, CMP, magnesium, TSH, COVID/flu/RSV swab, stool cultures Diagnostic Findings reviewed AP CT Medications Administered ED1L NSS bolus, Zofran 4 Mg IV x 2, magnesium 1G IV AdmissionLR at 150 mL/hour, additional 1G IV magnesium ECG Additional Comments: Ordered Code Status & VTE Plan Code Status Full code VTE Prophylaxis Plan VTE Prophylaxis will be ordered: Yes Supervising Physician Co-Signing Physician Notes I personally saw and examined the patient. I independently reviewed the labs, EKG, imaging, problem list, medication list, past medical history and family history. I verified all thornton points and agree with Supriya Palomares PA-C with the following exceptions and/or additions: 84 year old female presents to the ER with sudden onset watery diarrhea. O/E HS RRR, systolic murmur, Chest CTAB, Abdo LLQ tenderness without guarding or rebound tenderness A/P Sepsis/pancolitis - even though initial c. diff testing in the ER negative this remains the most likely diagnosis and will continue empiric treatment with dificid pending repeat sample. Blood culture taken to assess for alternative etiology. No antibiotics within the last few months. PG Care Time/CCT Total # of Minutes Spent Total Time Spent with Patient: Total time spent is greater than 50% in coordination of care (as documented) at patient's floor/unit and/or counseling patient: Coding Level of Care Code 31877 INT INP/OBS CARE 3/75MIN Diagnoses Pancolitis K52.9 Bloody diarrhea R19.7 JOHANNA (acute kidney injury) N17.9 Hypomagnesemia E83.42
[2025-03-03 21:26] LABS: Adenovirus F 40/41 PCR Not Detected (NotDetected); Astrovirus PCR Not Detected (NotDetected); Campylobacter PCR Not Detected (NotDetected); Cryptosporidium PCR Not Detected (NotDetected); Cyclospora cayetanensis PCR Not Detected (NotDetected); Entamoeba histolytica PCR Not Detected (NotDetected); Enteroaggregative E.coli(EAEC) Not Detected (NotDetected); Enteropathogenic E.coli (EPEC) Not Detected (NotDetected); Enterotoxigenic E.coli (ETEC) Not Detected (NotDetected); Giardia lamblia PCR Not Detected (NotDetected); Norovirus GI/GII PCR Not Detected (NotDetected); Plesiomonas shigelloides PCR Not Detected (NotDetected); Rotavirus A PCR Not Detected (NotDetected); Salmonella PCR Not Detected (NotDetected); Sapovirus PCR Not Detected (NotDetected); Shiga-like Toxin E.coli (STEC) Not Detected (NotDetected); Shigella/Enteroinvasive E.coli Not Detected (NotDetected); Vibrio cholerae PCR Not Detected (NotDetected); Vibrio species PCR Not Detected (NotDetected); Yersinia enterocolitica PCR Not Detected (NotDetected)
[2025-03-03] MEDS ORDERED: FIDAXOMICIN 200 MG TAB PO ONE (21:50)
[2025-03-03] MEDS: LACTATED RINGER'S 1,000 ML IV SCH (22:14)
[2025-03-03] MEDS: LACTATED RINGER'S 1,000 ML IV ONE (22:16)
[2025-03-03] MEDS: MoRPHine SULFATE 2 MG/ML CARP IV STA (22:17)
[2025-03-03] MEDS: MAGNESIUM SULFATE / D5W 1 GM/100 ML BAG IV ONE (22:20)
[2025-03-03] MEDS ORDERED: PROCHLORPERAZINE 5 MG in SYRINGE 4 ML IV PRN (23:36)
[2025-03-03] MEDS ORDERED: MoRPHine SULFATE 4 MG/ML 1 ML CARP\\VIAL IV PRN (23:36)
[2025-03-04] MEDS: Patient's HEIGHT &/or WEIGHT Needed STA (00:09)
[2025-03-04] MEDS: FIDAXOMICIN 200 MG TAB PO STA (00:09)
[2025-03-04] MEDS ORDERED: PNEUMOCOCCAL VACCINE (PCV20) 20-VAL CONJ-DIP CRM/PF 0.5 ML SYR IM ONE (01:39)
[2025-03-04 03:15] LABS: Appearance Urine Clear (Clear); Bilirubin Urine Negative (Negative); Blood Urine Negative (Negative); Color Urine Yellow; Glucose Urine UA Trace (Negative); Ketones Urine Negative (Negative); Leukocyte Esterase Urine Negative (Negative); Nitrite Urine Negative (Negative); Protein Urine Negative (Negative); Specific Gravity Urine 1.029 (1.000-1.030); Urobilinogen Urine Negative (Negative)
[2025-03-04 06:33] LABS: Hematocrit (blood only) 29.8 % (37.0-47.0); Hemoglobin 10.4 g/dl (12.0-16.0); Mean Corpuscular Hemoglobin 31.4 pg (25.0-34.0); Mean Corpuscular Hgb Conc 34.9 g/dL (32.0-36.0); Mean Platelet Volume 10.3 fL (9.4-12.4); Platelet Count 186 K/uL (130-400); RDW Coefficient of Variation 11.4 % (11.5-14.5); Red Blood Count 3.31 M/uL (4.20-5.40); White Blood Count 22.15 K/ul (4.8-10.8)
[2025-03-04 06:43] LABS: Basophils # (auto) 0.03 K/uL (0.00-0.20); Basophils % (auto) 0.1 %; Immature Granulocytes # (auto) 0.21 K/uL (0.01-0.20); Immature Granulocytes % (auto) 0.9 %; Lymphocytes # (auto) 0.46 K/uL (1.20-3.40); Lymphocytes % (auto) 2.1 %; Monocytes # (auto) 0.72 K/uL (0.11-0.59); Monocytes % (auto) 3.3 %; Neutrophils # (auto) 20.73 K/uL (1.40-6.50); Neutrophils % (auto) 93.6 %; RBC Morphology Unremarkable
[2025-03-04 06:45] LABS: Albumin Globulin Ratio 1.5 (0.9-2); Albumin Level 3.4 gm/dl (3.4-5.0); BUN Creatinine Ratio 28.4 (10-20); Bilirubin,Total 0.6 mg/dl (0.2-1.0); Calcium 8.5 mg/dl (8.6-10.3); Creatinine Clr Calc Pharmacy 24.1 ml/min; Globulin 2.3 gm/dl (2.5-4.0); Magnesium 1.9 mg/dl (1.7-2.4); Potassium 3.8 mmol/L (3.5-5.1); Total Protein 5.7 gm/dl (6.0-8.3)
[2025-03-04] MEDS: FIDAXOMICIN 200 MG TAB PO SCH (09:32)
--- NOTE | 2025-03-04 12:54 | Hospitalist Progress Note ---
Date of Service March 04, 2025 Assessment & Plan (1) Pancolitis: (2) Bloody diarrhea: (3) JOHANNA (acute kidney injury): (4) Hypomagnesemia: Plan Patient is an 84-year-old female with past medical history of hypertension, hypothyroidism, anxiety. Patient presented due to sudden onset nausea and diarrhea that began this morning with associated left lower quadrant abdominal pain. AP CT showed pancolitis and patient was found to have an elevated white blood cell count of 36 with a left shift. Laboratories showed mild JOHANNA with creatinine increased from 1.03 to 1.57 as well as hypomagnesemia suspected to be due to hypovolemia/depletion. #Pancolitis - AP CT showed pancolitis with free fluid within the pelvis and left colon. Patient with significant leukocytosis (WC 36 with left shift). Stool cultures negative, however clinically aligns with C. difficile; C. difficile testing reordered and treat empirically with Dificid. Patient with hematochezia; hemodynamically stable and Hgb at baseline. No noted history of inflammatory bowel disease; patient denies ever having colonoscopy. Patient is feeling better overall. Diarrhea improving Leukocytosis improving. 36-22 today Continue n.p.o. Continue IV fluids - morphine as needed for pain; patient has allergy to Tylenol and JOHANNA as noted below, some allergy to opioids however has tolerated morphine in the past - consider starting on Zosyn if 2nd culture negative for C diff. - blood cultures ordered - procalcitonin ordered H&H down from -08/26. Part of it could be hemodilution related. Will continue to monitor. #JOHANNA/ hypomagnesemia - 2/2 hypovolemia/volume depletion with significant diarrhea. Magnesium 1.5, other electrolytes stable. CR increased from 1.03 to 1.57, BUN 47 (indicating prerenal cause). - Creatinine improved from 1.6-1.4 Magnesium improved after replacement Continue to trend Continue to hold lisinopril and hydrochlorothiazide #HTN stable - Holding HCTZ and lisinopril with JOHANNA - Holding amlodipine with bowel rest #Hypothyroidism stable, TSH WNL - Holding levothyroxine with bowel rest #Anxiety stable - Holding diazepam, hydroxyzine, and meprobamate with bowel rest VTE ppx: SCDs, low risk and with hematochezia Full code Admission and Anticipated Discharge Date Admission Date: March 03, 2025 Subjective Patient says that she feels better overall. Her pain has improved. Per nurse, she has had a few episodes of diarrhea but the volumes are less. Review of Systems Review of Systems: All systems reviewed & are unremarkable except as noted in Subjective Physical Exam Physical Exam: General: Awake, conversant. Elderly frail looking woman Heart: S1, S2/regular rate and rhythm, no murmur rubs or gallops Lungs: Clear to auscultation bilaterally. Normal effort Abdomen: Soft/nondistended. Mild tenderness to palpation diffusely all over abdomen without rebound, rigidity or guarding. No hepatosplenomegaly Extremities: No clubbing/cyanosis. No edema Behavior: Appropriate, cooperative Results & Data Results & Data Vital Signs (Past 12 Hours) Vital Signs Temp Pulse Resp BP Pulse Ox O2 Del Method 03/04/25 11:23 36.7 C 73 18 118/44 L 93 Room Air 03/04/25 08:14 36.7 C 78 18 145/74 H 96 Room Air 03/04/25 02:59 37.0 C 16 133/90 98 Room Air Laboratory Results Abnormal lab results 03/03/25 03/04/25 03/04/25 Range/Units 17:40 01:18 05:32 WBC 36.52 H* 22.15 H (4.8-10.8) K/ul RBC 4.17 L 3.31 L (4.20-5.40) M/uL Hgb 10.4 L D (12.0-16.0) g/dl Hct 29.8 L (37.0-47.0) % RDW Coeff of Mj 11.4 L (11.5-14.5) % Neut # (Auto) 33.97 H 20.73 H (1.40-6.50) K/uL Lymph # (Auto) 0.32 L 0.46 L (1.20-3.40) K/uL Pike # (Auto) 1.73 H 0.72 H (0.11-0.59) K/uL Immature Gran # (Auto) 0.41 H 0.21 H (0.01-0.20) K/uL Chloride 108 H 110 H (98-107) mmol/L BUN 47 H 40 H (6-23) mg/dl Creatinine 1.57 H 1.41 H (0.6-1.2) mg/dl BUN/Creatinine Ratio 29.9 H 28.4 H (10-20) Glucose 234 H 147 H (70-99(Fasting)) mg/dl Calcium 8.5 L (8.6-10.3) mg/dl Magnesium 1.5 L (1.7-2.4) mg/dl Total Protein 5.7 L D (6.0-8.3) gm/dl Globulin 2.3 L (2.5-4.0) gm/dl Procalcitonin 1.39 H (0-0.5) ng/ml Urine Glucose (UA) Trace H (Negative) Diagnostic Findings Abdomen/Pelvis CT 03/03/25 17:51 EXAMINATION: CT of the abdomen and pelvis performed after the administration of IV contrast TECHNIQUE: Helical CT images from the lung bases through the symphysis pubis were obtained with contrast. Coronal and sagittal reformatted images were generated at a workstation for further assessment. Dose reduction techniques were achieved by using automatic exposure control and/or adjustment of mA and/or kV according to patient size and/or use of iterative reconstruction technique. COMPARISON: 06/03/2024 HISTORY: Abdominal pain FINDINGS: Lower chest: No consolidation. No pleural effusion or pneumothorax. Liver: No suspicious liver lesions. Portal veins appear patent. Gallbladder: Cholecystectomy. Pneumobilia is present. Spleen: Normal size. Pancreas: No suspicious pancreatic lesions. The pancreatic duct is not dilated. Adrenal glands: No adrenal nodules. Kidneys: No hydronephrosis or obstructing renal stones. Bladder / Pelvic organs: Surgical clips are seen about both sides of the pelvic sidewall. The endometrial stripe appears thickened up to approximately 0.9 cm in the sagittal plane.. Bowel: There is prominent wall thickening of the large bowel diffusely, most prominently at the descending, sigmoid colon, and rectum. Inflammatory fat stranding and free fluid is seen about the descending colon. There is moderate free fluid also in the pelvis.. The appendix is not visualized. Lymph nodes: No retroperitoneal, mesenteric, or pelvic lymphadenopathy. Peritoneum / Retroperitoneum: No free air Vessels: No infrarenal aortic aneurysm. Heavy aortoiliac calcification. Bones and soft tissues: No suspicious lesion in the bones. Degenerative changes of the spine. IMPRESSION: 1. Pancolitis, most prominently involving the left colon. There is moderate free fluid in the pelvis and extensive fluid about the left colon. 2. Thickness of the endometrial stripe in the sagittal plane of approximately 0.9 cm. Recommend nonemergent pelvic ultrasound. Electronically signed by Grey Schuster 03-03-2025 8:23 PM PG Care Time/CCT Total # of Minutes Spent Total Time Spent with Patient: Total time spent is greater than 50% in coordination of care (as documented) at patient's floor/unit and/or counseling patient: Coding Level of Care Code 62136 SUB INP/OBS CARE 2/35MIN Diagnoses Pancolitis K52.9 Bloody diarrhea R19.7 JOHANNA (acute kidney injury) N17.9 Hypomagnesemia E83.42
[2025-03-04] MEDS: ACETAMINOPHEN 325 MG TAB PO PRN (13:46)
[2025-03-04] MEDS: MoRPHine SULFATE 2 MG/ML CARP IV PRN (15:07)
--- NOTE | 2025-03-04 16:25 | Electrocardiogram Report ---
Test Reason : Blood Pressure : */* mmHG Vent. Rate : 74 BPM Atrial Rate : 74 BPM P-R Int : 168 ms QRS Dur : 92 ms QT Int : 390 ms P-R-T Axes : 54 20 47 degrees QTcB Int : 432 ms Poor data quality, interpretation may be adversely affected Normal sinus rhythm Nonspecific ST abnormality Abnormal ECG When compared with ECG of 03-Mar-2025 17:43, No significant change Confirmed by Edgar Fuller ([id number]) on 03/04/2025 4:25:11 PM Referred By: REFERRED SELF Confirmed By: Edgar Fuller
--- NOTE | 2025-03-04 16:25 | Electrocardiogram Report ---
Test Reason : Blood Pressure : */* mmHG Vent. Rate : 66 BPM Atrial Rate : 66 BPM P-R Int : 154 ms QRS Dur : 92 ms QT Int : 406 ms P-R-T Axes : 81 81 60 degrees QTcB Int : 425 ms Normal sinus rhythm Nonspecific ST and T wave abnormality When compared with ECG of 03-Jun-2024 15:38, Criteria for Inferior infarct are no longer Present Confirmed by Edgar Fuller ([id number]) on 03/04/2025 4:24:45 PM Referred By: REFERRED SELF Confirmed By: Edgar Fuller
[2025-03-04] MEDS: ACETAMINOPHEN 1,000 MG/100 ML VIAL IV STA (17:14)
[2025-03-04] MEDS: ONDANSETRON INJ 2 MG/ML 2 ML VIAL IV PRN (17:15)
[2025-03-04] MEDS: METHOCARBAMOL 750 MG TABLET PO ONE (20:40)
[2025-03-05 06:12] LABS: Hematocrit (blood only) 26.8 % (37.0-47.0); Hemoglobin 9.1 g/dl (12.0-16.0); Mean Corpuscular Hemoglobin 30.5 pg (25.0-34.0); Mean Corpuscular Volume 89.9 fL (80.0-100.0); Mean Platelet Volume 10.3 fL (9.4-12.4); Platelet Count 140 K/uL (130-400); RDW Coefficient of Variation 11.4 % (11.5-14.5); RDW Standard Deviation 37.1 fL (36.4-46.3); Red Blood Count 2.98 M/uL (4.20-5.40); White Blood Count 14.87 K/ul (4.8-10.8)
[2025-03-05 06:30] LABS: Albumin Globulin Ratio 1.4 (0.9-2); BUN Creatinine Ratio 25.2 (10-20); Bilirubin,Total 0.5 mg/dl (0.2-1.0); Creatinine Clr Calc Pharmacy 28.3 ml/min; Globulin 2.1 gm/dl (2.5-4.0); Magnesium 1.6 mg/dl (1.7-2.4); Potassium 3.3 mmol/L (3.5-5.1); Total Protein 5.1 gm/dl (6.0-8.3)
[2025-03-05 07:16] LABS: Basophils # (auto) 0.03 K/uL (0.00-0.20); Basophils % (auto) 0.2 %; Eosinophils # (auto) 0.01 K/uL (0.00-0.50); Eosinophils % (auto) 0.1 %; Immature Granulocytes # (auto) 0.09 K/uL (0.01-0.20); Immature Granulocytes % (auto) 0.6 %; Lymphocytes # (auto) 0.71 K/uL (1.20-3.40); Lymphocytes % (auto) 4.8 %; Monocytes % (auto) 3.4 %; Neutrophils # (auto) 13.53 K/uL (1.40-6.50); Neutrophils % (auto) 90.9 %
[2025-03-05] MEDS: MAGNESIUM SULFATE / D5W 1 GM/100 ML BAG IV SCH (08:03)
[2025-03-05] MEDS: POTASSIUM CHLORIDE CRTAB 20 MEQ TABCR PO STA (08:04)
[2025-03-05] MEDS: POTASSIUM CHLORIDE 20 MEQ/15 ML UDC PO STA (09:04)
[2025-03-05] MEDS ORDERED: diazePAM 5 MG TABLET PO PRN (13:13)
--- NOTE | 2025-03-05 13:16 | Hospitalist Progress Note ---
Date of Service March 05, 2025 Assessment & Plan (1) Pancolitis: (2) Bloody diarrhea: (3) JOHANNA (acute kidney injury): (4) Hypomagnesemia: Plan Patient is an 84-year-old female with past medical history of hypertension, hypothyroidism, anxiety. Patient presented due to sudden onset nausea and diarrhea that began this morning with associated left lower quadrant abdominal pain. AP CT showed pancolitis and patient was found to have an elevated white blood cell count of 36 with a left shift. Laboratories showed mild JOHANNA with creatinine increased from 1.03 to 1.57 as well as hypomagnesemia suspected to be due to hypovolemia/depletion. #Pancolitis - AP CT showed pancolitis with free fluid within the pelvis and left colon. Patient with significant leukocytosis (WC 36 with left shift). Stool cultures negative, however clinically aligns with C. difficile; C. difficile testing reordered and treat empirically with Dificid. Patient with hematochezia; hemodynamically stable and Hgb at baseline. No noted history of inflammatory bowel disease; patient denies ever having colonoscopy. Patient is feeling better overall. Diarrhea improving Leukocytosis improving. 36-22- 14 today Start clear liquid diet Discontinue IV fluids - morphine as needed for pain; patient has allergy to Tylenol and JOHANNA as noted below, some allergy to opioids however has tolerated morphine in the past - consider starting on Zosyn if 2nd culture negative for C diff. - blood cultures ordered - procalcitonin ordered H&H down from -08/26. Part of it could be hemodilution related. Will continue to monitor. #JOHANNA/ hypomagnesemia - 2/2 hypovolemia/volume depletion with significant diarrhea. Magnesium 1.5, other electrolytes stable. CR increased from 1.03 to 1.57, BUN 47 (indicating prerenal cause). - Creatinine improved from 1.6-1.4-to 1.2 today Magnesium repleted Continue to trend Continue to hold lisinopril and hydrochlorothiazide Discontinue IV fluids Start clear liquid diet #HTN stable - Holding HCTZ and lisinopril with JOHANNA - Resume amlodipine #Hypothyroidism stable, TSH WNL - Resume Synthroid #Anxiety stable - Resume diazepam, hydroxyzine, and meprobamate with bowel rest VTE ppx: SCDs, low risk and with hematochezia Full code Admission and Anticipated Discharge Date Admission Date: March 03, 2025 Subjective Patient says she feels better. Per nurse, she still has diarrhea but the volumes and frequency have improved significantly. Her pain has improved as well Review of Systems Review of Systems: All systems reviewed & are unremarkable except as noted in Subjective Physical Exam Physical Exam: General: Awake, conversant. Elderly frail looking woman Heart: S1, S2/regular rate and rhythm, no murmur rubs or gallops Lungs: Clear to auscultation bilaterally. Normal effort Abdomen: Soft/nondistended. Nontender. No hepatosplenomegaly Extremities: No clubbing/cyanosis. No edema Behavior: Appropriate, cooperative Results & Data Results & Data Vital Signs (Past 12 Hours) Vital Signs Temp Pulse Resp BP Pulse Ox O2 Del Method 03/05/25 12:00 36.7 C 62 19 151/74 H 97 Room Air 03/05/25 08:28 37.0 C 68 18 172/73 H 97 Room Air 03/05/25 03:20 37.1 C 64 18 115/52 L 95 Room Air Laboratory Results Abnormal lab results 03/05/25 Range/Units 05:47 WBC 14.87 H (4.8-10.8) K/ul RBC 2.98 L (4.20-5.40) M/uL Hgb 9.1 L (12.0-16.0) g/dl Hct 26.8 L (37.0-47.0) % RDW Coeff of Mj 11.4 L (11.5-14.5) % Neut # (Auto) 13.53 H (1.40-6.50) K/uL Lymph # (Auto) 0.71 L (1.20-3.40) K/uL Potassium 3.3 L (3.5-5.1) mmol/L Chloride 110 H (98-107) mmol/L BUN 31 H (6-23) mg/dl Creatinine 1.23 H (0.6-1.2) mg/dl BUN/Creatinine Ratio 25.2 H (10-20) Glucose 107 H (70-99(Fasting)) mg/dl Calcium 8.0 L (8.6-10.3) mg/dl Magnesium 1.6 L (1.7-2.4) mg/dl Total Protein 5.1 L (6.0-8.3) gm/dl Albumin 3.0 L (3.4-5.0) gm/dl Globulin 2.1 L (2.5-4.0) gm/dl PG Care Time/CCT Total # of Minutes Spent Total Time Spent with Patient: Total time spent is greater than 50% in coordination of care (as documented) at patient's floor/unit and/or counseling patient: Coding Level of Care Code 91167 SUB INP/OBS CARE 2/35MIN Diagnoses Pancolitis K52.9 Bloody diarrhea R19.7 JOHANNA (acute kidney injury) N17.9 Hypomagnesemia E83.42
[2025-03-05] MEDS: hydrOXYzine HCl 25 MG TAB PO SCH (14:05)
[2025-03-05] MEDS: amLODIPine BESYLATE 5 MG TAB PO SCH (14:06)
[2025-03-05] MEDS: MELATONIN 3 MG TAB PO PRN (20:44)
[2025-03-05] MEDS: METHOCARBAMOL 750 MG TABLET PO ONE (20:45)
[2025-03-05] MEDS: MoRPHine SULFATE CR 15 MG TABCR PO PRN (20:50)
[2025-03-06] MEDS: LEVOTHYROXINE SODIUM 75 MCG TABLET PO SCH (06:26)
--- NOTE | 2025-03-06 09:19 | XRay Report ---
XR chest 2V PA/lateral CLINICAL HISTORY: Hypoxia, evaluate for fluid overload COMPARISON STUDY: 01/29/2019 FINDINGS: There is mild cardiomegaly with mild pulmonary vascular congestion. There is patchy opacity at the right mid and lower lung with obscuration of the right hemidiaphragm. There is a possible tra ce right pleural effusion. No pneumothorax. IMPRESSION: Pneumonia on the right. Recommend follow-up to resolution to rule out underlying lung ma ss. ACT 112: Positive. There are findings on this exam that require communication between the performing entity and the patient following Patient Test Result Information Act ([place] Act 112) guidelines. Electronically signed by: Ezra Serrano M.D. 03/06/2025 9:17 AM
[2025-03-06 10:28] LABS: BUN Creatinine Ratio 16.7 (10-20); Calcium 7.9 mg/dl (8.6-10.3); Creatinine Clr Calc Pharmacy 28.8 ml/min; Potassium 3.3 mmol/L (3.5-5.1)
[2025-03-06 11:04] LABS: Hematocrit (blood only) 30.2 % (37.0-47.0); Hemoglobin 10.7 g/dl (12.0-16.0); Mean Corpuscular Hemoglobin 31.6 pg (25.0-34.0); Mean Corpuscular Hgb Conc 35.4 g/dL (32.0-36.0); Mean Corpuscular Volume 89.1 fL (80.0-100.0); Mean Platelet Volume 10.4 fL (9.4-12.4); Platelet Count 138 K/uL (130-400); RDW Coefficient of Variation 11.6 % (11.5-14.5); RDW Standard Deviation 37.3 fL (36.4-46.3); Red Blood Count 3.39 M/uL (4.20-5.40); White Blood Count 13.19 K/ul (4.8-10.8)
[2025-03-06] MEDS: POTASSIUM CHLORIDE 20 MEQ/15 ML UDC PO STA (12:46)
[2025-03-06] MEDS: cefTRIAXone SODIUM 1,000 MG/50 ML BAG IV SCH (13:23)
--- NOTE | 2025-03-06 13:33 | Hospitalist Progress Note ---
Date of Service March 06, 2025 Assessment & Plan (1) Pancolitis: (2) Bloody diarrhea: (3) JOHANNA (acute kidney injury): (4) Hypomagnesemia: Plan Patient is an 84-year-old female with past medical history of hypertension, hypothyroidism, anxiety. Patient presented due to sudden onset nausea and diarrhea that began this morning with associated left lower quadrant abdominal pain. AP CT showed pancolitis and patient was found to have an elevated white blood cell count of 36 with a left shift. Laboratories showed mild JOHANNA with creatinine increased from 1.03 to 1.57 as well as hypomagnesemia suspected to be due to hypovolemia/depletion. #Pancolitis - AP CT showed pancolitis with free fluid within the pelvis and left colon. Patient with significant leukocytosis (WC 36 with left shift). Stool cultures negative, however clinically aligns with C. difficile; C. difficile testing reordered and treat empirically with Dificid. Patient with hematochezia; hemodynamically stable and Hgb at baseline. No noted history of inflammatory bowel disease; patient denies ever having colonoscopy. Patient is feeling better overall. Diarrhea improving. Stools are more formed and less frequent Patient improved with treatment of C. difficile even though C. difficile was negative x 2 Leukocytosis improving. 36 on admission to 13 today Advance to a full liquid diet Discontinued IV fluids - morphine as needed for pain; patient has allergy to Tylenol and JOHANNA as noted below, some allergy to opioids however has tolerated morphine in the past - consider starting on Zosyn if 2nd culture negative for C diff. - blood cultures ordered - procalcitonin ordered H&H down from -08/26. Part of it could be hemodilution related. Will continue to monitor. #Hypoxia Patient would need noted to be hypoxic but she did not feel short of breath. She is requiring 4 L of oxygen Chest x-ray shows a right lung infiltrate Will start Rocephin and monitor for improvement. Would not start broad-spectrum antibiotics in the absence of severe symptoms and in the setting of C. difficile. Will monitor clinically #JOHANNA/ hypomagnesemia - 2/2 hypovolemia/volume depletion with significant diarrhea. Magnesium 1.5, other electrolytes stable. CR increased from 1.03 to 1.57, BUN 47 (indicating prerenal cause). - Creatinine EYES: Pupils round equal and react to light, extraocular movements full, no injection. Magnesium repleted Continue to trend Will resume lisinopril and hydrochlorothiazide Discontinued IV fluids Advance diet to full liquid diet #HTN stable - Resume hydrochlorothiazide and lisinopril now that JOHANNA has resolved - Resume amlodipine #Hypothyroidism stable, TSH WNL - Resume Synthroid #Anxiety stable - Resume diazepam, hydroxyzine, and meprobamate with bowel rest VTE ppx: SCDs, low risk and with hematochezia Full code Admission and Anticipated Discharge Date Admission Date: March 03, 2025 Subjective This morning, the nurse informed me that the patient is requiring 3-1/2 L of oxygen. She denies feeling short of breath. Review of Systems Review of Systems: All systems reviewed & are unremarkable except as noted in Subjective Physical Exam Physical Exam: General: Awake, conversant. Elderly frail looking woman Heart: S1, S2/regular rate and rhythm, no murmur rubs or gallops Lungs: Crackles heard at right base. Normal effort Abdomen: Soft/nondistended. Nontender. No hepatosplenomegaly Extremities: No clubbing/cyanosis. No edema Behavior: Appropriate, cooperative Results & Data Results & Data Vital Signs (Past 12 Hours) Vital Signs Temp Pulse Resp BP BP Pulse Ox O2 Del Method 03/06/25 11:29 36.7 C 68 20 165/66 H 96 Nasal Cannula 03/06/25 08:42 16 90 Nasal Cannula 03/06/25 08:23 18 91 Nasal Cannula 03/06/25 08:06 37.0 C 64 18 155/71 H Room Air 03/06/25 03:19 36.9 C 53 L 18 109/58 L 95 Room Air O2 Flow Rate 03/06/25 11:29 4 03/06/25 08:42 3.5 03/06/25 08:23 3.5 03/06/25 08:06 03/06/25 03:19 Laboratory Results Abnormal lab results 03/06/25 03/06/25 Range/Units 09:50 10:24 WBC 13.19 H (4.8-10.8) K/ul RBC 3.39 L (4.20-5.40) M/uL Hgb 10.7 L (12.0-16.0) g/dl Hct 30.2 L (37.0-47.0) % Potassium 3.3 L (3.5-5.1) mmol/L Chloride 108 H (98-107) mmol/L Glucose 117 H (70-99(Fasting)) mg/dl Calcium 7.9 L (8.6-10.3) mg/dl Diagnostic Findings Chest X-Ray 03/06/25 08:36 XR chest 2V PA/lateral CLINICAL HISTORY: Hypoxia, evaluate for fluid overload COMPARISON STUDY: 01/29/2019 FINDINGS: There is mild cardiomegaly with mild pulmonary vascular congestion. There is patchy opacity at the right mid and lower lung with obscuration of the right hemidiaphragm. There is a possible trace right pleural effusion. No pneumothorax. IMPRESSION: Pneumonia on the right. Recommend follow-up to resolution to rule out underlying lung mass. ACT 112: Positive. There are findings on this exam that require communication between the performing entity and the patient following Patient Test Result Information Act ([place] Act 112) guidelines. Electronically signed by: Ezra Serrano M.D. 03/06/2025 9:17 AM PG Care Time/CCT Total # of Minutes Spent Total Time Spent with Patient: Total time spent is greater than 50% in coordination of care (as documented) at patient's floor/unit and/or counseling patient: Coding Level of Care Code 59966 SUB INP/OBS CARE 2/35MIN Diagnoses Pancolitis K52.9 Bloody diarrhea R19.7 JOHANNA (acute kidney injury) N17.9 Hypomagnesemia E83.42
[2025-03-06] MEDS: MEPROBAMATE 400 MG PO PRN (18:36)
[2025-03-07 06:18] LABS: Hematocrit (blood only) 26.2 % (37.0-47.0); Hemoglobin 9.2 g/dl (12.0-16.0); Mean Corpuscular Hemoglobin 31.4 pg (25.0-34.0); Mean Corpuscular Hgb Conc 35.1 g/dL (32.0-36.0); Mean Corpuscular Volume 89.4 fL (80.0-100.0); Mean Platelet Volume 10.1 fL (9.4-12.4); Platelet Count 133 K/uL (130-400); RDW Coefficient of Variation 11.3 % (11.5-14.5); Red Blood Count 2.93 M/uL (4.20-5.40); White Blood Count 9.41 K/ul (4.8-10.8)
[2025-03-07 06:32] LABS: BUN Creatinine Ratio 12.2 (10-20); Calcium 7.9 mg/dl (8.6-10.3); Creatinine Clr Calc Pharmacy 31.8 ml/min; Potassium 3.2 mmol/L (3.5-5.1)
[2025-03-07] MEDS: POTASSIUM CHLORIDE / WTR 10 MEQ/100 ML PLCT IV SCH (08:00)
--- NOTE | 2025-03-07 09:30 | Hospitalist Progress Note ---
Date of Service March 07, 2025 Assessment & Plan (1) Pancolitis: (2) Bloody diarrhea: (3) JOHANNA (acute kidney injury): (4) Hypomagnesemia: Plan Patient is an 84-year-old female with past medical history of hypertension, hypothyroidism, anxiety. Patient presented due to sudden onset nausea and diarrhea that began this morning with associated left lower quadrant abdominal pain. AP CT showed pancolitis and patient was found to have an elevated white blood cell count of 36 with a left shift. Laboratories showed mild JOHANNA with creatinine increased from 1.03 to 1.57 as well as hypomagnesemia suspected to be due to hypovolemia/depletion. #Pancolitis - AP CT showed pancolitis with free fluid within the pelvis and left colon. Patient with significant leukocytosis (WC 36 with left shift). Stool cultures negative, however clinically aligns with C. difficile; C. difficile testing reordered and treat empirically with Dificid. Patient with hematochezia; hemodynamically stable and Hgb at baseline. No noted history of inflammatory bowel disease; patient denies ever having colonoscopy. Patient is feeling better overall. Diarrhea improving. Stools are more formed and less frequent Patient improved with treatment of C. difficile even though C. difficile was negative x 2 Leukocytosis resolved Advance to a solid diet Discontinued IV fluids - morphine as needed for pain; patient has allergy to Tylenol and JOHANNA as noted below, some allergy to opioids however has tolerated morphine in the past - blood cultures negative Clinically improved # Right lower lobe pneumonia: Not present on admission Patient would need noted to be hypoxic but she did not feel short of breath. She was requiring 4 L of oxygen Chest x-ray shows a right lung infiltrate She was started on Rocephin and has now improved. Not requiring oxygen anymore Will discharge her on p.o. Augmentin short course. Will switch her today Would not start broad-spectrum antibiotics in the absence of severe symptoms and in the setting of C. difficile. Encouraged the patient to use incentive spirometer #JOHANNA/ hypomagnesemia - 2/2 hypovolemia/volume depletion with significant diarrhea. Magnesium 1.5, other electrolytes stable. CR increased from 1.03 to 1.57, BUN 47 (indicating prerenal cause). - Creatinine EYES: Pupils round equal and react to light, extraocular movements full, no injection. Magnesium repleted Continue to trend Will resume lisinopril and hydrochlorothiazide Discontinued IV fluids Advance diet to full liquid diet #HTN stable - Resume hydrochlorothiazide and lisinopril now that JOHANNA has resolved - Resume amlodipine #Hypothyroidism stable, TSH WNL - Resume Synthroid #Anxiety stable - Resume diazepam, hydroxyzine, and meprobamate with bowel rest VTE ppx: SCDs, low risk and with hematochezia Full code Likely discharge tomorrow 03/08 Admission and Anticipated Discharge Date Admission Date: March 03, 2025 Subjective Patient feels well. Denies chest pain or shortness of breath. Per nurse, her stools are more and more formed and less frequent. She is not needing oxygen today. Review of Systems Review of Systems: All systems reviewed & are unremarkable except as noted in Subjective Physical Exam Physical Exam: General: Awake, conversant. Elderly frail looking woman Heart: S1, S2/regular rate and rhythm, no murmur rubs or gallops Lungs: Crackles heard at right base. Normal effort Abdomen: Soft/nondistended. Nontender. No hepatosplenomegaly Extremities: No clubbing/cyanosis. No edema Behavior: Appropriate, cooperative Results & Data Results & Data Vital Signs (Past 12 Hours) Vital Signs Temp Pulse Pulse Resp BP BP Pulse Ox 03/07/25 08:20 36.8 C 58 L 18 116/47 L 03/07/25 07:00 54 L 03/07/25 03:16 37.2 C 58 L 18 117/59 L 96 03/07/25 01:35 59 L 03/07/25 00:00 Pulse Ox O2 Del Method O2 Del Method 03/07/25 08:20 Room Air 03/07/25 07:00 03/07/25 03:16 Room Air 03/07/25 01:35 03/07/25 00:00 93 Room Air Laboratory Results Abnormal lab results 03/06/25 03/06/25 03/07/25 Range/Units 09:50 10:24 06:01 WBC 13.19 H (4.8-10.8) K/ul RBC 3.39 L 2.93 L (4.20-5.40) M/uL Hgb 10.7 L 9.2 L (12.0-16.0) g/dl Hct 30.2 L 26.2 L (37.0-47.0) % RDW Coeff of Mj 11.3 L (11.5-14.5) % Potassium 3.3 L 3.2 L (3.5-5.1) mmol/L Chloride 108 H (98-107) mmol/L Glucose 117 H 111 H (70-99(Fasting)) mg/dl Calcium 7.9 L 7.9 L (8.6-10.3) mg/dl PG Care Time/CCT Total # of Minutes Spent Total Time Spent with Patient: Total time spent is greater than 50% in coordination of care (as documented) at patient's floor/unit and/or counseling patient: Coding Level of Care Code 67435 SUB INP/OBS CARE 2/35MIN Diagnoses Pancolitis K52.9 Bloody diarrhea R19.7 JOHANNA (acute kidney injury) N17.9 Hypomagnesemia E83.42
[2025-03-07] MEDS: hydroCHLOROthiazide 25 MG TAB PO SCH (10:08)
[2025-03-07] MEDS: lisinopril 20 MG TAB PO SCH (10:09)
[2025-03-07] MEDS: AMOXICILLIN/CLAVULANATE 875 MG TAB PO SCH (18:07)
[2025-03-08 06:32] LABS: Hematocrit (blood only) 24.6 % (37.0-47.0); Hemoglobin 8.7 g/dl (12.0-16.0); Mean Corpuscular Hemoglobin 31.4 pg (25.0-34.0); Mean Corpuscular Hgb Conc 35.4 g/dL (32.0-36.0); Mean Corpuscular Volume 88.8 fL (80.0-100.0); Mean Platelet Volume 10.2 fL (9.4-12.4); Platelet Count 145 K/uL (130-400); RDW Coefficient of Variation 11.1 % (11.5-14.5); RDW Standard Deviation 36.1 fL (36.4-46.3); Red Blood Count 2.77 M/uL (4.20-5.40); White Blood Count 6.71 K/ul (4.8-10.8)
[2025-03-08 07:06] LABS: Calcium 7.9 mg/dl (8.6-10.3); Creatinine Clr Calc Pharmacy 34.6 ml/min; Potassium 3.5 mmol/L (3.5-5.1)
[2025-03-08 07:50] VITALS: RESP 20; TEMP 97.9; O2SAT 96
--- NOTE | 2025-03-08 09:47 | Discharge Summary ---
Date of Service March 08, 2025 Admission HPI Per Admitting Provider Patient is an 84-year-old female with past medical history of hypertension, hypothyroidism, anxiety. Patient presented due to sudden onset nausea and diarrhea that began this morning with associated left lower quadrant abdominal pain. AP CT showed pancolitis and patient was found to have an elevated white blood cell count of 36 with a left shift. Laboratories showed mild JOHANNA with creatinine increased from 1.03 to 1.57 as well as hypomagnesemia suspected to be due to hypovolemia/depletion. Patient seen at bedside. She is frail and appears mildly confused however is alert and oriented. She stated this morning she woke up to feed her cats and felt fine and then all of a sudden she developed sudden onset diarrhea and abdominal pain. She stated her abdominal pain is in her right upper quadrant similar to when she was here in June. She has since developed nausea without vomiting. She denies any blood in her stools, however nursing reports maroon stools have now transitioned to bright red blood filling the bowl. She denies any recent travel or antibiotic use. She denies any recent history of NSAID use. She stated she has never had a colonoscopy before. She denies any fevers, chills, chest pain, shortness of breath. She does not use nicotine or alcohol products. She stated she lives at home with her . She took her medications this morning. She wishes to be full code. Patient stated she gets extremely nauseous and with vomiting when she takes Tylenol. She does have an allergy to opioids however has tolerated morphine well in the past. Spoke with nursing staff regarding patient's bowel movements. They stated she has been having frequent loose bowel movements that have progressed from maroon- colored to bright red blood filling toilet bowl. Patient is hemodynamically stable and hemoglobin is at baseline. Principal Diagnosis C. difficile pancolitis Acute kidney injury Hypokalemia, hypomagnesemia Right lower lobe pneumonia Discharge Exam General: Awake, conversant. Elderly frail looking woman Heart: S1, S2/regular rate and rhythm, no murmur rubs or gallops Lungs: Crackles heard at right base. Normal effort Abdomen: Soft/nondistended. Nontender. No hepatosplenomegaly Extremities: No clubbing/cyanosis. No edema Behavior: Appropriate, cooperative Discharge Data Allergies Allergy/AdvReac Type Severity Reaction Status Date / Time acetaminophen Allergy Unknown Unknown Verified 03/03/25 19:12 codeine Allergy Unknown Unknown Verified 03/03/25 19:12 cyclobenzaprine Allergy Unknown Unknown Verified 03/03/25 19:12 Opioids - Morphine Analogues Allergy Unknown Unknown Verified 03/03/25 19:12 oxycodone Allergy Unknown Unknown Verified 03/03/25 19:12 propoxyphene Allergy Unknown Unknown Verified 03/03/25 19:12 Consultations 03/03/25 20:52 ED Decision to Admit Stat Ordered Studies Abdomen/Pelvis CT 03/03/25 17:51 EXAMINATION: CT of the abdomen and pelvis performed after the administration of IV contrast TECHNIQUE: Helical CT images from the lung bases through the symphysis pubis were obtained with contrast. Coronal and sagittal reformatted images were generated at a workstation for further assessment. Dose reduction techniques were achieved by using automatic exposure control and/or adjustment of mA and/or kV according to patient size and/or use of iterative reconstruction technique. COMPARISON: 06/03/2024 HISTORY: Abdominal pain FINDINGS: Lower chest: No consolidation. No pleural effusion or pneumothorax. Liver: No suspicious liver lesions. Portal veins appear patent. Gallbladder: Cholecystectomy. Pneumobilia is present. Spleen: Normal size. Pancreas: No suspicious pancreatic lesions. The pancreatic duct is not dilated. Adrenal glands: No adrenal nodules. Kidneys: No hydronephrosis or obstructing renal stones. Bladder / Pelvic organs: Surgical clips are seen about both sides of the pelvic sidewall. The endometrial stripe appears thickened up to approximately 0.9 cm in the sagittal plane.. Bowel: There is prominent wall thickening of the large bowel diffusely, most prominently at the descending, sigmoid colon, and rectum. Inflammatory fat stranding and free fluid is seen about the descending colon. There is moderate free fluid also in the pelvis.. The appendix is not visualized. Lymph nodes: No retroperitoneal, mesenteric, or pelvic lymphadenopathy. Peritoneum / Retroperitoneum: No free air Vessels: No infrarenal aortic aneurysm. Heavy aortoiliac calcification. Bones and soft tissues: No suspicious lesion in the bones. Degenerative changes of the spine. IMPRESSION: 1. Pancolitis, most prominently involving the left colon. There is moderate free fluid in the pelvis and extensive fluid about the left colon. 2. Thickness of the endometrial stripe in the sagittal plane of approximately 0.9 cm. Recommend nonemergent pelvic ultrasound. Electronically signed by Grey Schuster 03-03-2025 8:23 PM Chest X-Ray 03/06/25 08:36 XR chest 2V PA/lateral CLINICAL HISTORY: Hypoxia, evaluate for fluid overload COMPARISON STUDY: 01/29/2019 FINDINGS: There is mild cardiomegaly with mild pulmonary vascular congestion. There is patchy opacity at the right mid and lower lung with obscuration of the right hemidiaphragm. There is a possible trace right pleural effusion. No pneumothorax. IMPRESSION: Pneumonia on the right. Recommend follow-up to resolution to rule out underlying lung mass. ACT 112: Positive. There are findings on this exam that require communication between the performing entity and the patient following Patient Test Result I nformation Act ([place] Act 112) guidelines. Electronically signed by: Ezra Serrano M.D. 03/06/2025 9:17 AM 03/03/25 17:51 CT abd pelvis IV con only Stat Hospital Course (1) Pancolitis: (2) Bloody diarrhea: (3) JOHANNA (acute kidney injury): (4) Hypomagnesemia: Plan Patient is an 84-year-old female with past medical history of hypertension, hypothyroidism, anxiety. Patient presented due to sudden onset nausea and diarrhea that began this morning with associated left lower quadrant abdominal pain. AP CT showed pancolitis and patient was found to have an elevated white blood cell count of 36 with a left shift. Laboratories showed mild JOHANNA with creatinine increased from 1.03 to 1.57 as well as hypomagnesemia suspected to be due to hypovolemia/depletion. #Pancolitis - AP CT showed pancolitis with free fluid within the pelvis and left colon. Patient with significant leukocytosis (WC 36 with left shift). Stool cultures negative, however clinically aligns with C. difficile; C. difficile testing reordered and treat empirically with Dificid. Patient with hematochezia; hemodynamically stable and Hgb at baseline. No noted history of inflammatory bowel disease; patient denies ever having colonoscopy. Patient is feeling better overall. Diarrhea resolved. Stools are more formed and less frequent Patient improved with treatment of C. difficile even though C. difficile was negative x 2 Leukocytosis resolved Patient is tolerating solid diet Discontinued IV fluid - blood cultures negative Clinically improved Will discharge her on Dificid to continue for 7 days after antibiotic end date # Right lower lobe pneumonia: Not present on admission Patient would need noted to be hypoxic but she did not feel short of breath. She was requiring 4 L of oxygen Chest x-ray shows a right lung infiltrate She was started on Rocephin and has now improved. Not requiring oxygen anymore Will discharge her on p.o. Augmentin short course. Would not start broad-spectrum antibiotics in the absence of severe symptoms and in the setting of C. difficile. Encouraged the patient to use incentive spirometer #JOHANNA/ hypomagnesemia - 2/2 hypovolemia/volume depletion with significant diarrhea. Magnesium 1.5, other electrolytes stable. CR increased from 1.03 to 1.57, BUN 47 (indicating prerenal cause). - Creatinine trended down Magnesium repleted Resumed lisinopril and hydrochlorothiazide Discontinued IV fluids #HTN stable - Resume hydrochlorothiazide and lisinopril now that JOHANNA has resolved - Resume amlodipine #Hypothyroidism stable, TSH WNL - Resume Synthroid #Anxiety stable - Resume diazepam, hydroxyzine, and meprobamate with bowel rest Discharge to home today Total Time Total Time Spent Total Time Spent (In Minutes): 35 Discharge Plan Discharge Items Patient Disposition: Home - Self-Care Reason For Visit: PANCOLITIS, JOHANNA Discharge Diagnosis: C. difficile pancolitis Acute kidney injury Hypokalemia, hypomagnesemia Right lower lobe pneumonia Condition on Discharge: Fair Activity: Resume your previous activity Non-emergency contact: Primary Care Provider Call non-emergency contact if: you have any medication questions and your symptoms worsen Follow-up/Referrals: Mary Mckeon MD [Primary Care Provider] - Diet: Heart Healthy Addtl Attending Provider Instructions: Advised to follow-up with PCP in 1 week Advised to note that he likely had C. difficile colitis. Pending Studies at Discharge: No Stand-Alone Forms: My [facility] Medications and DC Order Prescriptions: New amoxicillin-pot clavulanate 875-125 mg Tablet 1 tab PO BIDM 2 Days Qty: 4 0RF Dificid 200 mg Tablet 200 mg PO BID 9 Days Qty: 18 0RF Continued atorvastatin 40 mg tablet 40 mg PO DAILY Qty: 90 3RF Rx Instructions: PER EXT MED HX --LAST FILLED 01/17/24 FOR 90 TABS amlodipine 5 mg tablet 5 mg PO DAILY Qty: 90 1RF lisinopril 20 mg tablet 20 mg PO DAILY Qty: 90 1RF Rx Instructions: PER EXT MED HX--LAST FILLED 07/13/23 FOR 90 TABS. diazepam 5 mg tablet 5 mg PO BID PRN (Reason: anxiety) Qty: 60 3RF morphine 15 mg tablet extended release 15 mg PO HS PRN (Reason: severe pain) Qty: 90 0RF levothyroxine 75 mcg tablet 75 mcg PO DAILY Qty: 90 2RF meprobamate 400 mg tablet 400 mg PO .Q4-6XDAY PRN (Reason: pain) Qty: 60 0RF hydrochlorothiazide 12.5 mg tablet 12.5 mg PO DAILY Qty: 90 1RF Rx Instructions: PER EXT MED HX--LAST FILLED 07/13/23 FOR 90 TABS. cholecalciferol (vitamin D3) 2,000 unit capsule 2,000 units PO DAILY Qty: 30 0RF hydroxyzine pamoate 50 mg capsule 50 mg PO Q4H Discharge Orders: Discharge Order (Routine); Ordered 03/08/25 Ordered By: Good Vasquez Admission Data Admit Date/Time: 03/03/25 21:28 Attending Provider: Good Vasquez Admit Provider: Shmuel Garcia Primary Care Provider: Mary Mckeon Other Providers: Shmuel Garcia Other Interventions: Discharge Summary Assessment (RN) Last Done: 03/08/25 10:24
[2025-03-08 10:36] VITALS: BP 125/78
[2025-03-08 11:43] VITALS: PULSE 57
--- NOTE | 2025-03-09 11:38 | Communication Note ---
Date of Service: March 09, 2025 pt has cost prohibitive for Dificid, will try vancomycin po qid for 14 days
== END 2025-03-08 16:16 | disposition home or self-care (01) | DRG 371 ==
LOC: ED 17:30 → 2E 21:28 → SUATTDRO 21:28 → 2E 23:49

== ENCOUNTER 2025-06-26 14:57 | Inpatient (IN) ==
--- NOTE | 2025-06-26 15:30 | Emergency Department Note ---
Impression & Plan JOHANNA (acute kidney injury), Acute encephalopathy, Acute dehydration ED Provider Note NAME: LAURA SOLOMON AGE: 84 SEX: F : 1940 ARRIVES VIA: Ambulance INFORMANT: Patient, EMS/nursing report ED PROVIDER(S): Britton Campbell MD CHIEF COMPLAINT: Altered mental status MEDICAL DECISION MAKING: Patient presents due to concern for confusion. BSG prior to arrival was in the 140s. IV was established and blood work was obtained. CT and chest x-ray also performed along with urinalysis. Patient's blood work shows a white count of 12 with a hemoglobin 11.9 with a normal platelet count. The patient's kidney function does show associated JOHANNA baseline creatinine about 0.8 0.9 but today is 3.1. Patient initially did receive IV fluids but was ordered additional IV fluids. Chest x-ray does not show evidence of obvious pneumonia. CT head unremarkable. Given the patient's acute change in symptoms I did speak with the on-call hospitalist service and the patient was admitted to the medicine service by Dr. Mckeon. Discussion w/ other healthcare providers: Dr. Mckeon inpatient medicine service Prior /Outside records reviewed: None Differential diagnosis: Infection, dehydration, metabolic abnormality, hypo/hyperglycemia, electrolyte imbalance, anemia, UTI, pneumonia, thyroid dysfunction among others were considered. Diagnostics, as interpreted by me: ECG: Normal sinus rhythm, rate of 78, normal intervals, normal axis no ST elevations or TWI. Cardiac monitoring: An order was placed for continuous cardiac monitoring. The monitor shows a rate of 79 with sinus rhythm. Patient was placed on pulse oximetry Medical decision rules: None Imaging studies: I informally interpreted the patient's chest x-ray does not show obvious pneumonia or pneumothorax with formal report to follow. HPI: Patient presents from home after being found out wandering the streets without shoes on and confused. Patient reportedly had a normal BSG and vital signs prior to arrival. The patient is oriented to person. She denies any head neck chest back or abdominal pain. No reported vomiting or diarrhea. PAST MEDICAL HISTORY: See Below PAST SURGICAL HISTORY: See Below SOCIAL HISTORY: See Below HOME MEDICATIONS: See Below ALLERGIES: See Below VITALS: See Below PHYSICAL EXAMINATION: GENERAL: NAD, non-toxic. EYE EXAM: Normal conjunctiva. PERRL, no anisocoria and EOM's grossly intact w/o pain. OROPHARYNX: Dry mucus membranes, grossly normal dentition. NECK: Trachea midline, no stridor. LUNGS: Clear to auscultation. Normal chest wall mechanics. HEART: NSR, no MRG. ABDOMEN: Abdomen soft, non-tender, no masses, no rebound or guarding. BACK: No CVA TTP. SKIN: No rashes and no bruising. UPPER EXTREMITIES: Upper extremities are grossly normal. LOWER EXTREMITIES: Grossly normal, no edema. NEURO EXAM: Awake and alert, follows commands, no obvious facial asymmetry, normal speech, moves all 4 extremities. Past Med/Surg History Problem List (Updated 06/26/25 @ 23:48 by Britton Campbell MD) Acute dehydration (Acute) Acute encephalopathy (Acute) JOHANNA (acute kidney injury) (Acute) Leucocytosis Acute encephalopathy Abnormal finding on CT scan Encounter for examination following treatment at hospital Pneumonia Hypomagnesemia JOHANNA (acute kidney injury) Pancolitis Bloody diarrhea (Acute) Colitis (Acute) HTN (hypertension) (Acute) Elevated bilirubin (Acute) Transaminitis (Acute) Impacted cerumen of both ears Routine health maintenance (Chronic) Vitamin D deficiency (Chronic) Temporomandibular joint dysfunction syndrome (Chronic) Hypothyroidism (Chronic) Hyperlipidemia (Chronic) Elevated blood sugar level (Acute) History of mandibular surgery No pertinent family history HTN (hypertension) TMJ (dislocation of temporomandibular joint) Medical History Vomiting Abdominal pain Surgical History H/O oophorectomy Family History Mother Hypertension Denies family history of Ovarian cancer Prostate cancer Diabetes Myocardial infarction Breast cancer Colorectal cancer Social History Smoking Status: Never smoker Second Hand Exposure: Yes (As a child. ); Do You Dip or Chew Tobacco: No; Hx Alcohol Use: No (unknown) Hx Substance Use: No Preferred Language: Danish Communication Ability: Effective Communication Ability Comment: patient hard to stay awake, doesn't answer most assessment questions Visual Impairment: Limited Hearing Ability: Normal Roll Handler Required: No Beliefs That Will Affect Care: None marital status: Current Living Situation: Spouse current occupational status: retired How many Children do You have: 3 Feels Safe at Home: Yes Childhood Exposure to Second-Hand Smoke: Yes Diet: regular caffeine: Yes (coffee) during the past year weight has: remained stable Dental Care, Regularly: No Physical Activity Frequency: 1-2 Times per Week Seatbelt Use: sometimes Sunscreen Use: No Do you think of yourself as: straight/heterosexual Sexual Activity: has been sexually active, but not for at least 12 months Gender Identity: Female Assistive Devices: Cane and Walker Allergies Allergies Allergy/AdvReac Type Severity Reaction Status Date / Time acetaminophen Allergy Unknown Unknown Verified 03/18/25 11:39 codeine Allergy Unknown Unknown Verified 03/18/25 11:39 cyclobenzaprine Allergy Unknown Unknown Verified 03/18/25 11:39 Opioids - Morphine Analogues Allergy Unknown Unknown Verified 03/18/25 11:39 oxycodone Allergy Unknown Unknown Verified 03/18/25 11:39 propoxyphene Allergy Unknown Unknown Verified 03/18/25 11:39 Home Meds Home Medications Medication Instructions Recorded Confirmed hydroxyzine pamoate 50 mg capsule 0 mg PO Q4H 03/03/25 06/26/25 Previous Rx's Medication Instructions Recorded cholecalciferol (vitamin D3) 50 2,000 units PO DAILY #30 caps 05/13/19 mcg (2,000 unit) capsule levothyroxine 75 mcg tablet 75 mcg PO DAILY #90 tabs 02/04/25 lisinopril 20 mg tablet 20 mg PO DAILY #90 tabs 03/16/25 diazepam 5 mg tablet 5 mg PO BID PRN anxiety #60 tabs 03/17/25 hydrochlorothiazide 12.5 mg tablet 12.5 mg PO DAILY #90 tabs 03/18/25 amlodipine 5 mg tablet 5 mg PO DAILY #90 tabs 04/03/25 meprobamate 400 mg tablet 400 mg PO .Q4-6XDAY PRN pain #60 05/13/25 tabs atorvastatin 40 mg tablet 40 mg PO DAILY #90 tabs 06/23/25 morphine 15 mg tablet,extended 15 mg PO HS PRN severe pain #90 06/23/25 release tabs Results & Data (ED) Vital Signs Vital Signs - 24 hr 06/26/25 15:11 06/26/25 15:52 06/26/25 16:08 Temperature 36.9 C Temperature Source Oral Pulse Rate 85 81 Pulse Rate [Apical] Respiratory Rate 17 Respiratory Effort / Characteristics Non-Labored Respiratory Depth Normal Respiratory Pattern Regular Blood Pressure 131/64 Blood Pressure [Right Arm] Blood Pressure Mean 86 Blood Pressure Mean [Right Arm] Pulse Oximetry 95 97 Oxygen Delivery Method Room Air Room Air Sepsis Recent Fever Within 48 Hours No Sepsis New/Unexplained Change in Mental Status No Sepsis Action Taken by Nursing No Action Required 06/26/25 16:28 06/26/25 16:28 06/26/25 16:42 Temperature Temperature Source Pulse Rate 78 82 Pulse Rate [Apical] 91 H Respiratory Rate 24 13 18 Respiratory Effort / Characteristics Respiratory Depth Respiratory Pattern Blood Pressure 143/60 H Blood Pressure [Right Arm] 143/60 H Blood Pressure Mean 88 Blood Pressure Mean [Right Arm] 87 Pulse Oximetry 98 93 92 Oxygen Delivery Method Room Air Sepsis Recent Fever Within 48 Hours Sepsis New/Unexplained Change in Mental Status Sepsis Action Taken by Nursing 06/26/25 17:24 Temperature Temperature Source Pulse Rate 98 H Pulse Rate [Apical] Respiratory Rate 16 Respiratory Effort / Characteristics Respiratory Depth Respiratory Pattern Blood Pressure Blood Pressure [Right Arm] Blood Pressure Mean Blood Pressure Mean [Right Arm] Pulse Oximetry 94 Oxygen Delivery Method Sepsis Recent Fever Within 48 Hours Sepsis New/Unexplained Change in Mental Status Sepsis Action Taken by Detention Medications Current Medication List: was personally reviewed by me Laboratory Data Attestation: I reviewed the patient's lab results. 06/26/25 15:17 06/26/25 15:17 Lab Results 06/26/25 Range/Units 15:17 WBC 12.67 H (4.8-10.8) K/ul RBC 3.78 L (4.20-5.40) M/uL Hgb 11.9 L (12.0-16.0) g/dl Hct 35.1 L (37.0-47.0) % MCV 92.9 (80.0-100.0) fL MCH 31.5 (25.0-34.0) pg MCHC 33.9 (32.0-36.0) g/dL RDW Std Deviation 43.5 (36.4-46.3) fL RDW Coeff of Mj 12.7 (11.5-14.5) % Plt Count 210 (130-400) K/uL MPV 10.8 (9.4-12.4) fL Immature Gran % (Auto) 0.4 % Neut % (Auto) 85.8 % Lymph % (Auto) 5.8 % Holmes % (Auto) 5.2 % Eos % (Auto) 2.3 % Baso % (Auto) 0.5 % Neut # (Auto) 10.87 H (1.40-6.50) K/uL Lymph # (Auto) 0.74 L (1.20-3.40) K/uL Holmes # (Auto) 0.66 H (0.11-0.59) K/uL Eos # (Auto) 0.29 (0.00-0.50) K/uL Baso # (Auto) 0.06 (0.00-0.20) K/uL Immature Gran # (Auto) 0.05 (0.01-0.20) K/uL Sodium 141 (136-145) mmol/L Potassium 3.8 (3.5-5.1) mmol/L Chloride 107 (98-107) mmol/L Carbon Dioxide 23 (21-32) mmol/L Anion Gap 11 (3-11) BUN 63 H (6-23) mg/dl Creatinine 3.18 H (0.6-1.2) mg/dl Est Cr Clr Drug Dosing 9.8 ml/min eGFR 14.03 BUN/Creatinine Ratio 19.8 (10-20) Glucose 145 H (70-99(Fasting)) mg/dl Calcium 9.4 (8.6-10.3) mg/dl Magnesium 1.6 L (1.7-2.4) mg/dl Total Bilirubin 0.5 (0.2-1.0) mg/dl AST 18 (13-39) U/L ALT 10 (7-52) U/L Alkaline Phosphatase 84 (34-104) U/L Troponin I High Sens 16.7 H (0-14) pg/ml Total Protein 7.4 (6.0-8.3) gm/dl Albumin 3.8 (3.4-5.0) gm/dl Globulin 3.6 (2.5-4.0) gm/dl Albumin/Globulin Ratio 1.1 (0.9-2) TSH 0.316 (0.300-4.500) uIu/ml Administered Medications Acetaminophen (Acetaminophen 325 Mg Tab) 650 mg PO Q4H PRN PRN Reason: pain/fever Stop: 07/26/25 19:27 Last Admin: 06/26/25 23:40 Dose: 650 mg Documented By: BALBINA Sodium Chloride (Nss) 1,000 mls @ 80 mls/hr IV .[id number] [facility] Stop: 06/29/25 19:27 Last Admin: 06/26/25 20:25 Dose: 80 mls/hr Documented By: DONNA Discontinued Medications Sodium Chloride (Nss) 500 mls @ 999 mls/hr IV .Q31M [facility] Stop: 06/26/25 16:15 Last Infusion: 06/26/25 17:08 Dose: Infused Documented By: Admin: 06/26/25 15:55 Dose: 999 mls/hr Documented By: SANTOS Sodium Chloride (Nss) 1,000 mls @ 999 mls/hr IV .Q1H1M ONE Stop: 06/26/25 17:37 Last Infusion: 06/26/25 20:25 Dose: Infused Documented By: Admin: 06/26/25 17:11 Dose: 999 mls/hr Documented By: DONNA Piperacillin Sod/Tazobactam Sod (Zosyn) 4.5 gm in 100 mls @ 200 mls/hr IV NOW STA; Protocol Stop: 06/26/25 20:03 Last Infusion: 06/26/25 21:03 Dose: Infused Documented By: Admin: 06/26/25 20:25 Dose: 200 mls/hr Documented By: DONNA Imaging Data Radiologist's Impression: Chest X-Ray 06/26/25 15:40 EXAM: Portable AP chest radiograph TECHNIQUE: AP portable radiograph of the chest was obtained. INDICATION: Shortness of breath Comparison: Chest radiograph April 03, 2025. FINDINGS: LINES and TUBES: None CARDIOVASCULAR: Cardiac silhouette is stably and mildly enlarged in size. Atherosclerosis of the thoracic aorta LUNGS/PLEURA: No focal consolidation identified. Chronic interstitial lung changes. No significant pleural fluid. No discernible pneumothorax. OSSEOUS/OTHER: No displaced acute osseous process identified. IMPRESSION: No radiographic evidence of acute cardiopulmonary process. Electronically signed by Alfredo Mcleod 06-26-2025 4:[address] 06/26/25 15:40 Clinical History: Confusion Technique: Axial computed tomography images were obtained of the brain without intravenous contrast. Findings: There is diffuse cerebral atrophy, within expected limits for the patient's age. Areas of decreased attenuation are seen within the periventricular white matter, likely representing chronic small vessel ischemic disease. There is no definite sign of acute or old infarction. No intracranial hemorrhage is evident. No definite mass lesion is seen on this noncontrast examination. There is no midline shift or other form of herniation. No hydrocephalus is seen. No fracture is identified. The orbits and the visualized paranasal sinuses appear unremarkable. The mastoid air cells appear clear. Impression: 1. Cerebral atrophy and chronic small vessel ischemic disease 2. Otherwise unremarkable noncontrast CT of the brain Electronically signed by Andres Khan 06-26-2025 4:29 PM Discharge Plan Visit Data Chief Complaint: Altered Mental Status ED Provider: Britton Campbell Discharge Problem: JOHANNA (acute kidney injury), Acute encephalopathy, Acute dehydration Patient Disposition: Admitted As Inpatient Condition: Good Discharge Instructions Interventions: ED Discharge Assessment Last Done: 06/26/25 19:28
[2025-06-26 15:50] LABS: Hematocrit (blood only) 35.1 % (37.0-47.0); Hemoglobin 11.9 g/dl (12.0-16.0); Immature Granulocytes # (auto) 0.05 K/uL (0.01-0.20); Immature Granulocytes % (auto) 0.4 %; Mean Corpuscular Hemoglobin 31.5 pg (25.0-34.0); Mean Corpuscular Volume 92.9 fL (80.0-100.0); Platelet Count 210 K/uL (130-400); RDW Standard Deviation 43.5 fL (36.4-46.3); Red Blood Count 3.78 M/uL (4.20-5.40); White Blood Count 12.67 K/ul (4.8-10.8)
[2025-06-26] MEDS: SODIUM CHLORIDE 0.9% 500 ML IV SCH (15:55)
[2025-06-26 16:16] LABS: Alanine Aminotransferase 10.0 U/L (7-52); Albumin Globulin Ratio 1.1 (0.9-2); Alkaline Phosphatase 84.0 U/L (34-104); Anion Gap 11.0 (3-11); Bilirubin,Total 0.5 mg/dl (0.2-1.0); Blood Urea Nitrogen 63.0 mg/dl (6-23); Calcium 9.4 mg/dl (8.6-10.3); Carbon Dioxide 23.0 mmol/L (21-32); Chloride 107.0 mmol/L (98-107); Creatinine Clr Calc Pharmacy 9.8 ml/min; Globulin 3.6 gm/dl (2.5-4.0); Glucose 145.0 mg/dl (70-99(Fasting)); Magnesium 1.6 mg/dl (1.7-2.4); Potassium 3.8 mmol/L (3.5-5.1); Sodium 141.0 mmol/L (136-145); Total Protein 7.4 gm/dl (6.0-8.3)
--- NOTE | 2025-06-26 16:27 | XRay Report ---
EXAM: Portable AP chest radiograph TECHNIQUE: AP portable radiograph of the chest was obtained. INDICATION: Shortness of breath Comparison: Chest radiograph April 03, 2025. FINDINGS: LINES and TUBES: None CARDIOVASCULAR: Cardiac silhouette is stably and mildly enlarged in size. Atherosclerosis of the thoracic aorta LUNGS/PLEURA: No focal consolidation identified. Chronic interstitial lung changes. No significant pleural fluid. No discernible pneumothorax. OSSEOUS/OTHER: No displaced acute osseous process identified. IMPRESSION: No radiographic evidence of acute cardiopulmonary process. Electronically signed by Alfredo Mcleod 06-26-2025 4:27 PM
[2025-06-26 16:30] LABS: Appearance Urine Clear (Clear); Bacteria Urine Automated None Seen (None Seen); Glucose Urine UA Negative (Negative); RBC Urine Automated 0-2 /hpf (0-2); WBC Urine Automated 0-5 /hpf (0-5)
[2025-06-26 16:32] LABS: Thyroid Stimulating Hormone 0.316 uIu/ml (0.300-4.500)
--- NOTE | 2025-06-26 16:35 | CT Scan Report ---
Clinical History: Confusion Technique: Axial computed tomography images were obtained of the brain without intravenous contrast. Findings: There is diffuse cerebral atrophy, within expected limits for the patient's age. Areas of decreased attenuation are seen within the periventricular white matter, likely representing chronic small vessel ischemic disease. There is no definite sign of acute or old infarction. No intracranial hemorrhage is evident. No definite mass lesion is seen on this noncontrast examination. There is no midline shift or other form of herniation. No hydrocephalus is seen. No fracture is identified. The orbits and the visualized paranasal sinuses appear unremarkable. The mastoid air cells appear clear. Impression: 1. Cerebral atrophy and chronic small vessel ischemic disease 2. Otherwise unremarkable noncontrast CT of the brain Electronically signed by Andres Khan 06-26-2025 4:29 PM
[2025-06-26] MEDS: SODIUM CHLORIDE 0.9% 1,000 ML IV ONE (17:11)
--- NOTE | 2025-06-26 17:37 | History & Physical Report ---
Date of Service June 26, 2025 Assessment & Plan (1) Acute encephalopathy: (2) Leucocytosis: (3) JOHANNA (acute kidney injury): (4) Hypothyroidism: (5) HTN (hypertension): Plan This is a 85-year-old female who was brought to the hospital after she was found wandering in her neighborhood. She was noted to have JOHANNA on admission. CT scan of the head did not show any acute abnormalities 1. Acute encephalopathy: Etiology is uncertain, patient was found wandering in her neighborhood. Found to have JOHANNA, serum creatinine 3.8 from a normal baseline just 3 months prior. Started on IV normal saline 85 cc/h 1 is to 1 sitter 2Hypertension: Blood pressure is under good control On lisinopril at home and hydrochlorothiazide, will hold given JOHANNA Continue to monitor blood pressure for now. 3.Hypothyroidism: Continue home medication 4.Leukocytosis: Etiology is uncertain, could be from stress Blood and urine cultures obtained Will start empiric IV Zosyn Full code Admit to [facility] History of Present Illness Chief Complaint: Encephalopathy Primary Care Provider: Mary Mckeon MD Pleasant 85-year-old female with a history of hypertension, hypothyroidism who was brought to the hospital today after found wandering in her neighborhood. Upon arrival at the ED, she was confused and no history could could be obtained from her. In the ED vital signs were normal, CT scan of the head showed only chronic changes, WBC was 12,000 and serum creatinine was 3.18 from a baseline of 0.90 just 3 months prior. She was given a bolus of IV fluids and will be admitted to the hospital further management. Allergies Allergy/AdvReac Type Severity Reaction Status Date / Time acetaminophen Allergy Unknown Unknown Verified 03/18/25 11:39 codeine Allergy Unknown Unknown Verified 03/18/25 11:39 cyclobenzaprine Allergy Unknown Unknown Verified 03/18/25 11:39 Opioids - Morphine Analogues Allergy Unknown Unknown Verified 03/18/25 11:39 oxycodone Allergy Unknown Unknown Verified 03/18/25 11:39 propoxyphene Allergy Unknown Unknown Verified 03/18/25 11:39 Home Medications Medication Instructions Recorded Confirmed Type cholecalciferol (vitamin D3) 50 2,000 units PO DAILY #30 caps 05/13/19 06/26/25 Rx mcg (2,000 unit) capsule levothyroxine 75 mcg tablet 75 mcg PO DAILY #90 tabs 02/04/25 06/26/25 Rx hydroxyzine pamoate 50 mg capsule 0 mg PO Q4H 03/03/25 06/26/25 History lisinopril 20 mg tablet 20 mg PO DAILY #90 tabs 03/16/25 06/26/25 Rx diazepam 5 mg tablet 5 mg PO BID PRN anxiety #60 tabs 03/17/25 06/26/25 Rx hydrochlorothiazide 12.5 mg tablet 12.5 mg PO DAILY #90 tabs 03/18/25 06/26/25 Rx amlodipine 5 mg tablet 5 mg PO DAILY #90 tabs 04/03/25 06/26/25 Rx meprobamate 400 mg tablet 400 mg PO .Q4-6XDAY PRN pain #60 05/13/25 06/26/25 Rx tabs atorvastatin 40 mg tablet 40 mg PO DAILY #90 tabs 06/23/25 06/26/25 Rx morphine 15 mg tablet,extended 15 mg PO HS PRN severe pain #90 06/23/25 06/26/25 Rx release tabs Past Med/Surg History Problem List (Updated 06/26/25 @ 17:35 by Isaias Mckeon MD) Leucocytosis Acute encephalopathy Abnormal finding on CT scan Encounter for examination following treatment at hospital Pneumonia Hypomagnesemia JOHANNA (acute kidney injury) Pancolitis Bloody diarrhea (Acute) Colitis (Acute) HTN (hypertension) (Acute) Elevated bilirubin (Acute) Transaminitis (Acute) Impacted cerumen of both ears Routine health maintenance (Chronic) Vitamin D deficiency (Chronic) Temporomandibular joint dysfunction syndrome (Chronic) Hypothyroidism (Chronic) Hyperlipidemia (Chronic) Elevated blood sugar level (Acute) History of mandibular surgery No pertinent family history HTN (hypertension) TMJ (dislocation of temporomandibular joint) Medical History Vomiting Abdominal pain Surgical History H/O oophorectomy Family History Mother Hypertension Denies family history of Ovarian cancer Prostate cancer Diabetes Myocardial infarction Breast cancer Colorectal cancer Social History Smoking Status: Never smoker Second Hand Exposure: Yes (As a child. ); Do You Dip or Chew Tobacco: No; Hx Alcohol Use: No (unknown) Hx Substance Use: No Preferred Language: Chinese Communication Ability: Effective Communication Ability Comment: patient hard to stay awake, doesn't answer most assessment questions Visual Impairment: Limited Hearing Ability: Normal Imcu Nurse Required: No Beliefs That Will Affect Care: None marital status: Current Living Situation: Spouse current occupational status: retired How many Children do You have: 3 Feels Safe at Home: Yes Childhood Exposure to Second-Hand Smoke: Yes Diet: regular caffeine: Yes (coffee) during the past year weight has: remained stable Dental Care, Regularly: No Physical Activity Frequency: 1-2 Times per Week Seatbelt Use: sometimes Sunscreen Use: No Do you think of yourself as: straight/heterosexual Sexual Activity: has been sexually active, but not for at least 12 months Gender Identity: Female Assistive Devices: Cane and Walker Review of Systems Review of Systems: unable to obtain Physical Exam Physical Exam: The patient is awake, alert confused HEENT--PERRL, EOMI, mucous membranes and oropharynx mildly dry Neck--supple. No JVD. No bruits. Thyroid normal, trachea midline, no adenopathy. Heart--normal S1 and S2. No murmurs, rubs or gallops. Lungs--clear bilaterally, no respiratory distress, no accessory muscle use. Abdomen--normal bowel sounds and soft. Extremities--no cyanosis or clubbing. No edema. Dermatologic--normal skin turgor, normal color, no abnormal lymph nodes, no rash. Neurologic--confused Rheumatologic--normal range of motion. Psychiatric--normal affect. Results & Data Results & Data Vital Signs (Past 12 Hours) Vital Signs Temp Pulse Resp BP Pulse Ox O2 Del Method 06/26/25 16:08 81 06/26/25 15:52 97 Room Air 06/26/25 15:11 98.5 F 85 17 131/64 95 Room Air PG Care Time/CCT Total # of Minutes Spent Total Time Spent with Patient: Total time spent is greater than 50% in coordination of care (as documented) at patient's floor/unit and/or counseling patient: Coding Level of Care Code 83284 INT INP/OBS CARE 3/75MIN Diagnoses Acute encephalopathy G93.40 Leucocytosis D72.829 JOHANNA (acute kidney injury) N17.9 Acquired hypothyroidism E03.9 Hypothyroidism type: acquired Primary hypertension I10 Hypertension type: primary hypertension Time Spent (min) 75 (4) Hypothyroidism Hypothyroidism type: acquired Qualified Code(s): E03.9 - Hypothyroidism, unspecified (5) HTN (hypertension) Hypertension type: primary hypertension Qualified Code(s): I10 - Essential (primary) hypertension
--- NOTE | 2025-06-26 19:47 | Electrocardiogram Report ---
Test Reason : Blood Pressure : */* mmHG Vent. Rate : 78 BPM Atrial Rate : 78 BPM P-R Int : 152 ms QRS Dur : 82 ms QT Int : 350 ms P-R-T Axes : 54 44 28 degrees QTcB Int : 399 ms Normal sinus rhythm Normal ECG When compared with ECG of 03-Mar-2025 23:35, No significant change was found Confirmed by Edgar Fuller ([id number]) on 06/26/2025 7:46:56 PM Referred By: REFERRED SELF Confirmed By: Edgar Fuller
[2025-06-26] MEDS: 4.5GM X1 IV STA (20:25)
[2025-06-26] MEDS: SODIUM CHLORIDE 0.9% 1,000 ML IV SCH (20:25)
[2025-06-26] MEDS: ACETAMINOPHEN 325 MG TAB PO PRN (23:40)
[2025-06-27] MEDS: MELATONIN 3 MG TAB PO PRN (02:08)
[2025-06-27] MEDS: LEVOTHYROXINE SODIUM 75 MCG TABLET PO SCH (07:33)
[2025-06-27 09:01] LABS: Hematocrit (blood only) 36.8 % (37.0-47.0); Hemoglobin 12.3 g/dl (12.0-16.0); Mean Corpuscular Hemoglobin 30.5 pg (25.0-34.0); Mean Corpuscular Volume 91.3 fL (80.0-100.0); Platelet Count 209 K/uL (130-400); RDW Standard Deviation 41.3 fL (36.4-46.3); Red Blood Count 4.03 M/uL (4.20-5.40); White Blood Count 12.70 K/ul (4.8-10.8)
[2025-06-27 09:17] LABS: Anion Gap 10.0 (3-11); Blood Urea Nitrogen 48.0 mg/dl (6-23); Calcium 9.2 mg/dl (8.6-10.3); Carbon Dioxide 22.0 mmol/L (21-32); Chloride 109.0 mmol/L (98-107); Creatinine Clr Calc Pharmacy 16.4 ml/min; Glucose 145.0 mg/dl (70-99(Fasting)); Potassium 3.8 mmol/L (3.5-5.1); Sodium 141.0 mmol/L (136-145)
--- NOTE | 2025-06-27 09:55 | Hospitalist Progress Note ---
Date of Service June 27, 2025 Assessment & Plan (1) Acute encephalopathy: (2) Leucocytosis: (3) JOHANNA (acute kidney injury): (4) Hypothyroidism: (5) HTN (hypertension): Plan This is a 85-year-old female who was brought to the hospital after she was found wandering in her neighborhood. She was noted to have JOHANNA on admission. CT scan of the head did not show any acute abnormalities 1. Acute encephalopathy: Etiology is uncertain, patient was found wandering in her neighborhood. Found to have JOHANNA, serum creatinine 3.8 from a normal baseline just 3 months prior. Started on IV normal saline 85 cc/h, however, patient would not let them keep her IV, she kept ripping it off 1 is to 1 sitter Will give her zyprexa IM 5mg will reorder the fluids once the zyprexa kicks in 2Hypertension: Blood pressure is under good control On lisinopril at home and hydrochlorothiazide, will hold given JOHANNA Continue to monitor blood pressure for now. 3.Hypothyroidism: Continue home medication 4.Leukocytosis: Etiology is uncertain, could be from stress Blood and urine cultures obtained Will start empiric IV Zosyn Full code Admit to [facility] Admission and Anticipated Discharge Date Admission Date: June 26, 2025 Subjective patient is awake, but agitated, she would not keep her IV line, so she is not eating and drinking and her IV fluid is off Review of Systems Review of Systems: unable to obtain Physical Exam Physical Exam: The patient is awake, alert confused HEENT--PERRL, EOMI, mucous membranes and oropharynx mildly dry Neck--supple. No JVD. No bruits. Thyroid normal, trachea midline, no adenopathy. Heart--normal S1 and S2. No murmurs, rubs or gallops. Lungs--clear bilaterally, no respiratory distress, no accessory muscle use. Abdomen--normal bowel sounds and soft. Extremities--no cyanosis or clubbing. No edema. Dermatologic--normal skin turgor, normal color, no abnormal lymph nodes, no rash. Neurologic--confused Rheumatologic--normal range of motion. Psychiatric--normal affect. Results & Data Results & Data Vital Signs (Past 12 Hours) Vital Signs Pulse Pulse Resp BP Pulse Ox O2 Del Method 06/27/25 07:45 Room Air 06/27/25 07:45 88 20 149/68 H 98 Room Air 06/27/25 07:30 88 20 149/68 H 98 Room Air 06/27/25 07:16 83 06/27/25 04:00 79 16 148/46 H 95 Room Air 06/27/25 03:16 79 16 148/46 H 95 Room Air 06/26/25 23:09 86 06/26/25 22:15 86 14 06/26/25 22:00 82 13 06/26/25 21:54 81 14 PG Care Time/CCT Total # of Minutes Spent Total Time Spent with Patient: Total time spent is greater than 50% in coordination of care (as documented) at patient's floor/unit and/or counseling patient: Coding Level of Care Code 02459 SUB INP/OBS CARE 235MIN Diagnoses Acute encephalopathy G93.40 Leucocytosis D72.829 JOHANNA (acute kidney injury) N17.9 Acquired hypothyroidism E03.9 Hypothyroidism type: acquired Primary hypertension I10 Hypertension type: primary hypertension Time Spent (min) 35 (4) Hypothyroidism Hypothyroidism type: acquired Qualified Code(s): E03.9 - Hypothyroidism, unspecified (5) HTN (hypertension) Hypertension type: primary hypertension Qualified Code(s): I10 - Essential (primary) hypertension
[2025-06-27] MEDS: PIPERACILLIN/TAZOBACTAM 4.5 GM/100 ML BAG IV SCH (12:29)
[2025-06-28] MEDS: PNEUMOCOCCAL VACCINE (PCV20) 20-VAL CONJ-DIP CRM/PF 0.5 ML SYR IM ONE (08:45)
[2025-06-28 08:53] LABS: Hematocrit (blood only) 37.8 % (37.0-47.0); Hemoglobin 12.5 g/dl (12.0-16.0); Mean Corpuscular Hemoglobin 29.8 pg (25.0-34.0); Mean Corpuscular Volume 90.2 fL (80.0-100.0); Platelet Count 252 K/uL (130-400); RDW Standard Deviation 41.3 fL (36.4-46.3); Red Blood Count 4.19 M/uL (4.20-5.40); White Blood Count 11.58 K/ul (4.8-10.8)
[2025-06-28 09:09] LABS: Anion Gap 7.0 (3-11); Blood Urea Nitrogen 37.0 mg/dl (6-23); Calcium 9.3 mg/dl (8.6-10.3); Carbon Dioxide 26.0 mmol/L (21-32); Chloride 109.0 mmol/L (98-107); Creatinine Clr Calc Pharmacy 18.5 ml/min; Glucose 127.0 mg/dl (70-99(Fasting)); Potassium 3.4 mmol/L (3.5-5.1); Sodium 142.0 mmol/L (136-145)
--- NOTE | 2025-06-28 09:52 | Hospitalist Progress Note ---
Date of Service June 28, 2025 Assessment & Plan (1) Acute encephalopathy: (2) Leucocytosis: (3) JOHANNA (acute kidney injury): (4) Hypothyroidism: (5) HTN (hypertension): Plan This is a 85-year-old female who was brought to the hospital after she was found wandering in her neighborhood. She was noted to have JOHANNA on admission. CT scan of the head did not show any acute abnormalities 1. Acute encephalopathy: Etiology is uncertain, most likely dehydration, patient was found wandering in her neighborhood. Found to have JOHANNA, serum creatinine 3.8 from a normal baseline just 3 months prior. Started on IV normal saline 85 cc/h, however, patient would not let them keep her IV, she kept ripping it off 1 is to 1 sitter PRN zyprexa for agitation 2Hypertension: Blood pressure is under good control On lisinopril at home and hydrochlorothiazide, will hold given JOHANNA Continue to monitor blood pressure for now. 3.Hypothyroidism: Continue home medication 4.Leukocytosis: Etiology is uncertain, could be from stress Blood and urine cultures obtained Will start empiric IV Zosyn 5 Dementia: I spoke to the daughter Pita, who says her mom has dementia She lives by herself at [facility], but has refused going to [facility], where her currently is I discussed with her and she agrees that her mom is not safe to be by herself She agrees to revisit the issue with her in a couple of days Full code Admit to [facility] Disposition: patient has dementia, and lives by herself, she is not a safe discharge home. She has refused for the daughter to be her POA Admission and Anticipated Discharge Date Admission Date: June 26, 2025 Subjective patient is awake, she is dressed up and" ready to go' Review of Systems Review of Systems: unreliable Physical Exam Physical Exam: The patient is awake, alert confused HEENT--PERRL, EOMI, mucous membranes and oropharynx mildly dry Neck--supple. No JVD. No bruits. Thyroid normal, trachea midline, no adenopathy. Heart--normal S1 and S2. No murmurs, rubs or gallops. Lungs--clear bilaterally, no respiratory distress, no accessory muscle use. Abdomen--normal bowel sounds and soft. Extremities--no cyanosis or clubbing. No edema. Dermatologic--normal skin turgor, normal color, no abnormal lymph nodes, no rash. Neurologic--confused Rheumatologic--normal range of motion. Psychiatric--normal affect. Results & Data Results & Data Vital Signs (Past 12 Hours) Vital Signs Temp Pulse Resp BP Pulse Ox O2 Del Method 06/28/25 08:00 97.5 F L 73 18 120/73 100 Room Air PG Care Time/CCT Total # of Minutes Spent Total Time Spent with Patient: Total time spent is greater than 50% in coordination of care (as documented) at patient's floor/unit and/or counseling patient: Coding Level of Care Code 23061 SUB INP/OBS CARE 2/35MIN Diagnoses Acute encephalopathy G93.40 Leucocytosis D72.829 JOHANNA (acute kidney injury) N17.9 Acquired hypothyroidism E03.9 Hypothyroidism type: acquired Primary hypertension I10 Hypertension type: primary hypertension Time Spent (min) 35 (4) Hypothyroidism Hypothyroidism type: acquired Qualified Code(s): E03.9 - Hypothyroidism, unspecified (5) HTN (hypertension) Hypertension type: primary hypertension Qualified Code(s): I10 - Essential (primary) hypertension
[2025-06-28] MEDS: OLANZAPINE 2.5 MG TAB PO SCH (09:55)
[2025-06-28] MEDS ORDERED: [UNRECOGNIZED DRUG - OTHER] PO PRN (17:13)
--- NOTE | 2025-06-29 08:28 | Hospitalist Progress Note ---
Date of Service June 29, 2025 Assessment & Plan (1) Acute encephalopathy: (2) Leucocytosis: (3) JOHANNA (acute kidney injury): (4) Hypothyroidism: (5) HTN (hypertension): Plan This is a 85-year-old female who was brought to the hospital after she was found wandering in her neighborhood. She was noted to have JOHANNA on admission. CT scan of the head did not show any acute abnormalities # Acute encephalopathy:Leukocytosis concern for infection poa: empiric IV Zosyn now stopped JOHANNA, serum creatinine 3.8 from a normal baseline just 3 months prior. Started on IV normal saline 85 cc/h, however, patient would not let them keep her IV, she kept ripping it off 1 is to 1 sitter PRN zyprexa for agitation/delerium Dementia: I spoke to the daughter Pita, who says her mom has dementia She lives by herself at [facility], but has refused going to [facility], where her currently is I discussed with her and she agrees that her mom is not safe to be by herself She agrees to revisit the issue with her in a couple of days #Hypertension: Blood pressure is under good control On lisinopril at home and hydrochlorothiazide, will hold given JOHANNA Continue to monitor blood pressure for now. #Hypothyroidism: Continue home medication Full code Admit to [facility] Disposition: patient has dementia, and lives by herself, she is not a safe discharge home. She has refused for the daughter to be her POA Admission and Anticipated Discharge Date Admission Date: June 26, 2025 Subjective pt was sleeping in the morning, no complaints oriented to person, agitated easily Physical Exam Physical Exam: NO distress except from memory and emotional unlabored breathing ' cardiac is regular Results & Data Results & Data Laboratory Results review cbc, mild anemia review chemistry low potassium augmented po PG Care Time/CCT Total # of Minutes Spent Total Time Spent with Patient: Total time spent is greater than 50% in coordination of care (as documented) at patient's floor/unit and/or counseling patient: Coding Level of Care Code 77227 SUB INP/OBS CARE 2/35MIN Diagnoses Acute encephalopathy G93.40 Leucocytosis D72.829 JOHANNA (acute kidney injury) N17.9 Acquired hypothyroidism E03.9 Hypothyroidism type: acquired Primary hypertension I10 Hypertension type: primary hypertension (4) Hypothyroidism Hypothyroidism type: acquired Qualified Code(s): E03.9 - Hypothyroidism, unspecified (5) HTN (hypertension) Hypertension type: primary hypertension Qualified Code(s): I10 - Essential ( primary) hypertension
[2025-06-29 08:36] LABS: Hematocrit (blood only) 31.4 % (37.0-47.0); Hemoglobin 10.7 g/dl (12.0-16.0); Mean Corpuscular Hemoglobin 30.3 pg (25.0-34.0); Mean Corpuscular Volume 89.0 fL (80.0-100.0); Platelet Count 190 K/uL (130-400); RDW Standard Deviation 41.1 fL (36.4-46.3); Red Blood Count 3.53 M/uL (4.20-5.40); White Blood Count 6.61 K/ul (4.8-10.8)
[2025-06-29 08:54] LABS: Anion Gap 7.0 (3-11); Blood Urea Nitrogen 31.0 mg/dl (6-23); Calcium 8.4 mg/dl (8.6-10.3); Carbon Dioxide 24.0 mmol/L (21-32); Chloride 113.0 mmol/L (98-107); Creatinine Clr Calc Pharmacy 21.6 ml/min; Glucose 100.0 mg/dl (70-99(Fasting)); Potassium 3.4 mmol/L (3.5-5.1); Sodium 144.0 mmol/L (136-145)
[2025-06-29] MEDS: THIAMINE HCL 100 MG TAB PO SCH (10:46)
[2025-06-29 18:16] LABS: Cdiff Toxin B Gene (2yr or >) Negative Cdiff Gene (Neg)
[2025-06-29 18:48] LABS: Adenovirus F 40/41 PCR Not Detected (NotDetected); Campylobacter PCR Not Detected (NotDetected); Enteroaggregative E.coli(EAEC) Not Detected (NotDetected); Shiga-like Toxin E.coli (STEC) Not Detected (NotDetected); Vibrio species PCR Not Detected (NotDetected)
[2025-06-30] MEDS: ONDANSETRON INJ 2 MG/ML 2 ML VIAL IV SCH (03:16)
[2025-06-30 09:52] LABS: Hematocrit (blood only) 34.6 % (37.0-47.0); Hemoglobin 11.8 g/dl (12.0-16.0); Mean Corpuscular Hemoglobin 30.7 pg (25.0-34.0); Mean Corpuscular Volume 90.1 fL (80.0-100.0); Platelet Count 204 K/uL (130-400); RDW Standard Deviation 41.7 fL (36.4-46.3); Red Blood Count 3.84 M/uL (4.20-5.40); White Blood Count 7.68 K/ul (4.8-10.8)
[2025-06-30 10:06] LABS: Anion Gap 8.0 (3-11); Blood Urea Nitrogen 25.0 mg/dl (6-23); Calcium 8.7 mg/dl (8.6-10.3); Carbon Dioxide 27.0 mmol/L (21-32); Chloride 107.0 mmol/L (98-107); Creatinine Clr Calc Pharmacy 22.1 ml/min; Glucose 144.0 mg/dl (70-99(Fasting)); Potassium 3.1 mmol/L (3.5-5.1); Sodium 142.0 mmol/L (136-145)
[2025-06-30] MEDS: POTASSIUM CHLORIDE CRTAB 20 MEQ TABCR PO STA (12:02)
--- NOTE | 2025-06-30 13:09 | Hospitalist Progress Note ---
Date of Service June 30, 2025 Assessment & Plan (1) Acute encephalopathy: (2) Leucocytosis: (3) JHOANNA (acute kidney injury): (4) Hypothyroidism: (5) HTN (hypertension): Plan This is a 85-year-old female who was brought to the hospital after she was found wandering in her neighborhood. She was noted to have JOHANNA on admission. CT scan of the head did not show any acute abnormalities # Acute encephalopathy |Metabolic encephalopathy| dementia - initally with Leukocytosis concern for infection poa however no source, did receive empiric zosyn but this has been continued. CT head without acute findings. Lives home alone - became a permanent resident at [facility] in March. Family unable to provide 21/05 care. zprexa 2.5 BID has been started. QTc 399 Pt with hx of benzo use - has not had on this admission, can add SSRI or titrate zyrpexa as needed. CM following - will need placement 1:1 sitter for elopment risk #JOHANNA | HTN Creatinine 3.8 on admission, improved to 1.41 Pt removing IV lines encourage PO fluids. Lisinopril and HCTZ held with JOHANNA Bps well controlled K 3.1 replaced PO AM BMP and Mag #Hypothyroidism - Continue home medication Dispo: continued inpatient stay awaiting safe discharge dispo DVT proh: Low risk, encourage ambulation Daughter updated by phone 06/30 Admission and Anticipated Discharge Date Admission Date: June 26, 2025 Subjective Patient lying in bed, voices no complaints, denied pain states she new her potassium was low because " she just knew" Review of Systems Review of Systems: All systems reviewed & are unremarkable except as noted in Subjective Physical Exam Physical Exam: General: NAD, vitals as above, lying in bed Pulm: breathing unlabored CV: well perfused extremities: moves all extremities alert to self Results & Data Results & Data Vital Signs (Past 12 Hours) Vital Signs Temp Pulse Resp BP Pulse Ox O2 Del Method 06/30/25 08:44 Room Air 06/30/25 07:18 98.6 F 65 18 133/65 98 Room Air PG Care Time/CCT Total # of Minutes Spent Total Time Spent with Patient: Total time spent is greater than 50% in coordination of care (as documented) at patient's floor/unit and/or counseling patient: Coding Level of Care Code 88177 SUB INP/OBS CARE 2/35MIN Diagnoses Acute encephalopathy G93.40 Leucocytosis D72.829 JOHANNA (acute kidney injury) N17.9 Acquired hypothyroidism E03.9 Hypothyroidism type: acquired Primary hypertension I10 Hypertension type: primary hypertension (4) Hypothyroidism Hypothyroidism type: acquired Qualified Code(s): E03.9 - Hypothyroidism, unspecified (5) HTN (hypertension) Hypertension type: primary hypertension Qualified Code(s): I10 - Essential (primary) hypertension
[2025-06-30] MEDS: ONDANSETRON INJ 2 MG/ML 2 ML VIAL IV PRN (17:14)
[2025-07-01 10:19] LABS: Anion Gap 9.0 (3-11); Blood Urea Nitrogen 17.0 mg/dl (6-23); Calcium 9.0 mg/dl (8.6-10.3); Carbon Dioxide 26.0 mmol/L (21-32); Chloride 107.0 mmol/L (98-107); Creatinine Clr Calc Pharmacy 24.7 ml/min; Glucose 117.0 mg/dl (70-99(Fasting)); Magnesium 1.4 mg/dl (1.7-2.4); Potassium 3.7 mmol/L (3.5-5.1); Sodium 142.0 mmol/L (136-145)
[2025-07-01] MEDS: MAGNESIUM OXIDE 400 MG TAB PO SCH (10:49)
--- NOTE | 2025-07-01 11:58 | Hospitalist Progress Note ---
"Date of Service July 01, 2025 Assessment & Plan (1) Acute encephalopathy: (2) Leucocytosis: (3) JOHANNA (acute kidney injury): (4) Hypothyroidism: (5) HTN (hypertension): Plan This is a 85-year-old female who was brought to the hospital after she was found wandering in her neighborhood. She was noted to have JOHANNA on admission. CT scan of the head did not show any acute abnormalities # Acute encephalopathy |Metabolic encephalopathy| dementia - initally with Leukocytosis concern for infection poa however no source, did receive empiric zosyn but this has been continued. CT head without acute findings. Lives home alone - became a permanent resident at [facility] in March. Family unable to provide 21/05 care. zprexa 2.5 BID has been started. QTc 399 Pt with hx of benzo use - has not had on this admission, can add SSRI or titrate zyrpexa as needed. CM following - will need placement 1:1 sitter for elopement risk - changed to PRN worsening emotional state when someone is not in the room with her - will increase AM zyprexa to 5mg #JOHANNA | HTN Creatinine 3.8 on admission, improved to 1.26. Pt removing IV lines encourage PO fluids. Continue to hold HCTZ and lisinopril. Amlodopine resume for 07/02 K 3.1 replaced PO, mag low - started on daily PO supplementation #Hypothyroidism - Continue home medication Dispo: continued inpatient stay awaiting safe discharge dispo DVT proh: Low risk, encourage ambulation Daughter updated by phone 06/30 Admission and Anticipated Discharge Date Admission Date: June 26, 2025 Subjective patient seen ambulating in the room, knows that she is the hospital, thinks its 2019 asking to see her , becomes emotional Review of Systems Review of Systems: All systems reviewed & are unremarkable except as noted in Subjective Physical Exam Physical Exam: General: NAD, vitals as above, ambulating around the room Pulm: breathing unlabored CV: well perfused extremities: moves all extremities alert to self Results & Data Results & Data Laboratory Results bmp and mag reviewed PG Care Time/CCT Total # of Minutes Spent Total Time Spent with Patient: Total time spent is greater than 50% in coordination of care (as documented) at patient's floor/unit and/or counseling patient: Coding Level of Care Code 17791 SUB INP/OBS CARE MIN Diagnoses Acute encephalopathy G93.40 Leucocytosis D72.829 JOHANNA (acute kidney injury) N17.9 Acquired hypothyroidism E03.9 Hypothyroidism type: acquired Primary hypertension I10 Hypertension type: primary hypertension (4) Hypothyroidism Hypothyroidism type: acquired Qualified Code(s): E03.9 - Hypothyroidism, unspecified (5) HTN (hypertension) Hypertension type: primary hypertension Qualified Code(s): I10 - Essential (primary) hypertension"
[2025-07-01] MEDS: OLANZAPINE 2.5 MG TAB PO SCH (20:18)
[2025-07-01] MEDS: MEPROBAMATE 400 MG PO PRN (23:43)
[2025-07-02 07:23] VITALS: BP 168/77; RESP 18; TEMP 97.7; O2SAT 97
--- NOTE | 2025-07-02 09:51 | Discharge Summary ---
"Discharge Summary Date of Service July 02, 2025 Principal Dx & Hospital Course #1 = Principal Diagnosis (1) Dementia: (2) Acute encephalopathy: (3) Leucocytosis: (4) JOHANNA (acute kidney injury): (5) Hypothyroidism: (6) HTN (hypertension): Plan This is a 85-year-old female who was brought to the hospital after she was found wandering in her neighborhood. She was noted to have JOHANNA on admission. CT scan of the head did not show any acute abnormalities # Acute encephalopathy |Metabolic encephalopathy| dementia - initially with Le ukocytosis concern for infection poa however no source, did receive empiric zosyn but this has been continued. CT head without acute findings. Has been started on zyprexa 5mg Qam and 2.5mg PM. Pt with hx of benzo use - has not had on this admission, can add SSRI or titrate zyrpexa as needed. Lives home alone - became a permanent resident at [facility] in March. Family unable to provide 21/05 care. Discharge to [facility] today #JOHANNA | HTN Creatinine 3.8 on admission, improved to 1.26. Pt removing IV lines encourage PO fluids. Resume lisinopril and amlodipine. HCTZ discontinued. K 3.1 replaced PO, mag low - started on daily PO supplementation #Hypothyroidism - Continue home medication Dispo: discharged today Daughter updated by phone 06/30 Notes For Next Care Provider Medication Changes From Visit stopped HCTZ and morphine started zyprexa, B1 and mag Admission HPI Per Admitting Provider Pleasant 85-year-old female with a history of hypertension, hypothyroidism who was brought to the hospital today after found wandering in her neighborhood. Upon arrival at the ED, she was confused and no history could could be obtained from her. In the ED vital signs were normal, CT scan of the head showed only chronic changes, WBC was 12,000 and serum creatinine was 3.18 from a baseline of 0.90 just 3 months prior. She was given a bolus of IV fluids and will be admitted to the hospital further management. Discharge Exam General: NAD, vitals as above, sitting on the side of bed,appears well Pulm: breathing unlabored CV: well perfused extremities: moves all extremities alert and oriented x 1-2 Discharge Plan Discharge Items Patient Disposition: Transfer Long Term Fac Reason For Visit: ACUTE ENCEPHAALOPATHY Discharge Diagnosis: Dementia Condition on Discharge: Good Activity: Resume your previous activity Non-emergency contact: Primary Care Provider Call non-emergency contact if: you have any medication questions, your symptoms worsen and your temperature is above 101 Follow-up/Referrals: Mary Mckeon MD [Primary Care Provider] - Diet: Regular Diet Texture: Easy to Chew Addtl Attending Provider Instructions: Ms. Andrew, You were hospitalized after worsening confusions and wondering in your neighborhood. Did have a little bit of dehydration and JOHANNA that has resolved. No other metabolic causes likely due to worsening dementia. Started on zyprexa 5mg AM and 2.5mg nightly with improvement in behaviors. Did have an episode where she felt like she couldn't swallow - she was evaluated by [facility], recommend aspiration precautions and easy to chew diet. Tolerated breakfast day of discharge with no issue. Recommend adding SSRI if anxiety worsens. Started on Vit B1 and mag. Continue lisinopril and amlodipine. HCTZ has been stopped. Pending Studies at Discharge: No Stand-Alone Forms: My [facility] Skilled Items Patient informed of condition?: Yes DNR: No Discharge Level of Care: Skilled Communicable Disease: No Discharge Prognosis: Stable Lines: None Urinary Catheter: No Medications and DC Order Prescriptions: New olanzapine 5 mg Tablet 5 mg PO QAM Qty: 30 0RF thiamine HCl (vitamin B1) 100 mg Tablet 100 mg PO QAM Qty: 30 0RF olanzapine 2.5 mg Tablet 2.5 mg PO HS Qty: 30 0RF magnesium oxide 400 mg (241.3 mg magnesium) Tablet 400 mg PO QAM Qty: 30 0RF Continued levothyroxine 75 mcg tablet 75 mcg PO DAILY Qty: 90 2RF lisinopril 20 mg tablet 20 mg PO DAILY Qty: 90 1RF Rx Instructions: PER EXT MED HX--LAST FILLED 07/13/23 FOR 90 TABS. amlodipine 5 mg tablet 5 mg PO DAILY Qty: 90 2RF meprobamate 400 mg tablet 400 mg PO .Q4-6XDAY PRN (Reason: pain) Qty: 60 0RF atorvastatin 40 mg tablet 40 mg PO DAILY Qty: 90 3RF Rx Instructions: PER EXT MED HX --LAST FILLED 01/17/24 FOR 90 TABS cholecalciferol (vitamin D3) 2,000 unit capsule 2,000 units PO DAILY Qty: 30 0RF Patient Comments: 06/26- otc unable to verify Held hydroxyzine pamoate 50 mg capsule 0 mg PO Q4H Hold Instructions: Provider's Order Patient Comments: 06/26- last filled 02/04 20 day supply #120 Discontinued diazepam 5 mg tablet 5 mg PO BID PRN (Reason: anxiety) Qty: 60 3RF morphine 15 mg tablet extended release 15 mg PO HS PRN (Reason: severe pain) Qty: 90 0RF hydrochlorothiazide 12.5 mg tablet 12.5 mg PO DAILY Qty: 90 3RF Discharge Orders: Discharge Order (Routine); Ordered 07/02/25 Ordered By: Pinky Lui Admission Data Admit Date/Time: 06/26/25 17:26 Attending Provider: Jeri Hinson Admit Provider: Isaias Mckeon Primary Care Provider: Mary Mckeon Other Providers: Isaias Mckeon; [place] Hospital Stay Data Consultations 06/26/25 16:37 ED Decision to Admit Stat Diagnostic Imagining Performed Chest X-Ray 06/26/25 15:40 EXAM: Portable AP chest radiograph TECHNIQUE: AP portable radiograph of the chest was obtained. INDICATION: Shortness of breath Comparison: Chest radiograph April 03, 2025. FINDINGS: LINES and TUBES: None CARDIOVASCULAR: Cardiac silhouette is stably and mildly enlarged in size. Atherosclerosis of the thoracic aorta LUNGS/PLEURA: No focal consolidation identified. Chronic interstitial lung changes. No significant pleural fluid. No discernible pneumothorax. OSSEOUS/OTHER: No displaced acute osseous process identified. IMPRESSION: No radiographic evidence of acute cardiopulmonary process. Electronically signed by Alfredo Mcleod 06-26-2025 4:[address] 06/26/25 15:40 Clinical History: Confusion Technique: Axial computed tomography images were obtained of the brain without intravenous contrast. Findings: There is diffuse cerebral atrophy, within expected limits for the patient's age. Areas of decreased attenuation are seen within the periventricular white matter, likely representing chronic small vessel ischemic disease. There is no definite sign of acute or old infarction. No intracranial hemorrhage is evident. No definite mass lesion is seen on this noncontrast examination. There is no midline shift or other form of herniation. No hydrocephalus is seen. No fracture is identified. The orbits and the visualized paranasal sinuses appear unremarkable. The mastoid air cells appear clear. Impression: 1. Cerebral atrophy and chronic small vessel ischemic disease 2. Otherwise unremarkable noncontrast CT of the brain Electronically signed by Andres Khan 06-26-2025 4:29 PM Pending Results Patient Have Any Pending Studies at Discharge: No Discharge Instructions Given to Patient (Per Discharging Provider) Ms. Andrew, You were hospitalized after worsening confusions and wondering in your neighborhood. Did have a little bit of dehydration and JOHANNA that has resolved. No other metabolic causes likely due to worsening dementia. Started on zyprexa 5mg AM and 2.5mg nightly with improvement in behaviors. Did have an episode where she felt like she couldn't swallow - she was evaluated by [facility], recommend aspiration precautions and easy to chew diet. Tolerated breakfast day of discharge with no issue. Recommend adding SSRI if anxiety worsens. Started on Vit B1 and mag. Continue lisinopril and amlodipine. HCTZ has been stopped. Total Time Total Time Spent Total Time Spent (In Minutes): Time spent day of discharge 35 minutes including direct patient care, medication reconciliation, documentation, review of labs and images, and coordination of care. discussed with CM Coding Level of Care Code 93233 INP/OBS DISCH >30 MIN Diagnoses Dementia F03.90 Acute encephalopathy G93.40 Leucocytosis D72.829 JOHANNA (acute kidney injury) N17.9 Acquired hypothyroidism E03.9 Hypothyroidism type: acquired Primary hypertension I10 Hypertension type: primary hypertension"
[2025-07-02 11:39] VITALS: PULSE 60
== END 2025-07-02 13:30 | DRG 884 ==
LOC: ED 14:57 → SUATTDRO 17:26 → EDINP 17:26 → 3E 06-27 19:28